=== PATIENT | female | born 1980 | race African-American/Black ===

== ENCOUNTER 2016-06-07 14:11 | Emergency (ER) | payer OTHER ==
[2016-06-07] MEDS ORDERED: RX INFO: IV CONTRAST WAS GIVEN 1 EACH MISC MISCELLANE PRN (14:35)
[2016-06-07] MEDS ORDERED: IOHEXOL 350 MG/ML 25 ML BOTTLE (ORAL USE) PO PRN (14:35)
[2016-06-07] MEDS ORDERED: SODIUM CHLORIDE 0.9% 1,000 ML IV ONE (14:35)
[2016-06-07] MEDS ORDERED: ONDANSETRON 4 MG/2 ML VIAL IVP STA (14:35)
[2016-06-07] MEDS ORDERED: MORPHINE SULFATE 4 MG/ML SYRINGE IVP STA (14:35)
[2016-06-07 15:32] LABS: Anisocytosis Slight; Basophils % (A) 1 %; CH 25.3; CHCM 31.3; Eosinophils # (A) 0.2 k/uL (0-0.7); Eosinophils % (A) 5 %; HCT 37.1 % (34.0-46.0); HDW 2.58; HGB 11.4 gm/dL (11.4-16.0); Hypochromasia Slight; Luc # (Auto) 0.13; Luc % (Auto) 3; Lymphocytes # (A) 1.3 k/uL (1.0-4.8); Lymphocytes % (A) 29 %; MCHC 30.8 g/dL (31.0-37.0); MCV 81.3 fL (80.0-100.0); Mean Platelet Volume 7.3; Monocytes # (A) 0.4 k/uL (0-1.0); Monocytes % (A) 8 %; Neutrophils # (A) 2.5 k/uL (1.3-7.7); Neutrophils % (A) 54 %; RBC 4.56 m/uL (3.80-5.40); RDW 16.1 % (11.5-15.5); WBC 4.6 k/uL (3.8-10.6); WBC (Perox) 4.88
[2016-06-07 15:36] LABS: Appearance,Urine Cloudy (Clear); Bilirubin,Urine Negative (Negative); Glucose,Urine (UA) Negative (Negative); Ketones,Urine Negative (Negative); Leukocyte Esterase,Urine Negative (Negative); Mucus,Urine Rare /hpf; Nitrite,Urine Negative (Negative); Particle Count 4585; Protein,Urine Trace (Negative); RBC,Urine <1 /hpf (0-5); Specific Gravity,Urine 1.018 (1.001-1.035); Squamous Epithelial Cell,Urine 7 /hpf (0-4); UA Billing (MACRO vs. MICRO) MICRO; WBC,Urine 4 /hpf (0-5)
[2016-06-07 15:42] LABS: ALT 28 U/L (9-52); AST 24 U/L (14-36); Alkaline Phosphatase 52 U/L (38-126); Anion Gap 12 mmol/L; Blood Urea Nitrogen 14 mg/dL (7-17); Calcium 9.5 mg/dL (8.4-10.2); Carbon Dioxide 25 mmol/L (22-30); Chloride 108 mmol/L (98-107); Glucose 96 mg/dL (74-99); Non-African American GFR(MDRD) >60 (>60 ml/min/1.73 sqM); Potassium 4.4 mmol/L (3.5-5.1); Sodium 145 mmol/L (137-145); Total Bilirubin 0.3 mg/dL (0.2-1.3); Total Protein 7.6 g/dL (6.3-8.2)
--- NOTE | 2016-06-07 17:19 | CT ---
EXAMINATION TYPE: CT abdomen pelvis w con DATE OF EXAM: 06/07/2016 5:10 PM COMPARISON: 02/22/2013 HISTORY: Pt states of periumbilical pain and hernia. CT DLP: 1775 mGycm Automated exposure control for dose reduction was used. TECHNIQUE: Helical acquisition of images was performed from the lung bases through the pelvis. CONTRAST: Performed with Oral Contrast and with IV Contrast, patient injected with 100 mL of Omnipaque 300. FINDINGS: The lung bases are clear of consolidation. There is mild subsegmental atelectasis in the left lower l obe. There is no pleural effusion. There is a small hiatal hernia. There is no pericardial effusion. The liver spleen pancreas appear normal. Bile ducts are not dilated. There are clips from cholecystec renetta. There is no adrenal mass. Kidneys show satisfactory contrast opacification. There is no hydrone phrosis. There is no retroperitoneal adenopathy. I see no intestinal wall thickening. There are no di lated loops. Uterus is tilted to the right side. Bladder distends smoothly. There is no sign of a pel shira mass. Appendix appears normal. There are surgical clips around the stomach. There are tiny bilate ral renal cortical cysts that measure up to 1 cm. The heart is probably enlarged. IMPRESSION: THERE IS PROBABLY CARDIOMEGALY. NO SIGN OF ACUTE ABDOMEN AND PELVIS. NO ADVERSE CHANGE COMPARED TO OL D EXAM.
--- NOTE | 2016-06-07 17:39 | ED ---
General Adult HPI - General Chief complaint: Abdominal Pain Stated complaint: Dr Givens/Erickson Pain Time Seen by Provider: 06/07/16 14:25 Source: patient, RN notes reviewed, old records reviewed Mode of arrival: ambulatory Limitations: no limitations - History of Present Illness Initial comments: 35 year old female with history gastric bypass presenting for abdominal pain. Patient states she has 2 ventral hernias which have been bothering her in the past few days. She states she has had worsening abdominal pain over the past 3 days. States nausea associated but no vomiting. She denies any diarrhea or constipation. She denies any blood in her stool. She denies any fevers or chills. She states she has follow-up on the first with Dr. Enriquez for further evaluation of her hernias. - Related Data Home Medications Medication Instructions Recorded Confirmed amLODIPine [Norvasc] 10 mg PO DAILY 03/26/14 06/07/16 ALPRAZolam [Xanax] 0.5 mg PO BID PRN 06/10/14 06/07/16 Loratadine [Claritin] 10 mg PO DAILY PRN 06/10/14 06/07/16 Fluticasone Propionate [Flonase 2 spray EA NOSTRIL DAILY PRN 08/23/14 06/07/16 Allergy Relief] Lisinopril [Prinivil] 20 mg PO DAILY 08/23/14 06/07/16 Butalbit/Acetamin/Caff/Codeine 1 - 2 cap PO Q4HR PRN 03/14/15 06/07/16 [Fioricet-Cod 79-921-81-30 Cap] HYDROcodone/APAP 7.5-325MG [[place] 1 tab PO Q4H PRN 12/29/15 06/07/16 7.5-325] Omeprazole [PriLOSEC] 40 mg PO AC-BRKFST 06/07/16 06/07/16 Propranolol HCl [Propranolol HCl 120 mg PO DAILY 06/07/16 06/07/16 ER] Previous Rx's Medication Instructions Recorded Ferrous Sulfate [Feosol] 325 mg PO TID #90 tab 05/13/15 Folic Acid 1 mg PO DAILY #30 tablet 05/13/15 HYDROcodone/APAP 7.5-325MG [[place] 1 tab PO Q6HR PRN #12 tab 06/07/16 7.5-325] Ondansetron Odt [Zofran Odt] 4 mg PO Q8HR PRN #12 tab 06/07/16 Allergies Allergy/AdvReac Type Severity Reaction Status Date / Time sulfamethoxazole Allergy Rash/Hives Verified 06/07/16 14:44 [From Bactrim] trimethoprim [From Bactrim] Allergy Rash/Hives Verified 06/07/16 14:44 Review of Systems ROS Statement: Those systems with pertinent positive or pertinent negative responses have been documented in the HPI. Constitutional: No fevers. No chills. No change in appetite. No unexpected weight loss. Eyes: No visual changes. No eye pain. No sensitivity to light. HENT: No sinus pressure. No ear pain. No hearing changes. No epistaxis. No sore throat. Respiratory: No cough. No SOB. No wheezing. Cardiovascular: No chest pain. No palpitations. No lower extremity edema. Abdomen: Positive abdominal pain. Positive nausea. No vomiting. No diarrhea. Positive ventral hernias. Genitourinary: No dysuria. No hematuria. No difficulty urinating. No flank pain. Musculoskeletal: No injury. No back pain. No myalgias. Skin: No rash. No lesions. No lacerations. Neuro: No gross strength deficits. No LOC. No seizures. No headache. Psych: No confusion. No memory changes. No anxiety/depression. ROS Other: All systems not noted in ROS Statement are negative. Past Medical History Past Medical History: Hypertension, Pneumonia Additional Past Medical History / Comment(s): ULCER LONG AGO. MIGRAINES, ABDOMINAL PAIN. hernia History of Any Multi-Drug Resistant Organisms: None Reported Past Surgical History: Bariatric Surgery, Breast Surgery, Section, Cholecystectomy, Hernia Repair, Tonsillectomy Additional Past Surgical History / Comment(s): CONCEPCIÓN-N-Y 2007. BREAST REDUCTION. TUMMY RADHA. INC[employer] Hernia repair 08/22/14 Past Anesthesia/Blood Transfusion Reactions: No Reported Reaction, Family History of Problems w/ Anesthesia Additional Past Anesthesia/Blood Transfusion Reaction / Comment(s): MOTHER AWAKENS DURING SURGERY. Past Psychological History: Anxiety, Panic Disorder Smoking Status: Current every day smoker Past Alcohol Use History: Occasional Past Drug Use History: Marijuana Additional Drug Use History / Comment(s): RARE USE OF MARIJUANA - Past Family History Father Family Medical History: Hypertension Brother(s) Family Medical History: No Reported History General Exam - General Exam Comments Initial Comments: General: Awake and Alert. No acute distress. Does not appear acutely ill. Obese. Eyes: ANITA, EOM intact. No nystagmus. No scleral icterus. HENT: Atraumatic, normocephalic. Mucous membranes moist. Trachea midline. Neck: The neck is supple, there is no tenderness or JVD. Cardiovascular: Regular rate and rhythm. No murmur, rub, or gallop is appreciated. Distal pulses intact. Respiratory: Lungs are clear to auscultation bilaterally. No wheezes, rales, rhonchi. No respiratory distress. Gastrointestinal: Soft, mild tenderness over her umbilical hernia, which is reducible. There is another ventral hernia in the middle right abdomen which is also reducible. No rebound or guarding. Non-distended. No masses or organomegaly noted. No CVA tenderness. Musculoskeletal: No tenderness. Normal ROM. No gross deformity. No strength deficits. Neurological: A&Ox3. CN II-XII grossly intact, There are no obvious motor or sensory deficits. Coordination appears grossly intact. Speech is normal. Skin: Skin is warm and dry and no rashes or lesions are noted. Psychiatric: Cooperative, appropriate mood & affect, normal judgment. Limitations: no limitations Course Vital Signs 06/07/16 06/07/16 14:19 18:28 Temperature 98.1 F 97.9 F Pulse Rate 72 78 Respiratory 18 16 Rate Blood Pressure 143/65 146/87 O2 Sat by Pulse 99 Oximetry Medical Decision Making - Medical Decision Making 35-year-old female with history of gastric bypass presenting for abdominal pain. Patient does have 2 ventral hernias which are reducible on exam. She has tenderness over these areas of hernia but no evidence of acute peritonitis at this time. Given her history of gastric bypass there are concerns for obstruction, CT imaging was ordered. Lab workup was performed which is grossly unremarkable. Patient was given pain and nausea medications and IV fluids during course in ED. Upon reevaluation patient was updated on results and imaging. CT imaging with no acute process. She is feeling improved after medications. Discussed reassuring findings at this time. Recommend close follow-up with her PCP and her surgeon Dr. Enriquez, she states she has an appointment next week. Discussed concerning signs and symptoms for immediate return to the ED. Patient is agreeable with plan and discharge. - Lab Data Result diagrams: 06/07/16 15:10 06/07/16 15:10 Lab Results 06/07/16 06/07/16 06/07/16 Range/Units 15:10 15:10 15:10 WBC 4.6 (3.8-10.6) k/uL RBC 4.56 (3.80-5.40) m/uL Hgb 11.4 (11.4-16.0) gm/dL Hct 37.1 (34.0-46.0) % MCV 81.3 (80.0-100.0) fL MCH 25.0 (25.0-35.0) pg MCHC 30.8 L (31.0-37.0) g/dL RDW 16.1 H (11.5-15.5) % Plt Count 338 (150-450) k/uL Neutrophils % 54 % Lymphocytes % 29 % Monocytes % 8 % Eosinophils % 5 % Basophils % 1 % Neutrophils # 2.5 (1.3-7.7) k/uL Lymphocytes # 1.3 (1.0-4.8) k/uL Monocytes # 0.4 (0-1.0) k/uL Eosinophils # 0.2 (0-0.7) k/uL Basophils # 0.0 (0-0.2) k/uL Hypochromasia Slight Anisocytosis Slight Sodium 145 (137-145) mmol/L Potassium 4.4 (3.5-5.1) mmol/L Chloride 108 H (98-107) mmol/L Carbon Dioxide 25 (22-30) mmol/L Anion Gap 12 mmol/L BUN 14 (7-17) mg/dL Creatinine 0.70 (0.52-1.04) mg/dL Est GFR (MDRD) Af Amer >60 (>60 ml/min/1.73 sqM) Est GFR (MDRD) Non-Af >60 (>60 ml/min/1.73 sqM) Glucose 96 (74-99) mg/dL Plasma Lactic Acid Gene (0.7-2.0) mmol/L Calcium 9.5 (8.4-10.2) mg/dL Total Bilirubin 0.3 (0.2-1.3) mg/dL AST 24 (14-36) U/L ALT 28 (9-52) U/L Alkaline Phosphatase 52 (38-126) U/L Total Protein 7.6 (6.3-8.2) g/dL Albumin 4.4 (3.5-5.0) g/dL Lipase 120 (23-300) U/L Urine Color Urine Appearance (Clear) Urine pH (5.0-8.0) Ur Specific [place] (1.001-1.035) Urine Protein (Negative) Urine Glucose (UA) (Negative) Urine Ketones (Negative) Urine Blood (Negative) Urine Nitrate (Negative) Urine Bilirubin (Negative) Urine Urobilinogen (<2.0) mg/dL Ur Leukocyte Esterase (Negative) Urine RBC (0-5) /hpf Urine WBC (0-5) /hpf Ur Squamous Epith Cells (0-4) /hpf Hyaline Casts (0-2) /lpf Urine Mucus (None) /hpf Urine HCG, Qual Not Detected (Not Detectd) 06/07/16 06/07/16 Range/Units 15:10 15:10 WBC (3.8-10.6) k/uL RBC (3.80-5.40) m/uL Hgb (11.4-16.0) gm/dL Hct (34.0-46.0) % MCV (80.0-100.0) fL MCH (25.0-35.0) pg MCHC (31.0-37.0) g/dL RDW (11.5-15.5) % Plt Count (150-450) k/uL Neutrophils % % Lymphocytes % % Monocytes % % Eosinophils % % Basophils % % Neutrophils # (1.3-7.7) k/uL Lymphocytes # (1.0-4.8) k/uL Monocytes # (0-1.0) k/uL Eosinophils # (0-0.7) k/uL Basophils # (0-0.2) k/uL Hypochromasia Anisocytosis Sodium (137-145) mmol/L Potassium (3.5-5.1) mmol/L Chloride (98-107) mmol/L Carbon Dioxide (22-30) mmol/L Anion Gap mmol/L BUN (7-17) mg/dL Creatinine (0.52-1.04) mg/dL Est GFR (MDRD) Af Amer (>60 ml/min/1.73 sqM) Est GFR (MDRD) Non-Af (>60 ml/min/1.73 sqM) Glucose (74-99) mg/dL Plasma Lactic Acid Gene 1.1 (0.7-2.0) mmol/L Calcium (8.4-10.2) mg/dL Total Bilirubin (0.2-1.3) mg/dL AST (14-36) U/L ALT (9-52) U/L Alkaline Phosphatase (38-126) U/L Total Protein (6.3-8.2) g/dL Albumin (3.5-5.0) g/dL Lipase (23-300) U/L Urine Color Yellow Urine Appearance Cloudy H (Clear) Urine pH 6.0 (5.0-8.0) Ur Specific [place] 1.018 (1.001-1.035) Urine Protein Trace H (Negative) Urine Glucose (UA) Negative (Negative) Urine Ketones Negative (Negative) Urine Blood Negative (Negative) Urine Nitrate Negative (Negative) Urine Bilirubin Negative (Negative) Urine Urobilinogen 4.0 (<2.0) mg/dL Ur Leukocyte Esterase Negative (Negative) Urine RBC <1 (0-5) /hpf Urine WBC 4 (0-5) /hpf Ur Squamous Epith Cells 7 H (0-4) /hpf Hyaline Casts 1 (0-2) /lpf Urine Mucus Rare H (None) /hpf Urine HCG, Qual (Not Detectd) - Radiology Data Radiology results: report reviewed, image reviewed Disposition Clinical Impression: Nonspecific abdominal pain, Ventral hernia Disposition: HOME SELF-CARE Condition: Stable Instructions: Abdominal Pain (ED), Ventral Hernia (ED) Prescriptions: HYDROcodone/APAP 7.5-325MG [[place] 7.5-325] 1 tab PO Q6HR PRN #12 tab PRN Reason: Pain Ondansetron Odt [Zofran Odt] 4 mg PO Q8HR PRN #12 tab PRN Reason: Nausea Referrals: Pdero Luis Mandel MD [Primary Care Provider] - 1-2 days Time of Disposition: 18:02
[2016-06-07] MEDS ORDERED: HYDROcodone/APAP 5-325MG 1 EACH TAB PO STA (18:11)
[2016-06-07 18:29] VITALS: BP 146/87; PULSE 78; RESP 16; TEMP 97.9
== END 2016-06-07 18:42 | disposition home or self-care (01) ==
LOC: EC 14:11
DX: K43.9 Ventral hernia without obstruction or gangrene (principal); R10.9 Unspecified abdominal pain; I10 Essential (primary) hypertension; F41.9 Anxiety disorder, unspecified; E11.9 Type 2 diabetes mellitus without complications; F41.0 Panic disorder [episodic paroxysmal anxiety]; E66.9 Obesity, unspecified; F17.200 Nicotine dependence, unspecified, uncomplicated; Z87.01 Personal history of pneumonia (recurrent); Z79.899 Other long term (current) drug therapy; Z88.2 Allergy status to sulfonamides; Z98.84 Bariatric surgery status; Z98.890 Other specified postprocedural states
CPT/HCPCS: 99285 ×2; 96374 ×2; 96375 ×2; 96361 ×4; 36415; 80053; 83605; 83690; 85025; 81001; 81025; 74177; J2270; J2405; Q9967

== ENCOUNTER → 2016-06-19 | Outpatient (CLI) | payer OTHER ==
[2016-06-19 16:27] VITALS: BP 145/84; PULSE 50; TEMP 98.2; BMI 45.6
--- NOTE | 2016-06-23 17:57 | P.PN ---
Progress Note - Text DATE OF SERVICE: 06/19/2016 CHIEF COMPLAINT: History of gastric bypass. HISTORY OF PRESENT ILLNESS: Raiza Rodríguez is a 35-year-old female with history of Tricia-en-Y gastric bypass performed almost 6 going on 7 years ago. She reports having problems with chronic pain. She takes Fioricet for headaches. Separately, she has a pertinent history of massive weight loss and had a panniculectomy. Since then, she has had multiple abdominal wall hernias particularly of the umbilicus with chronic pain. As of recent she was seen in the emergency room for similar complaints. Her highest weight for her 5 feet 1 inch frame was 417 pounds. Today she comes in weighing 241 pounds. Her ideal body weight is 131 pounds. She is still 110 pounds overweight time. She has actually been able to maintain her weight loss of 1 pound in the past year. Percent excess weight loss is still 62%. Body mass index is reduced from 79 down to 45.6. Now she presents for further evaluation and management especially for treatment of her abdominal wall hernia. PAST MEDICAL HISTORY: 1. Super super morbid obesity. Prior body mass index of 79. 2. Active tobacco abuse. 3. Anxiety. 4. Hypertension. 5. Seasonal allergies. 6. Abdominal wall hernia. PAST SURGICAL HISTORY: 1. Status post Tricia-en-Y gastric bypass. 2. Panniculectomy. 3. . 4. Cholecystectomy. 5. Bilateral breast reduction. 6. Diagnostic laparoscopy with laparoscopic lysis of adhesions. 7. Laparoscopic ventral incisional hernia repair. MEDICATIONS: 1. Norvasc. 2. Propranolol. 3. Zofran. 4. Prilosec. 5. Claritin. 6. Prinivil. 7. [place]. 8. Folic acid. 9. Flonase. 10. Iron sulfate. 11. Fioricet. 12. Xanax. ALLERGIES: 1. BACTRIM. 2. HYDROMORPHONE. 3. TRIMETHOPRIM. SOCIAL HISTORY: Active tobacco use with alcohol use. Also has occasional marijuana use. FAMILY HISTORY: Pertinent for morbid obesity. Also has diabetes in her family. REVIEW OF SYSTEMS: CONSTITUTIONAL: [place] body weight 131 pounds. Highest weight of 417 pounds. Present weight 241 pounds. Total lifetime weight loss of 176 pounds. Percent excess weight loss is 62%. She has lost 1 more pound since her last visit a year ago. Body mass index reduced from 79 down to 45.6. Total BMI point reduction of 33.4. GASTROINTESTINAL: No reports of dumping syndrome or gastroesophageal reflux disease. Her dietary intake is minimal where she barely eats one meal a day. NEURO: History of chronic pain syndrome. CARDIOVASCULAR: Hypertension. MUSCULOSKELETAL: Reports lower back pain including bilateral hip pain. HEENT: No troubles with vision or hearing. ENDOCRINE: No reports of diabetes or thyroid disorder. RESPIRATORY: Denies any dyspnea on exertion. GENITOURINARY: Denies any blood in urine. PSYCH: Denies any suicidal ideation or depression. PHYSICAL EXAM: VITAL SIGNS: 98.2, 50, 145/84; 5 feet 1 inch, 241 pounds. Body mass index 45.6. ABDOMEN: Palpable 2 cm defect along the umbilicus. Well healed panniculectomy incisions along the midline including of the lower pelvis. Tenderness noted along the right upper abdomen. HEENT: No scleral icterus. Extraocular movements grossly intact. Moist buccal mucosa. NECK: Supple without lymphadenopathy. CHEST: Unlabored respirations with equal bilateral excursions. CARDIOVASCULAR: Regular rate and rhythm. MUSCULOSKELETAL: No clubbing, cyanosis, or edema. NEURO: No focal or lateralizing signs. PSYCH: Appropriate affect. Alert and oriented to person, place, and time. LABS: Recent labs in the ER were reviewed hemoglobin low at 11.4. MCH was low at 30.8. RDW was elevated at 16.1. Slight hypochromasia identified. Chloride was elevated at 108. Lipase was within normal limits. Urine was positive for trace protein. STUDIES: Recent CT of the abdomen and pelvis obtained 06/07/2016 was also reviewed with findings demonstrating no evidence of small bowel obstruction. Cardiomegaly is identified. Hiatal hernia is identified. Atelectasis also identified. ASSESSMENT: 1. History of epigastric and periumbilical pain. 2. Incisional umbilical hernia. 3. History of Tricia-en-Y gastric bypass. 4. Status post massive weight loss of 176 pounds. 5. Active tobacco use. 6. Medical noncompliance of dietary guidelines of bariatric procedure. 7. History of chronic pain. 8. Hypertensive heart disease with cardiomegaly. PLAN: 1. I reviewed with her that surgical intervention with a laparoscopic ventral hernia repair will need approximately 4 weeks of recovery. 2. Deep venous thrombosis prophylaxis. 3. Antibiotic prophylaxis. 4. Will need an abdominal binder postop. 5. She does report pain also on the right upper quadrant which may be secondary to intestinal or intra-abdominal adhesions, which will be addressed at the time of her procedure. 6. She also has known history of right inguinal hernia from previous operations; however, she is asymptomatic at this time. 7. Would recommend additional adjuncts for her pain control. 8. As she is on chronic pain meds, would also recommend referral to a pain specialist for management.
== END | disposition home or self-care (01) ==
LOC: BARWHC3 14:15
PROVIDERS: ATTEND Surgery Plastic and Reconstructive Surgery
DX: Z48.815 Encounter for surgical aftercare following surgery on the digestive system (principal); Z98.84 Bariatric surgery status; Z68.42 Body mass index [BMI] 45.0-49.9, adult; R51 Headache; R10.13 Epigastric pain; R10.10 Upper abdominal pain, unspecified; K42.9 Umbilical hernia without obstruction or gangrene; Z91.11 Patient's noncompliance with dietary regimen; F17.200 Nicotine dependence, unspecified, uncomplicated; G89.29 Other chronic pain; I11.9 Hypertensive heart disease without heart failure; I51.7 Cardiomegaly; Z88.1 Allergy status to other antibiotic agents; Z88.8 Allergy status to other drugs, medicaments and biological substances; F12.90 Cannabis use, unspecified, uncomplicated; Z79.899 Other long term (current) drug therapy; F41.9 Anxiety disorder, unspecified
CPT/HCPCS: 99211

== ENCOUNTER 2016-06-27 11:18 | Emergency (ER) | payer OTHER ==
--- NOTE | 2016-06-27 12:08 | ED ---
General Adult HPI - General Chief complaint: Abdominal Pain Stated complaint: vomiting Time Seen by Provider: 06/27/16 11:53 Source: patient, RN notes reviewed Mode of arrival: ambulatory Limitations: no limitations - History of Present Illness Initial comments: Patient 35-year-old female who presents emergency room today with multiple complaints. She does admit to cough congestion with some sinus pressure. She also admits to lower abdominal pain with hernias. States she is 3 hernias that are scheduled to be repaired. She states she's had some symptoms of nausea vomiting started 2 days ago. She states that since nausea and vomiting the pain in the abdomen has increased over these hernias. She states she feels that it is consistent with pain that she's had in the past. She also admits that she is out of pain medication of [place] that she's taken for this pain. Patient does admit to increased sinus pressure congestion and tenderness over the sinuses. Admits to a mild cough. Currently denies any other complaints or symptoms. Patient denies any recent shortness of breath, chest pain, back pain , numbness or tingling, dysuria or hematuria, constipation or diarrhea, headaches or visual changes, or any other complaints. - Related Data Home Medications Medication Instructions Recorded Confirmed amLODIPine [Norvasc] 10 mg PO DAILY 03/26/14 06/20/16 ALPRAZolam [Xanax] 0.5 mg PO BID PRN 06/10/14 06/20/16 Loratadine [Claritin] 10 mg PO DAILY PRN 06/10/14 06/20/16 Fluticasone Propionate [Flonase 2 spray EA NOSTRIL DAILY PRN 08/23/14 06/20/16 Allergy Relief] Lisinopril [Prinivil] 20 mg PO DAILY 08/23/14 06/20/16 Butalbit/Acetamin/Caff/Codeine 1 - 2 cap PO Q4HR PRN 03/14/15 06/20/16 [Fioricet-Cod 78-500-22-30 Cap] HYDROcodone/APAP 7.5-325MG [[place] 1 tab PO Q4H PRN 12/29/15 06/20/16 7.5-325] Omeprazole [PriLOSEC] 40 mg PO AC-BRKFST 06/07/16 06/20/16 Propranolol HCl [Propranolol HCl 120 mg PO DAILY 06/07/16 06/20/16 ER] Previous Rx's Medication Instructions Recorded Ferrous Sulfate [Feosol] 325 mg PO TID #90 tab 05/13/15 Folic Acid 1 mg PO DAILY #30 tablet 05/13/15 HYDROcodone/APAP 7.5-325MG [[place] 1 tab PO Q6HR PRN #12 tab 06/07/16 7.5-325] Ondansetron Odt [Zofran Odt] 4 mg PO Q8HR PRN #12 tab 06/07/16 Amoxicillin/Potassium Clav 1 each PO Q12HR #20 tab 06/27/16 [Augmentin 875-125 Tablet] Fluticasone Propionate [Flonase 1 - 2 spray EA NOSTRIL DAILY 5 Days 06/27/16 Allergy Relief] Hydrocodone/Acetaminophen [[place] 1 each PO Q6HR PRN #20 tab 06/27/16 5-325] Ondansetron Odt [Zofran ODT] 4 mg PO Q8HR PRN #15 tab 06/27/16 Allergies Allergy/AdvReac Type Severity Reaction Status Date / Time sulfamethoxazole Allergy Rash/Hives Verified 06/27/16 11:40 [From Bactrim] trimethoprim [From Bactrim] Allergy Rash/Hives Verified 06/27/16 11:40 Review of Systems ROS Statement: Those systems with pertinent positive or pertinent negative responses have been documented in the HPI. ROS Other: All systems not noted in ROS Statement are negative. Past Medical History Past Medical History: Hypertension, Pneumonia Additional Past Medical History / Comment(s): ULCER LONG AGO. MIGRAINES, ABDOMINAL PAIN. hernia History of Any Multi-Drug Resistant Organisms: None Reported Past Surgical History: Bariatric Surgery, Breast Surgery, Section, Cholecystectomy, Hernia Repair, Tonsillectomy Additional Past Surgical History / Comment(s): CONCEPCIÓN-N-Y 2008. BREAST REDUCTION. TUMRAYRAY GARCIA. [employer] Hernia repair 08/22/14 Past Anesthesia/Blood Transfusion Reactions: No Reported Reaction, Family History of Problems w/ Anesthesia Additional Past Anesthesia/Blood Transfusion Reaction / Comment(s): MOTHER AWAKENS DURING SURGERY. Past Psychological History: Anxiety, Panic Disorder Smoking Status: Current every day smoker Past Alcohol Use History: Occasional Past Drug Use History: Marijuana Additional Drug Use History / Comment(s): RARE USE OF MARIJUANA - Past Family History Father Family Medical History: Hypertension Brother(s) Family Medical History: No Reported History General Exam - General Exam Comments Initial Comments: General: The patient is awake and alert, in no distress, and does not appear acutely ill. Eye: Pupils are equal, round and reactive to light, extra-ocular movements are intact. No nystagmus. There is normal conjunctiva bilaterally. No signs of icterus. Ears, nose, mouth and throat: There are moist mucous membranes and no oral lesions. Tender over the maxillary sinuses. Neck: The neck is supple, there is no tenderness or JVD. Cardiovascular: There is a regular rate and rhythm. No murmur, rub or gallop is appreciated. Respiratory: Lungs are clear to auscultation, respirations are non-labored, breath sounds are equal. No wheezes, stridor, rales, or rhonchi. Gastrointestinal: Soft, non-distended, non-tender abdomen without masses or organomegaly noted. There is no rebound or guarding present. No CVA tenderness. Bowel sounds are unremarkable. Musculoskeletal: Normal ROM, no tenderness. Strength 5/5. Sensation intact. Pulses equal bilaterally 2+. Neurological: A&O x 3. CN II-XII intact, There are no obvious motor or sensory deficits. Coordination appears grossly intact. Speech is normal. Skin: Skin is warm and dry and no rashes or lesions are noted. Psychiatric: Cooperative, appropriate mood & affect, normal judgment. Limitations: no limitations Course Vital Signs 06/27/16 11:36 Temperature 99.3 F Pulse Rate 50 L Respiratory 16 Rate Blood Pressure 160/84 O2 Sat by Pulse 100 Oximetry Medical Decision Making - Medical Decision Making Patient examined here in the emergency room. Shows no signs of distress. She states she feels comfortable. She states she is on pain medication as had some symptoms of nausea along with nasal congestion. Options were discussed with patient about IV lab work along with IV hydration fluids and pain medication. Patient states she feels comfortable going home with oral medications. Will be given a short prescription for [place] that she's been on in the past for her abdominal pain with these hernias. States his pain is same as she's felt in the past. Does not feel that it is anything different. Patient given nausea location. Also treated for sinus infection and she is tender over the sinuses. Patient advised to follow-up family doctor/surgeon and also return here to the emergency room if any symptoms increase or worsen. Patient states understanding and is in agreement. Disposition Clinical Impression: Acute sinusitis, Medication refill, Nausea & vomiting, Chronic abdominal pain Disposition: HOME SELF-CARE Condition: Good Instructions: Sinusitis (ED) Additional Instructions: Please use [id number] Claritin/Sudafed as discussed. Please use medications as prescribed. Please follow-up the surgeon/family doctor over the next 2 days. Please return here the emergency room if any symptoms increase or worsen or for any other concerns. Prescriptions: Amoxicillin/Potassium Clav [Augmentin 875-125 Tablet] 1 each PO Q12HR #20 tab Fluticasone Propionate [Flonase Allergy Relief] 1 - 2 spray EA NOSTRIL DAILY 5 Days Hydrocodone/Acetaminophen [[place] 5-325] 1 each PO Q6HR PRN #20 tab PRN Reason: Pain Ondansetron Odt [Zofran ODT] 4 mg PO Q8HR PRN #15 tab PRN Reason: Nausea Time of Disposition: 12:07
[2016-06-27 12:33] VITALS: BP 150/70; PULSE 86; RESP 18; TEMP 98
== END 2016-06-27 12:33 | disposition home or self-care (01) ==
LOC: EC 11:18
DX: Z76.0 Encounter for issue of repeat prescription (principal); R10.30 Lower abdominal pain, unspecified; J01.90 Acute sinusitis, unspecified; G89.29 Other chronic pain; I10 Essential (primary) hypertension; R11.2 Nausea with vomiting, unspecified; F41.9 Anxiety disorder, unspecified; F41.0 Panic disorder [episodic paroxysmal anxiety]; F17.200 Nicotine dependence, unspecified, uncomplicated; F12.90 Cannabis use, unspecified, uncomplicated; Z88.2 Allergy status to sulfonamides; Z79.899 Other long term (current) drug therapy; Z79.51 Long term (current) use of inhaled steroids
CPT/HCPCS: 99283

== ENCOUNTER → 2016-07-12 | Outpatient (CLI) | payer OTHER ==
[2016-07-12 15:21] LABS: EKG EKG PERFORMED
[2016-07-12 15:53] LABS: Basophils # (A) 0.1 k/uL (0-0.2); Basophils % (A) 1 %; CHCM 30.4; Eosinophils # (A) 0.3 k/uL (0-0.7); Eosinophils % (A) 5 %; HCT 38.8 % (34.0-46.0); HDW 2.61; HGB 11.7 gm/dL (11.4-16.0); Hypochromasia Marked; Luc # (Auto) 0.14; Luc % (Auto) 2; Lymphocytes # (A) 1.4 k/uL (1.0-4.8); Lymphocytes % (A) 22 %; MCH 24.9 pg (25.0-35.0); MCHC 30.1 g/dL (31.0-37.0); MCV 82.6 fL (80.0-100.0); Monocytes # (A) 0.2 k/uL (0-1.0); Monocytes % (A) 4 %; Neutrophils # (A) 4.1 k/uL (1.3-7.7); Neutrophils % (A) 66 %; RBC 4.69 m/uL (3.80-5.40); RDW 15.9 % (11.5-15.5); WBC 6.2 k/uL (3.8-10.6); WBC (Perox) 6.55
[2016-07-12 16:17] LABS: ALT 25 U/L (9-52); AST 20 U/L (14-36); Alkaline Phosphatase 47 U/L (38-126); Anion Gap 10 mmol/L; Blood Urea Nitrogen 12 mg/dL (7-17); Calcium 9.6 mg/dL (8.4-10.2); Carbon Dioxide 27 mmol/L (22-30); Chloride 105 mmol/L (98-107); Glucose 93 mg/dL (74-99); Non-African American GFR(MDRD) >60 (>60 ml/min/1.73 sqM); Potassium 4.6 mmol/L (3.5-5.1); Sodium 142 mmol/L (137-145); Total Bilirubin 0.5 mg/dL (0.2-1.3); Total Protein 7.7 g/dL (6.3-8.2)
== END ==
LOC: LABPAT 15:11
PROVIDERS: ATTEND Surgery Plastic and Reconstructive Surgery
DX: Z01.810 Encounter for preprocedural cardiovascular examination (principal); Z01.812 Encounter for preprocedural laboratory examination
CPT/HCPCS: 80053; 85025; 86850; 86900; 86901; 93005

== ENCOUNTER 2016-07-15 09:30 | Day surgery (SDC) | payer OTHER ==
[2016-07-11 14:35] VITALS: BMI 43.8
--- NOTE | 2016-07-15 07:46 | P.GSHP ---
History of Present Illness H&P Date: 07/15/16 DATE OF SERVICE: 07/15/2016 CHIEF COMPLAINT: Incisional hernia HISTORY OF PRESENT ILLNESS: Raiza Rodríguez is a 35-year-old female with history of Tricia-en-Y gastric bypass performed almost 6 going on 7 years ago. She reports having problems with chronic pain. She takes Fioricet for headaches. Separately, she has a pertinent history of massive weight loss and had a panniculectomy. Since then, she has had multiple abdominal wall hernias particularly of the umbilicus with chronic pain. As of recent she was seen in the emergency room for similar complaints. Her highest weight for her 5 feet 1 inch frame was 417 pounds. Today she comes in weighing 231 pounds. Her ideal body weight is 131 pounds. She is still 100 pounds overweight time. Body mass index is reduced from 79 down to 43.8. Now she presents for further evaluation and management especially for treatment of her abdominal wall hernia. PAST MEDICAL HISTORY: 1. Super super morbid obesity. Prior body mass index of 79. 2. Active tobacco abuse. 3. Anxiety. 4. Hypertension. 5. Seasonal allergies. 6. Abdominal wall hernia. PAST SURGICAL HISTORY: 1. Status post Tricia-en-Y gastric bypass. 2. Panniculectomy. 3. . 4. Cholecystectomy. 5. Bilateral breast reduction. 6. Diagnostic laparoscopy with laparoscopic lysis of adhesions. 7. Laparoscopic ventral incisional hernia repair. MEDICATIONS: 1. Norvasc. 2. Propranolol. 3. Zofran. 4. Prilosec. 5. Claritin. 6. Prinivil. 7. [place]. 8. Folic acid. 9. Flonase. 10. Iron sulfate. 11. Fioricet. 12. Xanax. ALLERGIES: 1. BACTRIM. 2. HYDROMORPHONE. 3. TRIMETHOPRIM. SOCIAL HISTORY: Active tobacco use with alcohol use. Also has occasional marijuana use. FAMILY HISTORY: Pertinent for morbid obesity. Also has diabetes in her family. REVIEW OF SYSTEMS: CONSTITUTIONAL: [place] body weight 131 pounds. Highest weight of 417 pounds. Present weight 231 pounds. Total lifetime weight loss of 186 pounds.Body mass index reduced from 79 down to 43.8. GASTROINTESTINAL: No reports of dumping syndrome or gastroesophageal reflux disease. Her dietary intake is minimal where she barely eats one meal a day. NEURO: History of chronic pain syndrome. CARDIOVASCULAR: Hypertension. MUSCULOSKELETAL: Reports lower back pain including bilateral hip pain. HEENT: No troubles with vision or hearing. ENDOCRINE: No reports of diabetes or thyroid disorder. RESPIRATORY: Denies any dyspnea on exertion. GENITOURINARY: Denies any blood in urine. PSYCH: Denies any suicidal ideation or depression. PHYSICAL EXAM: VITAL SIGNS: 98.2, 50, 145/84; 5 feet 1 inch, 231 pounds. Body mass index 43.8 ABDOMEN: Palpable 2 cm defect along the umbilicus. Well healed panniculectomy incisions along the midline including of the lower pelvis. Tenderness noted along the right upper abdomen. HEENT: No scleral icterus. Extraocular movements grossly intact. Moist buccal mucosa. NECK: Supple without lymphadenopathy. CHEST: Unlabored respirations with equal bilateral excursions. CARDIOVASCULAR: Regular rate and rhythm. MUSCULOSKELETAL: No clubbing, cyanosis, or edema. NEURO: No focal or lateralizing signs. PSYCH: Appropriate affect. Alert and oriented to person, place, and time. STUDIES: Recent CT of the abdomen and pelvis obtained 06/07/2016 was also reviewed with findings demonstrating no evidence of small bowel obstruction. Cardiomegaly is identified. Hiatal hernia is identified. Atelectasis also identified. ASSESSMENT: 1. History of epigastric and periumbilical pain. 2. Incisional umbilical hernia. 3. History of Tricia-en-Y gastric bypass. 4. Status post massive weight loss of 176 pounds. 5. Active tobacco use. 6. Medical noncompliance of dietary guidelines of bariatric procedure. 7. History of chronic pain. 8. Hypertensive heart disease with cardiomegaly. PLAN: 1. I reviewed with her that surgical intervention with a laparoscopic ventral hernia repair will need approximately 4 weeks of recovery. 2. Deep venous thrombosis prophylaxis. 3. Antibiotic prophylaxis. 4. Will need an abdominal binder postop. 5. She does report pain also on the right upper quadrant which may be secondary to intestinal or intra-abdominal adhesions, which will be addressed at the time of her procedure. 6. She also has known history of right inguinal hernia from previous operations; however, she is asymptomatic at this time. 7. Would recommend additional adjuncts for her pain control. 8. As she is on chronic pain meds, would also recommend referral to a pain specialist for management. Past Medical History Past Medical History: Hypertension, Pneumonia Additional Past Medical History / Comment(s): ULCER LONG AGO. MIGRAINES, ABDOMINAL PAIN. hernia History of Any Multi-Drug Resistant Organisms: None Reported Past Surgical History: Bariatric Surgery, Breast Surgery, Section, Cholecystectomy, Hernia Repair, Tonsillectomy Additional Past Surgical History / Comment(s): TRICIA-N-Y 2008. BREAST REDUCTION. TUMMY TUCK. INCARCERATED INC Hernia repair 08/22/14 Past Anesthesia/Blood Transfusion Reactions: No Reported Reaction, Family History of Problems w/ Anesthesia Additional Past Anesthesia/Blood Transfusion Reaction / Comment(s): MOTHER AWAKENS DURING SURGERY. Past Psychological History: Anxiety, Panic Disorder Smoking Status: Current every day smoker Past Alcohol Use History: Occasional Additional Past Alcohol Use History / Comment(s): smokes 1/2ppd,started smoking age 19 approx Past Drug Use History: Marijuana Additional Drug Use History / Comment(s): monthly USE OF MARIJUANA - Past Family History Mother Family Medical History: Hypertension Father Family Medical History: Hypertension Brother(s) Family Medical History: No Reported History Medications and Allergies Home Medications Medication Instructions Recorded Confirmed Type amLODIPine [Norvasc] 10 mg PO QAM 03/26/14 07/11/16 History ALPRAZolam [Xanax] 0.5 mg PO BID PRN 06/10/14 07/11/16 History Loratadine [Claritin] 10 mg PO DAILY PRN 06/10/14 07/11/16 History Lisinopril [Prinivil] 20 mg PO QAM 08/23/14 07/11/16 History Butalbit/Acetamin/Caff/Codeine 1 - 2 cap PO Q4HR PRN 03/14/15 07/11/16 History [Fioricet-Cod 76-886-22-30 Cap] Omeprazole [PriLOSEC] 40 mg PO AC-BRKFST 06/07/16 07/11/16 History Propranolol HCl [Propranolol HCl 120 mg PO QAM 06/07/16 07/11/16 History ER] Ferrous Sulfate [Feosol] 325 mg PO DAILY 07/11/16 07/11/16 History Allergies Allergy/AdvReac Type Severity Reaction Status Date / Time sulfamethoxazole Allergy Unknown Verified 07/11/16 14:24 [From Bactrim] Childhood trimethoprim [From Bactrim] Allergy Unknown Verified 07/11/16 14:24 Childhood
--- NOTE | 2016-07-15 07:55 | P.HPADDEND ---
H&P Addendum H&P Addendum Date: 07/15/16 We'll proceed with robotic-assisted laparoscopic incisional ventral hernia repair.
[2016-07-15] MEDS: LIDOCAINE 1% 20 ML VIAL (10MG/ML) FOR IV START INTRADERMA PRN ×2 (08:55→09:00)
[~2016-07-15 09:30] MED LIST: ACETAMINOPHEN IV (For NPO) 1,000 MG in EMPTY BAG 1 BAG IVPB ONE; DEXAMETHASONE SOD PHOSPHATE 10 MG/ML 1 ML VIAL IV ONE; HYDROmorphone 1 MG/ML 1 ML SYRINGE IVP PRN; LACTATED RINGERS 1,000 ML IV ONE; MIDAZOLAM 2 MG/2 ML VIAL IV PRN; ONDANSETRON 4 MG/2 ML VIAL IVP ONE; SCOPOLAMINE 1.5MG/72HR PATCH TRANSDERM ONE; ceFAZolin 2 GM in SODIUM CHLORIDE 0.9% 100 ML IVPB ONE
[2016-07-15] MEDS ORDERED: HEPARIN SODIUM,PORCINE 5,000 UNIT/ML 1 ML VIAL SQ STA (09:58)
[2016-07-15] MEDS ORDERED: NEOSTIGMINE 1 MG/ML 10 ML VIAL ONE (10:11)
[2016-07-15] MEDS ORDERED: HYDROmorphone (PF) 1 MG/ML ONE (10:11)
[2016-07-15] MEDS ORDERED: GLYCOPYRROLATE 0.2 MG/ML 2 ML VIAL ONE (10:11)
[2016-07-15] MEDS ORDERED: MIDAZOLAM 2 MG/2 ML VIAL ONE (10:11)
[2016-07-15] MEDS ORDERED: PROPOFOL 10 MG/ML 20 ML VIAL IV ONE (10:11)
[2016-07-15] MEDS ORDERED: ROCURONIUM BROMIDE 10 MG/ML 10 ML VIAL IV ONE (10:11)
[2016-07-15] MEDS ORDERED: fentaNYL (PF) 50 MCG/ML 2 ML AMP ONE (10:11)
[2016-07-15] MEDS ORDERED: SUCCINYLCHOLINE CHLORIDE 100 MG/5 ML SYR IV ONE (10:11)
[2016-07-15] MEDS ORDERED: LIDOCAINE 1% INJ 10MG/ML (20 ML MDV) ONE (10:11)
--- NOTE | 2016-07-15 10:33 | P.HPADDEND ---
H&P Addendum H&P Addendum Date: 07/15/16 Upon further discussion, the patient also elected to undergo a right inguinal hernia repair. We'll perform robotic-assisted umbilical hernia repair with right inguinal hernia repair possible open. Benefits and risks were described including cosmetic deformity, recurrence, need for further surgery, delayed recovery, increased pain.
[2016-07-15] MEDS: BUPIVACAINE LIPOSOME/PF 1.3% 20 ML, BUPIVACAIN-EPI 0.5%-1:200,000 25 ML, SODIUM CHLORID... MISCELLANE ONE ×6 (10:45→10:49)
[2016-07-15] MEDS ORDERED: LACTATED RINGERS 1,000 ML IV ONE (11:50)
--- NOTE | 2016-07-15 13:19 | P.PCN ---
Date of Procedure: 07/15/16 Preoperative Diagnosis: Recurrent incarcerated ventral hernia, right inguinal hernia, right upper quadrant abdominal pain Postoperative Diagnosis: Incarcerated recurrent ventral hernia, 3 cm, lower midline; initial right indirect inguinal hernia, peritoneal adhesions right upper quadrant Procedure(s) Performed: Laparoscopic lysis of adhesions over 30 minutes, robotic-assisted laparoscopic repair of recurrent incisional hernia 3 cm with 11.4 cm Bard echo mesh, laparoscopic right inguinal hernia repair Anesthesia: GETA, local (Exparel) Surgeon: Kaitlin Enriquez Estimated Blood Loss (ml): 5 Pathology: other (Incarcerated incisional hernia, right indirect inguinal hernia ) Condition: stable Disposition: same day Operative Findings: 1.5 cm initial indirect right inguinal hernia without incarceration, recurrent incarcerated incisional hernia 3 cm resected, moderate right upper quadrant adhesions addressed using LigaSure over 30 minutes
[2016-07-15] MEDS ORDERED: NALOXONE 0.4 MG/ML 1 ML VIAL IV PRN (13:21)
[2016-07-15] MEDS ORDERED: HYDROcodone/APAP 5-325MG 1 EACH TAB PO PRN (13:21)
[2016-07-15] MEDS ORDERED: ONDANSETRON 4 MG/2 ML VIAL IVP PRN (13:21)
[2016-07-15 13:30] VITALS: TEMP 98.4
[2016-07-15] MEDS ORDERED: KETOROLAC 30 MG/ML 1 ML VIAL IVP ONE (13:41)
[2016-07-15 14:27] VITALS: RESP 18
[2016-07-15 14:42] VITALS: BP 128/75; PULSE 77
[2016-07-15] MEDS ORDERED: KETOROLAC 30 MG/ML 1 ML VIAL IVP SCH (18:00)
--- NOTE | 2016-08-05 11:44 | P.OP ---
Date of Procedure: 07/15/16 Description of Procedure: SURGEON: MARY ZULETA MD FUNCTIONAL TESTER: 1. Emily Hawley. 2. Sofía Gillis PREOPERATIVE DIAGNOSES: 1. Recurrent incarcerated ventral hernia 2. Initial right inguinal hernia 3. Right upper quadrant abdominal pain 4. Morbid obesity due to excess calories. 5. Body mass index 43.8. 6. History of gastric bypass. 7. History of intra-abdominal adhesions. 8. Essential hypertension. 9. Chronic migraines. 10. Chronic pain syndrome. POSTOPERATIVE DIAGNOSES: 1. Recurrent incarcerated ventral hernia 2. Initial right inguinal hernia 3. Right upper quadrant abdominal pain 4. Morbid obesity due to excess calories. 5. Body mass index 43.8. 6. History of gastric bypass. 7. History of intra-abdominal adhesions. 8. Essential hypertension. 9. Incarcerated recurrent ventral hernia, 3 cm, lower midline 10. Initial right indirect inguinal hernia 11. Peritoneal adhesions right upper quadrant 12. Chronic migraines. 13. Chronic pain syndrome. OPERATION: 1. Laparoscopic lysis of adhesions over 30 minutes 2. Robotic-assisted laparoscopic repair of recurrent incisional hernia 3 cm with 11.4 cm Bard echo mesh umbilicus. 3. Robotic-assisted laparoscopic right inguinal hernia repair. ANESTHESIA: General with 85 mL Exparel with Sensorcaine epinephrine and normal saline mixture. ESTIMATED BLOOD LOSS: 5 mL. SPECIMENS REMOVED: 1. Incarcerated incisional hernia sac 2. right indirect inguinal hernia sac COMPLICATIONS: None. OPERATIVE FINDINGS: 1. Severe intra-abdominal adhesions greater omentum to the anterior abdominal wall. 2. 1.5 cm initial indirect right inguinal hernia without incarceration 3. Recurrent incarcerated incisional hernia 3 cm resected 4. Moderate right upper quadrant adhesions addressed using LigaSure over 30 minutes INDICATIONS: The patient is a 36-year-old female with history of previous incisional hernia repair including panniculectomy following gastric bypass. Robotic assisted laparoscopic approach was selected with her history of chronic pain syndrome and to reduce her risk for postoperative pain. Benefits and risks of the procedure including bleeding, infection, recurrence, injury to small bowel including placement of mesh repair was described. Informed consent was obtained. DESCRIPTION OF PROCEDURE: Patient was brought to the operating room, placed in supine position. After general induction, the abdomen had been prepped and draped in standard sterile fashion. The patient is then repositioned in modified lithotomy whereby the robotic da Linnea SI system was primed. After a timeout protocol was performed, the patient had been prepped and draped in standard sterile fashion and placement with [place] dressing with anticipation of mesh placement. The robot was docked between the legs of the patient and she was placed in steep Trendelenburg position. Please note prior to docking of the robot; however, a 5 mm 0 degrees laparoscopic trocar entry was performed along the left upper quadrant. Diagnostic laparoscopy confirmed severe intra-abdominal adhesions of the epigastrium and lower abdomen. Next, 8 mm robotic port was placed along the left upper abdomen. A separate 8 mm port was placed along the left lower lateral abdomen. The camera port was maintained along the left upper quadrant. Please note that the ports were placed at least 10 to 15 cm away from the target anatomy of the lower pelvis. Using a scissor for arm 2 including a grasper for arm 1, the robotic system was docked and primed as described. I then sat at the robot Hemar[employer] SI console where working arms of the robot including Bovie cautery and graspers were placed by the human resources office assistant. Initial attention was brought to the anterior abdominal wall. Using digital palpation by the human resources office assistant over the umbilical ventral defect, the peritoneum was scored. Then with downward manual pressure over the abdominal wall provided by the human resources office assistant, an incarcerated lipoma was delivered from the umbilical ventral hernia. The size of the defect was 3 cm upon measurement. The fascia was cleaned of peritoneal fat to allow for 3 to 5 cm margin. Next to address closure of the fascia, a running suture of 0 V-Loc suture 9 inch was placed to reapproximate the fascial defect edges. The fascial edges were ran at least twice to perform a fascial imbrication. Please note also that insufflation was taken down from 15 down to 10 mmHg to allow for complete closure. An Echo Ventralight ST 11 cm, circular mesh was entered into the abdominal cavity by the human resources office assistant. The rough side of the mesh was placed toward the anterior abdominal wall. The smooth side was placed towards the bowel. A grasping suture along the epicenter was brought through the skin by the human resources office assistant using a Terrance Basia. Starting from 10 o'clock position to the 6 o'clock position, 2-0 V-Loc suture was ran in a peritoneum to fascia to the mesh approach. Similarly another V-Loc stitch was run from 6 o'clock to 10 o'clock completely adhering the mesh to the anterior abdominal wall. A final endoscopic imaging was obtained. Diagnostic laparoscopy demonstrated unremarkable left groin; however, along the right groin a Nyhus type II indirect inguinal hernia of approximately 1.5 cm defect was encountered. The hernia sac of the right groin was evaginated whereby the peritoneum was scored using cautery. Using continuous retraction as well as external pressure along the right groin, the right inguinal hernia was completely reduced into the abdominal cavity. Please note the hernia was identified lateral to the epigastric vessels hence indirect. Once completely reduced into the abdominal cavity, the peritoneal sac of the hernia was stripped. The sac was resected and then passed off for further pathological analysis. The size of the hernia defect was 1.5 cm with intraoperative films obtained. Using 2-0 Surgidac, the peritoneal defect of the right inguinal hernia site was closed in a pursestring fashion. The defect was found to be completely closed after removal of the external pressure along the right groin. Complete reduction of the right inguinal hernia was confirmed. The da Linnea was undocked from the patient. I then scrubbed into the case. Attention was brought to the right upper quadrant whereby moderate oderate adhesions were identified along the right upper abdomen. The adhesions were dissected free using a combination of blunt dissection including sharp dissection with the Sonicision over 30 minutes. Using a 10 mm Endo Catch bag via the 12 mm port, the specimens were removed from the abdominal cavity. The 12 mm port site was oversewn using 0 Vicryl including a Trerance Crews as well. All pneumoperitoneum instruments were evacuated from the abdominal cavity. Attention was also made to remove any residual foreign body from the abdomen from her previous mesh repair. The incisions were reapproximated using 4-0 Monocryl in an interrupted subcuticular fashion. Please note along the proposed mesh site including along the trocar sites, Exparel was placed as a field block prior to insertion of all instruments. At the end of the procedure needle, sponge, and instrument count had been verified correct by the surgical appliance fitter. The patient's Goldberg catheter was removed with clear urine. Abdominal binder was placed. The patient was transferred to postanesthesia care unit in stable condition. Plan - Discharge Summary Discharge Medication List amLODIPine [Norvasc] 10 mg PO QAM 03/26/14 [History] ALPRAZolam [Xanax] 0.5 mg PO BID PRN 06/10/14 [History] Loratadine [Claritin] 10 mg PO DAILY PRN 06/10/14 [History] Lisinopril [Prinivil] 20 mg PO QAM 08/23/14 [History] Butalbit/Acetamin/Caff/Codeine [Fioricet-Cod 66-116-38-30 Cap] 1 - 2 cap PO Q4HR PRN 03/14/15 [History] Folic Acid 1 mg PO DAILY #30 tablet 05/13/15 [Rx] HYDROcodone/APAP 7.5-325MG [[place] 7.5-325] 1 tab PO Q6HR PRN #12 tab 06/07/16 [ Rx] Omeprazole [PriLOSEC] 40 mg PO AC-BRKFST 06/07/16 [History] Propranolol HCl [Propranolol HCl ER] 120 mg PO QAM 06/07/16 [History] Fluticasone Propionate [Flonase Allergy Relief] 1 - 2 spray EA NOSTRIL DAILY 5 Days 06/27/16 [Rx] Ondansetron Odt [Zofran ODT] 4 mg PO Q8HR PRN #15 tab 06/27/16 [Rx] Ferrous Sulfate [Feosol] 325 mg PO DAILY 07/11/16 [History] HYDROcodone/APAP 7.5-325MG [[place] 7.5-325] 1 each PO Q4H PRN #60 tab 07/24/16 [ Rx] Follow up Appointment(s)/Referral(s): Mary Zuleta MD [STAFF PHYSICIAN] - 07/17/16 2:20 pm ([facility]) Patient Instructions/Handouts: *Surgery [facility] - (Anesthesia) Discharge Instructions Outpatient Surgery, Laparoscopic Herniorrhaphy (DC), Abdominal Binder (DC) Activity/Diet/Wound Care/Special Instructions: Abdominal binder at all times except for showering. Do not remove dressing. May shower. No bath tub soaks. No lifting over 4 pounds in 4 weeks. Discharge Disposition: HOME SELF-CARE
== END 2016-07-15 15:07 | disposition home or self-care (01) ==
LOC: OR 09:30
PROVIDERS: ATTEND Surgery Plastic and Reconstructive Surgery
DX: K43.0 Incisional hernia with obstruction, without gangrene (principal); K40.90 Unilateral inguinal hernia, without obstruction or gangrene, not specified as recurrent; K66.0 Peritoneal adhesions (postprocedural) (postinfection); Z98.84 Bariatric surgery status; G89.4 Chronic pain syndrome; G43.909 Migraine, unspecified, not intractable, without status migrainosus; E66.01 Morbid (severe) obesity due to excess calories; Z68.41 Body mass index [BMI] 40.0-44.9, adult; F41.9 Anxiety disorder, unspecified; I11.9 Hypertensive heart disease without heart failure; I51.7 Cardiomegaly; F17.200 Nicotine dependence, unspecified, uncomplicated; Z79.891 Long term (current) use of opiate analgesic; Z79.899 Other long term (current) drug therapy; Z88.1 Allergy status to other antibiotic agents; Z88.5 Allergy status to narcotic agent; Z88.2 Allergy status to sulfonamides
CPT/HCPCS: 81025; 86900; 86901; 86850; 88302; 49657; 49650; 49329; C1781; J2250; J1644; J1100; J2710; J0690; J2405; J2001; J3010; J1885; J1170; J0131; J0330; C9290; J2704

== ENCOUNTER → 2016-07-17 | Outpatient (CLI) | payer OTHER ==
[2016-07-17 16:10] VITALS: BP 148/83; PULSE 48; TEMP 98; BMI 47.0
--- NOTE | 2016-08-20 23:39 | P.PN ---
Progress Note - Text DATE OF SERVICE: 07/17/2016 CHIEF COMPLAINT: History of gastric bypass. HISTORY OF PRESENT ILLNESS: Raiza Rodríguez is a 36-year-old female who is now status post robotic -assisted ventral hernia repair including extensive lysis of adhesions. She reports moderate pain, however, this is far improved from her previous hernia surgery. She reports some pain with her abdominal binder. No reports of fevers or chills. No reports of drainage from her wounds. For her 5 feet 1 inch, her ideal body weight is 131 pounds. Her highest weight was 417 pounds. Today she comes in weighing 249 pounds. She has maintained 160 pounds weight loss lifetime. Percent excess weight loss of 59%. She has gained approximately 8 pounds since her last visit a month ago. Body mass index is reduced from 79 down to 47.1. Total BMI point reduction is 31.9. PHYSICAL EXAM: VITAL SIGNS: 98.0, 48, 148/83; 5 feet 1 inch, 249 pounds. Body mass is 47.1. ABDOMEN: All incisions clean, dry, and intact with Dermabond. No signs of cellulitis or infection. Dressing along the umbilicus discontinued. HEENT: No scleral icterus. Extraocular movements grossly intact. Moist buccal mucosa. NECK: Supple without lymphadenopathy. CHEST: Unlabored respirations with equal bilateral excursions. CARDIOVASCULAR: Regular rate and rhythm. MUSCULOSKELETAL: No clubbing, cyanosis, or edema. NEURO: No focal or lateralizing signs. PSYCH: Appropriate affect. Alert and oriented to person, place, and time. ASSESSMENT: 1. Morbid obesity due to excess calories. 2. Body mass index reduced from 79 down to 47.1. 3. Status post incisional hernia repair. 4. Status post massive weight loss 168 pounds. PLAN: 1. She has request for additional pain medications, which is written on her behalf. 2. She will wear abdominal binder at all times. 3. Will need at minimum 4 weeks of complete recovery including no lifting over 4 pounds for 4 weeks. 4. Follow-up in one week.
== END | disposition home or self-care (01) ==
LOC: BARWHC3 13:57
PROVIDERS: ATTEND Surgery Plastic and Reconstructive Surgery
DX: Z01.818 Encounter for other preprocedural examination (principal)
CPT/HCPCS: 99211

== ENCOUNTER → 2016-07-24 | Outpatient (CLI) | payer OTHER ==
[2016-07-24 15:49] VITALS: BP 171/97; PULSE 66; TEMP 98.2; BMI 45.5
--- NOTE | 2016-08-29 03:03 | P.PN ---
Progress Note - Text DATE OF SERVICE: 07/24/2016 CHIEF COMPLAINT: Status post ventral hernia repair. HISTORY OF PRESENT ILLNESS: Raiza Rodríguez is a 36-year-old female status post robotic assisted ventral hernia repair on 07/15/2016. She is now 9 days postop. Her pain has improved. Incidentally, she is doing extremely well, already having weight loss of at least 8 pounds in one week. Her initial body mass index was 79 as she had weighed as much as 417 pounds for a 5-foot, 1-inch frame. Her ideal body weight is 131 pounds. Today she comes in weighing 240 pounds. She has lost a lifetime of 177 pounds. Percent excess weight loss is 52%. Body mass index reduced to 45.5. Total BMI point reduction is a 33.5. She is still 109 pounds overweight. PHYSICAL EXAM: VITAL SIGNS: 98.2, 56, 171/97, 12, 5 feet 1 inch, 240 pounds. Body mass index of 45.5. ABDOMEN: Soft, nontender, nondistended. No palpable or recurrent incisional hernia. No signs of infection or cellulitis. HEENT: No scleral icterus. Extraocular movements grossly intact. Moist buccal mucosa. NECK: Supple without lymphadenopathy. CHEST: Unlabored respirations with equal bilateral excursions. CARDIOVASCULAR: Regular rate and rhythm. MUSCULOSKELETAL: No clubbing, cyanosis, or edema. NEURO: No focal or lateralizing signs. PSYCH: Appropriate affect. Alert and oriented to person, place, and time. ASSESSMENT: 1. History of morbid obesity due to excess calories. 2. Body mass index reduced from 79 down to 45.5. 3. Status post massive weight loss of 177 pounds. 4. Status post repair of ventral incisional hernia. PLAN: 1. She will continue to wear abdominal binder. 2. At minimum recovery of 4 weeks is advised. 3. I have asked her to followup sooner should she have any further problems. 4. Additional pain medications is dispensed.
== END | disposition home or self-care (01) ==
LOC: BARWHC3 14:41
PROVIDERS: ATTEND Surgery Plastic and Reconstructive Surgery
DX: Z48.815 Encounter for surgical aftercare following surgery on the digestive system (principal); E66.01 Morbid (severe) obesity due to excess calories; Z68.42 Body mass index [BMI] 45.0-49.9, adult
CPT/HCPCS: 99211

== ENCOUNTER → 2016-09-11 | Outpatient (CLI) | payer OTHER ==
[2016-09-11 16:11] VITALS: BP 176/93; PULSE 82; RESP 16; TEMP 98.3; BMI 44.9
--- NOTE | 2016-11-06 04:07 | P.PN ---
Progress Note - Text DATE OF SERVICE: 09/11/2016. CHIEF COMPLAINT: Previous history of ventral hernia. HISTORY OF PRESENT ILLNESS: Raiza Rodríguez is a 36-year-old female who is status post repair of a ventral hernia on 07/15/2016. She is now 2 months out. She presents actually now with chronic pain. She is also seeking additional pain medication. In fact, since her last evaluation she was doing fairly well and now she reports her pain as recurred. At her height of 5 feet 1 inches, her ideal body weight is 131 pounds. Her highest weight was 417 pounds. Now she comes in weighing 238 pounds. She has maintained a 179 pounds weight loss. She has actually lost another 3 pounds in the last several months. Percent excess weight loss 68%. Body mass index reduced from 79 down to 45. Total BMI point reduction is 34.7. She is still 107 pounds overweight. PHYSICAL EXAM: VITAL SIGNS: 98.3, 82, 16, 176/93; 5 feet, 1 inch, 238 pounds. Body mass index of 45. ABDOMEN: Soft, minimal tenderness on the right upper quadrant. No peritonitis. HEENT: No scleral icterus. Extraocular movements grossly intact. Moist buccal mucosa. NECK: Supple without lymphadenopathy. CHEST: Unlabored respirations with equal bilateral excursions. CARDIOVASCULAR: Regular rate and rhythm. MUSCULOSKELETAL: No clubbing, cyanosis, or edema. NEURO: No focal or lateralizing signs. PSYCH: Appropriate affect. Alert and oriented to person, place, and time. ASSESSMENT: 1. History of chronic pain. 2. Morbid obesity due to excess calories. 3. Body mass index is reduced from 79 to 45. 4. Status post massive weight loss of 179 pounds. 5. Status post repair of ventral incisional hernia. PLAN: 1. Additional pain medications are written her behalf. 2. Recommend CT of the abdomen and pelvis without contrast for any recurrent hernia. 3. As she now presents with chronic pain, may also benefit from referral to pain management.
== END | disposition home or self-care (01) ==
LOC: BARWHC3 15:25
PROVIDERS: ATTEND Surgery Plastic and Reconstructive Surgery
DX: G89.29 Other chronic pain (principal); E66.01 Morbid (severe) obesity due to excess calories; Z68.42 Body mass index [BMI] 45.0-49.9, adult; Z98.890 Other specified postprocedural states
CPT/HCPCS: 99211

== ENCOUNTER → 2016-09-19 | Outpatient (CLI) | payer OTHER ==
--- NOTE | 2016-09-19 18:05 | CT ---
EXAMINATION TYPE: CT abdomen pelvis wo con DATE OF EXAM: 09/19/2016 5:31 PM COMPARISON: 06/07/2016 HISTORY: Right sided pain. Post OP hernia repair CT DLP: 1563.9 mGycm Automated exposure control for dose reduction was used. TECHNIQUE: Helical acquisition of images was performed from the lung bases through the pelvis. FINDINGS: Lung bases are clear. There is no pleural effusion. Liver spleen pancreas appear normal. There are clips from cholecystectomy. There is surgery at the [facility]. There is no adrenal mass. Kidneys have normal size and contour. There is no hydronephrosis. There is no sign of a renal calculus. There is no retroperitoneal adenopathy. There is no ascites. I see no in testinal wall thickening. There is suggestion of one or 2 small bowel loops in the left mid abdomen t hat are slightly dilated up to 3.5 cm. This is associated with some surgical clips. There is umbilica l hernia that contains fat. I see no pathologic fluid collection. I see no bony destructive process. Bladder distends smoothly. There is no sign of a pelvic mass. IMPRESSION: THERE IS SLIGHT DISTENTION OF SMALL BOWEL IN THE LEFT MID ABDOMEN OF UNCERTAIN SIGNIFICANCE. THIS COU LD RELATE TO BYPASS SURGERY. I DO NOT SEE EVIDENCE FOR MECHANICAL TYPE BOWEL OBSTRUCTION. NO SIGN OF ACUTE ABDOMEN AND PELVIS. THE DISTENDED SMALL BOWEL IS NEW COMPARED TO LAST EXAM.
== END | disposition home or self-care (01) ==
LOC: RADCTMAIN 17:16
PROVIDERS: ATTEND Surgery Plastic and Reconstructive Surgery
DX: K63.89 Other specified diseases of intestine (principal); R10.11 Right upper quadrant pain; R10.31 Right lower quadrant pain
CPT/HCPCS: 74176

== ENCOUNTER → 2016-10-30 | Outpatient (CLI) | payer OTHER ==
[2016-10-30 15:41] VITALS: BP 144/86; PULSE 97; RESP 16; TEMP 97.7; BMI 45.0
--- NOTE | 2016-11-13 15:23 | P.PN ---
Progress Note - Text DATE OF SERVICE: 10/30/2016 CHIEF COMPLAINT: History of gastric bypass. HISTORY OF PRESENT ILLNESS: Raiza Rodríguez is a 35-year-old female with history of Tricia-en-Y gastric bypass performed 7 years ago, 2009 at an outside institution. She then had a panniculectomy with resultant umbilical hernia. She is status post umbilical hernia repair on 07/15/2016. She has intermittent chronic abdominal pain. She had a CT of the abdomen and pelvis demonstrating no recurrence. She had been doing fairly well over the last 1-2 months. Now she comes in with recurrent complaints of abdominal pain. Her highest weight for her 5 feet 1 inch frame was 417 pounds. Today she comes in weighing 238 pounds. Her ideal body weight is 131 pounds. She is 107 pounds overweight. She has lost another 3 pounds in 4 months. Percent excess weight loss is still 63%. Body mass index is reduced from 79 down to 45.1. She presents for history of chronic abdominal pain. Separately, she reports chronic headaches. PAST MEDICAL HISTORY: 1. Super super morbid obesity. Prior body mass index of 79. 2. Active tobacco abuse. 3. Anxiety. 4. Hypertension. 5. Seasonal allergies. 6. Abdominal wall hernia. 7. Migraines. PAST SURGICAL HISTORY: 1. Status post Tricia-en-Y gastric bypass. 2. Panniculectomy. 3. . 4. Cholecystectomy. 5. Bilateral breast reduction. 6. Diagnostic laparoscopy with laparoscopic lysis of adhesions. 7. Laparoscopic ventral incisional hernia repair. 8. Laparoscopic umbilical hernia repair. MEDICATIONS: 1. Norvasc. 2. Propranolol. 3. Zofran. 4. Prilosec. 5. Claritin. 6. Prinivil. 7. [place]. 8. Folic acid. 9. Flonase. 10. Iron sulfate. 11. Fioricet. 12. Xanax. ALLERGIES: 1. BACTRIM. 2. HYDROMORPHONE. 3. TRIMETHOPRIM. SOCIAL HISTORY: Active tobacco use with alcohol use. Also has occasional marijuana use. FAMILY HISTORY: Pertinent for morbid obesity. Also has diabetes in her family. REVIEW OF SYSTEMS: CONSTITUTIONAL: Her highest weight for her 5 feet 1 inch frame was 417 pounds. Today she comes in weighing 238 pounds. Her ideal body weight is 131 pounds. She is 107 pounds overweight. She has lost another 3 pounds in 4 months. Percent excess weight loss is still 63%. Body mass index is reduced from 79 down to 45.1. GASTROINTESTINAL: No reports of dumping syndrome or gastroesophageal reflux disease. NEURO: History of chronic pain syndrome. His current migraines. CARDIOVASCULAR: Hypertension. No chest pain or palpitations. MUSCULOSKELETAL: Reports lower back pain including bilateral hip pain. HEENT: No troubles with vision or hearing. ENDOCRINE: No reports of diabetes or thyroid disorder. RESPIRATORY: Denies any dyspnea on exertion. GENITOURINARY: Denies any blood in urine. PSYCH: Denies any suicidal ideation or depression. PHYSICAL EXAM: VITAL SIGNS: 5 feet 1 inch, 238 pounds. Body mass index 45.1. Vital Signs Temp 97.7 F 10/30/16 15:38 Pulse 97 10/30/16 15:38 Resp 16 10/30/16 15:38 BP 144/86 10/30/16 15:38 Pulse Ox ABDOMEN: Soft. No palpable incisional hernias along the right upper quadrant epigastrium and umbilicus. Hypersensitive along the umbilicus. HEENT: No scleral icterus. Extraocular movements grossly intact. Moist buccal mucosa. NECK: Supple without lymphadenopathy. CHEST: Unlabored respirations with equal bilateral excursions. CARDIOVASCULAR: Regular rate and rhythm. MUSCULOSKELETAL: No clubbing, cyanosis, or edema. NEURO: No focal or lateralizing signs. PSYCH: Appropriate affect. Alert and oriented to person, place, and time. STUDIES: Recent CT of the abdomen and pelvis obtained 09/2016 was personally reviewed demonstrating mesh intact. No signs of obstruction or free air. ASSESSMENT: 1. History of chronic abdominal pain. 2. Incisional umbilical hernia, repaired. 3. History of Tricia-en-Y gastric bypass. 4. Status post massive weight loss of 179 pounds. 5. Chronic migraines. 6. Hypertensive heart disease with cardiomegaly. 7. History of chronic pain. PLAN: 1. Recommend referral to pain clinic as she has multiple chronic pain symptoms from her migraines and her abdomen. 2. At this time, may wear abdominal binder for comfort. 3. No additional surgical intervention advised. 4. Follow-up with the bariatric center at least yearly for history of gastric bypass.
== END ==
LOC: BARWHC3 15:30
PROVIDERS: ATTEND Surgery Plastic and Reconstructive Surgery
DX: Z09 Encounter for follow-up examination after completed treatment for conditions other than malignant neoplasm (principal); I11.9 Hypertensive heart disease without heart failure; G43.709 Chronic migraine without aura, not intractable, without status migrainosus; K43.2 Incisional hernia without obstruction or gangrene; I10 Essential (primary) hypertension; Z72.0 Tobacco use; F41.9 Anxiety disorder, unspecified; J30.2 Other seasonal allergic rhinitis; Z79.899 Other long term (current) drug therapy; Z88.2 Allergy status to sulfonamides; Z88.8 Allergy status to other drugs, medicaments and biological substances; Z98.84 Bariatric surgery status
CPT/HCPCS: 99211

== ENCOUNTER 2017-06-16 17:04 | Emergency (ER) | payer OTHER ==
[2017-06-16 18:47] VITALS: RESP 20; TEMP 98.1
[2017-06-16] MEDS ORDERED: SODIUM CHLORIDE 0.9% 500 ML IV STA (19:34)
[2017-06-16] MEDS ORDERED: KETOROLAC 30 MG/ML 1 ML VIAL IVP STA (19:37)
[2017-06-16 20:12] LABS: Anisocytosis Slight; Basophils % (A) 0 %; Eosinophils # (A) 0.2 k/uL (0-0.7); Eosinophils % (A) 2 %; HGB 13.1 gm/dL (11.4-16.0); Hypochromasia Moderate; Lymphocytes # (A) 2.2 k/uL (1.0-4.8); Lymphocytes % (A) 21 %; MCHC 30.5 g/dL (31.0-37.0); MCV 78.6 fL (80.0-100.0); Mean Platelet Volume 6.8; Microcytosis Slight; Monocytes # (A) 0.4 k/uL (0-1.0); Monocytes % (A) 4 %; Neutrophils # (A) 7.5 k/uL (1.3-7.7); Neutrophils % (A) 71 %; Platelet Count 363 k/uL (150-450); RBC 5.47 m/uL (3.80-5.40); WBC 10.5 k/uL (3.8-10.6)
--- NOTE | 2017-06-16 20:14 | ED ---
Skin/Abscess/FB HPI - General Chief complaint: Skin/Abscess/Foreign Body Stated complaint: Abcess in breast Time Seen by Provider: 06/16/17 19:19 Source: patient Mode of arrival: ambulatory Limitations: no limitations - History of Present Illness Initial comments: 36-year-old female patient presents to the emergency department today for complaints of left breast pain and tenderness. Patient states that for the last month she has been fighting an infection to the breast. She states 30 days ago she started to have some drainage from the left nipple, she states after that she started becoming very tender to the area. She states that she was evaluated by her primary care physician and given antibiotics. She states that she has completed 2 courses of antibiotics and the pain seems to be worsening. She states that she cannot even have clothing touching the breast without significant pain. She states it feels hot to touch as well. She is scheduled to have an ultrasound and mammogram however states that she could not wait due to the pain being so severe. She denies any fever or chills. She denies any nausea or vomiting. Denies any swelling in the axillary region. She has no history of breast issues and is not breast-feeding. Patient denies any recent rash, shortness breath, chest pain, abdominal pain, nausea, vomiting , diarrhea, constipation, back pain, numbness, tingling, dizziness, weakness, hematuria, dysuria, urinary urgency, urinary frequency, headache, visual changes , or any other complaints. - Related Data Home Medications Medication Instructions Recorded Confirmed amLODIPine [Norvasc] 10 mg PO QAM 03/26/14 06/16/17 ALPRAZolam [Xanax] 0.5 mg PO BID PRN 06/10/14 06/16/17 Loratadine [Claritin] 10 mg PO DAILY PRN 06/10/14 06/16/17 Lisinopril [Prinivil] 20 mg PO QAM 08/23/14 06/16/17 Butalbit/Acetamin/Caff/Codeine 1 - 2 cap PO Q4HR PRN 03/14/15 06/16/17 [Fioricet-Cod 43-429-04-30 Cap] Omeprazole [PriLOSEC] 40 mg PO AC-BRKFST 06/07/16 06/16/17 Propranolol HCl [Propranolol HCl 120 mg PO QAM 06/07/16 06/16/17 ER] HYDROcodone/APAP 7.5-325MG [[place] 1 tab PO Q4H PRN 06/16/17 06/16/17 7.5-325] Vortioxetine Hydrobromide 10 mg PO HS 06/16/17 06/16/17 [Trintellix] Previous Rx's Medication Instructions Recorded Fluticasone Propionate [Flonase 1 - 2 spray EA NOSTRIL DAILY 5 06/27/16 Allergy Relief] Days ml Ondansetron Odt [Zofran ODT] 4 mg PO Q8HR PRN #15 tab 06/27/16 Hydrocodone/Acetaminophen [[place] 1 tab PO Q6HR PRN #15 tab 06/16/17 5-325] Ibuprofen [Motrin] 600 mg PO Q8HR PRN #30 tab 06/16/17 Allergies Allergy/AdvReac Type Severity Reaction Status Date / Time sulfamethoxazole Allergy Unknown Verified 06/16/17 19:48 [From Bactrim] Childhood trimethoprim [From Bactrim] Allergy Unknown Verified 06/16/17 19:48 Childhood Review of Systems ROS Statement: Those systems with pertinent positive or pertinent negative responses have been documented in the HPI. ROS Other: All systems not noted in ROS Statement are negative. Past Medical History Past Medical History: Hypertension, Pneumonia Additional Past Medical History / Comment(s): ULCER LONG AGO. MIGRAINES, ABDOMINAL PAIN. hernia History of Any Multi-Drug Resistant Organisms: None Reported Past Surgical History: Bariatric Surgery, Breast Surgery, Section, Cholecystectomy, Hernia Repair, Tonsillectomy Additional Past Surgical History / Comment(s): [facility] 2008. BREAST REDUCTION. TUMMY TUCK. [employer] Hernia repair 08/22/14 Past Anesthesia/Blood Transfusion Reactions: No Reported Reaction, Family History of Problems w/ Anesthesia Additional Past Anesthesia/Blood Transfusion Reaction / Comment(s): MOTHER AWAKENS DURING SURGERY. Past Psychological History: Anxiety, Panic Disorder Smoking Status: Current every day smoker Past Alcohol Use History: Occasional Past Drug Use History: Marijuana - Past Family History Mother Family Medical History: Hypertension Father Family Medical History: Hypertension Brother(s) Family Medical History: No Reported History General Exam Limitations: no limitations General appearance: alert, in no apparent distress, other Eye exam: Present: normal appearance (Physical well-developed, well-nourished adult female patient in no acute distress. Vital signs upon presentation are temperature 98.1F, pulse 83, respirations 20, blood pressure 157/101, pulse ox 99% on room air.), PERRL, EOMI. Absent: scleral icterus, conjunctival injection , periorbital swelling ENT exam: Present: normal exam, normal oropharynx, mucous membranes moist Respiratory exam: Present: normal lung sounds bilaterally. Absent: respiratory distress, wheezes, rales, rhonchi, stridor Cardiovascular Exam: Present: regular rate, normal rhythm, normal heart sounds. Absent: systolic murmur, diastolic murmur, rubs, gallop, clicks GI/Abdominal exam: Present: soft, normal bowel sounds. Absent: distended, tenderness, guarding, rebound, rigid Neurological exam: Present: alert, oriented X3, CN II-XII intact Psychiatric exam: Present: normal affect, normal mood Skin exam: Present: warm, dry, intact, normal color. Absent: rash Expanded 1 - Left breast erythema, induration, tenderness including and surrounding the left nipple. No evidence of nipple drainage at this time. Course Vital Signs 06/16/17 06/16/17 18:44 21:18 Temperature 98.1 F 98.1 F Pulse Rate 83 78 Respiratory 20 20 Rate Blood Pressure 157/101 151/88 O2 Sat by Pulse 99 100 Oximetry Medical Decision Making - Medical Decision Making 36-year-old female patient presented to the emergency department today for complaints of left breast pain. Physical examination did reveal erythema, and tenderness to the left nipple and surrounding areas. No fluctuant areas are identified. Labs are obtained, white blood cell count was within normal limits. Patient is afebrile with stable vital signs. Ultrasound showed no suspicious areas of abscess. Follow-up mammography is recommended. Patient does have an appointment for a mammogram on 06/23/2017. She'll be discharged home with pain management and instructed to keep this mammography appointment. She is instructed to return here immediately for any other new, worsening, or concerning symptoms per to verbalizes understanding and agrees with this plan. - Lab Data Result diagrams: 06/16/17 19:54 06/16/17 19:54 Lab Results 06/16/17 06/16/17 Range/Units 19:54 19:54 WBC 10.5 (3.8-10.6) k/uL RBC 5.47 H (3.80-5.40) m/uL Hgb 13.1 (11.4-16.0) gm/dL Hct 43.0 (34.0-46.0) % MCV 78.6 L (80.0-100.0) fL MCH 24.0 L (25.0-35.0) pg MCHC 30.5 L (31.0-37.0) g/dL RDW 18.0 H (11.5-15.5) % Plt Count 363 (150-450) k/uL Neutrophils % 71 % Lymphocytes % 21 % Monocytes % 4 % Eosinophils % 2 % Basophils % 0 % Neutrophils # 7.5 (1.3-7.7) k/uL Lymphocytes # 2.2 (1.0-4.8) k/uL Monocytes # 0.4 (0-1.0) k/uL Eosinophils # 0.2 (0-0.7) k/uL Basophils # 0.0 (0-0.2) k/uL Hypochromasia Moderate Anisocytosis Slight Microcytosis Slight Sodium 144 (137-145) mmol/L Potassium 4.0 (3.5-5.1) mmol/L Chloride 104 (98-107) mmol/L Carbon Dioxide 26 (22-30) mmol/L Anion Gap 14 mmol/L BUN 12 (7-17) mg/dL Creatinine 0.70 (0.52-1.04) mg/dL Est GFR (MDRD) Af Amer >60 (>60 ml/min/1.73 sqM) Est GFR (MDRD) Non-Af >60 (>60 ml/min/1.73 sqM) Glucose 98 (74-99) mg/dL Calcium 9.8 (8.4-10.2) mg/dL Total Bilirubin 0.6 (0.2-1.3) mg/dL AST 19 (14-36) U/L ALT 19 (9-52) U/L Alkaline Phosphatase 82 (38-126) U/L Total Protein 8.2 (6.3-8.2) g/dL Albumin 4.6 (3.5-5.0) g/dL - Radiology Data Radiology results: report reviewed, image reviewed Ultrasound of the left breast was obtained, the left breast was scanned at the 6 :00, 9:00, and 12:00 positions in the patient's area of the left breast pain as well as within the retroareolar region. Heterogenous breast tissue is visualized. Recommendation is for left mammography. There is no focal abscess or suspicious sonographic finding within the area of pain. Disposition Clinical Impression: Breast pain, left Disposition: HOME SELF-CARE Condition: Good Instructions: Mastitis (ED) Additional Instructions: Follow-up with her primary care physician for recheck in 1-2 days. Take pain medications as directed. Keep your appointment for your mammogram on the . Return here immediately for any new, worsening, or concerning symptoms. Prescriptions: Hydrocodone/Acetaminophen [[place] 5-325] 1 tab PO Q6HR PRN #15 tab PRN Reason: Pain Ibuprofen [Motrin] 600 mg PO Q8HR PRN #30 tab PRN Reason: Pain Referrals: Pedro Luis Mandel MD [Primary Care Provider] - 1-2 days Time of Disposition: 22:06
[2017-06-16 20:21] LABS: ALT 19 U/L (9-52); AST 19 U/L (14-36); Albumin 4.6 g/dL (3.5-5.0); Alkaline Phosphatase 82 U/L (38-126); Anion Gap 14 mmol/L; Blood Urea Nitrogen 12 mg/dL (7-17); Calcium 9.8 mg/dL (8.4-10.2); Carbon Dioxide 26 mmol/L (22-30); Chloride 104 mmol/L (98-107); Glucose 98 mg/dL (74-99); Sodium 144 mmol/L (137-145); Total Bilirubin 0.6 mg/dL (0.2-1.3); Total Protein 8.2 g/dL (6.3-8.2)
[2017-06-16 21:19] VITALS: BP 151/88; PULSE 78
--- NOTE | 2017-06-16 21:25 | USB ---
EXAMINATION TYPE: US breast limited LT DATE OF EXAM: 06/16/2017 COMPARISON: NONE CLINICAL HISTORY: Pain. Left breast pain. The left breast was scanned at the 6:00, 9:00, and 12:00 positions in the patient's area left breast pain as well as within the retroareolar region. Heterogenous breast tissue visualized. Recommend to be seen for full breast work up. Patient states s he has appointment on 06/23/2017 at [facility] for mammogram and ultrasound. IMPRESSION: BI-RADS 0-incomplete exam. Diagnostic left mammography is recommended for further workup in a patient with left breast pain. However, no focal abscess or suspicious sonographic finding is s een within the area of pain scanned within the left breast.
== END 2017-06-16 22:29 | disposition home or self-care (01) ==
LOC: EC 17:04
DX: N64.4 Mastodynia (principal); I10 Essential (primary) hypertension; F41.0 Panic disorder [episodic paroxysmal anxiety]; F17.200 Nicotine dependence, unspecified, uncomplicated; Z79.899 Other long term (current) drug therapy; Z88.2 Allergy status to sulfonamides
CPT/HCPCS: 36415; 80053; 85025; 87040; 76642; 99283; 96374; J1885

== ENCOUNTER → 2017-06-23 | Outpatient (CLI) | payer OTHER ==
--- NOTE | 2017-06-23 09:40 | MM ---
Reason for exam: clinical finding. History: Patient history of other cancer. Family history of breast cancer in maternal grandmother at age 40. Took hormonal contraceptives for 11 years beginning at age 21. Physical Findings: Nurse Summary: nodule in the left breast at the nipple (nurse jennifer). MG 3D Diag Mammo W/Cad FELISA Bilateral CC, MLO, and XCCL view(s) were taken. There are scattered fibroglandular densities. Large round 6cm left subareolar mass. Trabecular and skin thickening. These results were verbally communicated with the patient and result sheet given to the patient on 06/23/17. ASSESSMENT: Incomplete: need additional imaging evaluation, BI-RAD 0 RECOMMENDATION: Ultrasound of the left breast.
--- NOTE | 2017-06-23 09:43 | USB ---
Reason for exam: additional evaluation requested from abnormal screening. History: Patient history of other cancer. Family history of breast cancer in maternal grandmother at age 40. Took hormonal contraceptives for 11 years beginning at age 21. US Breast LT Left breast ultrasound includes all four quadrants, the retroareolar region and axilla. Finding demonstrates a 5.6 x 2.5 x 5.5cm lesion at the nipple, heterogeneous, hypoechoic collection with prominent peripheral vascularity. Associated skin thickening. Difficult to assess the presence of an underlying mass but findings are compatible with breast infection and abscess. These results were verbally communicated with the patient and result sheet given to the patient on 06/23/17. ASSESSMENT: Suspicious, BI-RAD 4 RECOMMENDATION: 1. Surgical consultation of the left breast for management of infection and abscess. 2. Followup ultrasound left breast in [address] Mandel with mammographic findings and has scheduled an appointment for the patient for 06/23/17 at 10:[address] Moreno. PRELIMINARY REPORT CALLED AND FAXED TO DR. MORENO ON 06/23/17. KASSI
== END | disposition home or self-care (01) ==
LOC: RADMAMWWP 08:05
PROVIDERS: ATTEND Internal Medicine
DX: R92.8 Other abnormal and inconclusive findings on diagnostic imaging of breast (principal); N63.20 Unspecified lump in the left breast, unspecified quadrant
CPT/HCPCS: 77066; 76641; G0279

== ENCOUNTER → 2017-11-13 | Outpatient (CLI) | payer OTHER ==
--- NOTE | 2017-11-13 12:57 | US ---
EXAMINATION TYPE: US pelvic complete DATE OF EXAM: 11/13/2017 COMPARISON: Correlation CT 09/19/2016 and ultrasound 03/11/2016 CLINICAL HISTORY: 37-year-old female N94.6 Dysmenorrhea. Heavy painful irregular cycles for a couple years, patient on depo shot, patient unsure of last regular cycle, 2, para 1, miscarriage 1, history of TECHNIQUE: Transabdominal sonographic images of the pelvis were acquired. Transvaginal sonographic images were medically necessary to better assess the following anatomy: endometrium and ovaries Date of LMP: Patient unsure FINDINGS: EXAM MEASUREMENTS: Uterus: 7.2 x 2.7 x 3.1 cm Endometrial Stripe: Visualized with difficulty. A small portion along the lower uterine segment is se en and estimated at 4 mm. 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 1. Uterus: heterogeneous, limited by overlying bowel gas 2. Endometrium: visualized portions appear wnl, limited by overlying bowel gas 3. Right Ovary: not seen due to overlying bowel gas 4. Left Ovary: not seen due to overlying bowel gas 5. Bilateral Adnexa: wnl 6. Posterior cul-de-sac: wnl IMPRESSION: 1. Technically difficult and suboptimal study. 2. Only a small portion of the endometrial stripe along the lower uterine segment is seen and is morgan mated at 4 mm. The remainder the endometrium is not assessed. 3. Neither ovary could be visualized.
== END | disposition home or self-care (01) ==
LOC: RADUSWWP 12:01
PROVIDERS: ATTEND Internal Medicine
DX: N94.6 Dysmenorrhea, unspecified (principal); Z88.1 Allergy status to other antibiotic agents; Z88.2 Allergy status to sulfonamides; Z88.8 Allergy status to other drugs, medicaments and biological substances
CPT/HCPCS: 76830; 76856

== ENCOUNTER → 2018-08-12 | Outpatient (CLI) | payer OTHER ==
--- NOTE | 2018-08-12 15:44 | US ---
EXAMINATION TYPE: US pelvis complete transvag DATE OF EXAM: 08/12/2018 COMPARISON: US 11/13/2017 CLINICAL HISTORY: N92.1 Excessive And Frequent Menstruation. States her cycles last 4-6 weeks. Diffic ult and limited exam due to patient body habitus TECHNIQUE: . Transabdominal sonographic images of the pelvis were acquired. Transvaginal sonographi c images were medically necessary to better assess the following anatomy: Uterus Date of LMP: 07/10/2018 EXAM MEASUREMENTS: Uterus: 7.2 x 3.3 x 2.4 cm Endometrial Stripe: 0.4 cm Right Ovary: Not visualized Left Ovary: 3.2 x 1.9 x 2.6 cm 1. Uterus: Anteverted wnl 2. Endometrium: wnl 3. Right Ovary: Obscured by overlying bowel gas 4. Left Ovary: wnl 5. Bilateral Adnexa: wnl 6. Posterior cul-de-sac: wnl IMPRESSION: No abnormality as visualized. Note is made the right ovary was obscured by bowel gas.
== END ==
LOC: RADUSWWP 14:34
PROVIDERS: ATTEND Internal Medicine
DX: N92.1 Excessive and frequent menstruation with irregular cycle (principal); Z88.2 Allergy status to sulfonamides; Z88.1 Allergy status to other antibiotic agents; Z88.8 Allergy status to other drugs, medicaments and biological substances
CPT/HCPCS: 76830; 76856

== ENCOUNTER → 2018-09-23 | Outpatient (CLI) | payer OTHER ==
[2018-09-24 02:09] LABS: Hepatitis A Antibody IgM Non-Reactive (Non-Reactive); Hepatitis B Core IgM Non-Reactive (Non-Reactive)
[2018-09-24 09:02] LABS: HIV 1 AB Non-Reactive (Non-Reactive); HIV AB P24 Non-Reactive (Non-Reactive); HIV P24 AG Non-Reactive (Non-Reactive)
[2018-09-24 14:30] LABS: C. trachomatis,PCR Negative (Neg,Equiv); Chlamydia trachomatis Source Urine; N. gonorrhoeae,PCR Negative (Neg,Equiv); Neisseria Source Urine
== END | disposition home or self-care (01) ==
LOC: LABWHC1 14:56
PROVIDERS: ATTEND Nurse Practitioner Adult Health
DX: Z11.3 Encounter for screening for infections with a predominantly sexual mode of transmission (principal)
CPT/HCPCS: 36415; 80074; 86780; 87390; 87491; 87591; 87661

== ENCOUNTER 2018-09-25 08:33 | Observation (INO) | payer OTHER ==
[2018-09-25] MEDS ORDERED: MORPHINE SULFATE 4 MG/ML SYRINGE IVP STA (09:03)
[2018-09-25] MEDS ORDERED: SODIUM CHLORIDE 0.9% 1,000 ML IV STA (09:03)
[2018-09-25] MEDS ORDERED: ONDANSETRON 4 MG/2 ML VIAL IVP STA (09:03)
--- NOTE | 2018-09-25 09:03 | ED ---
General Adult HPI - General Chief complaint: Abdominal Pain Stated complaint: Abd pain, vomiting Time Seen by Provider: 09/25/18 08:45 Source: patient, RN notes reviewed Limitations: no limitations - History of Present Illness Initial comments: 38-year-old female with a past medical history hypertension, pneumonia, migraines, abdominal pain, hernia presents to the emergency department for a chief complaint of abdominal pain x 2 days. Patient states that about 4 days ago she began experiencing vomiting and diarrhea. States that the diarrhea only lasted for one day but that the vomiting has persisted. States that yesterday she developed a sharp pain to the right of her umbilicus. Denies any alleviating or aggravating factors. States that this area feels "harris" than normal. Patient does admit to having a hernia repair previously by Dr Yeh without any complications. Patient has no other complaints at this time including shortness of breath, chest pain, headache, or visual changes. - Related Data Home Medications Medication Instructions Recorded Confirmed amLODIPine [Norvasc] 10 mg PO QAM 03/26/14 09/25/18 ALPRAZolam [Xanax] 0.5 mg PO BID PRN 06/10/14 09/25/18 Butalbit/Acetamin/Caff/Codeine 1 - 2 cap PO Q4HR PRN 03/14/15 09/25/18 [Fioricet-Cod 75-250-13-30 Cap] Propranolol HCl [Propranolol HCl 120 mg PO QAM 06/07/16 09/25/18 ER] HYDROcodone/APAP 7.5-325MG [[place] 1 tab PO Q4H PRN 06/16/17 09/25/18 7.5-325] Vortioxetine Hydrobromide 10 mg PO HS 06/16/17 09/25/18 [Trintellix] Cetirizine HCl [Zyrtec] 10 mg PO DAILY 09/25/18 09/25/18 Fluticasone Propionate [Flonase 1 - 2 spray EA NOSTRIL DAILY PRN 09/25/18 09/25/18 Allergy Relief] Lisinopril 40 mg PO DAILY 09/25/18 09/25/18 Pantoprazole [Protonix] 40 mg PO DAILY 09/25/18 09/25/18 busPIRone HCl [Buspar] 5 mg PO BID 09/25/18 09/25/18 Previous Rx's Medication Instructions Recorded Ondansetron Odt [Zofran ODT] 4 mg PO Q8HR PRN #15 tab 06/27/16 Allergies Allergy/AdvReac Type Severity Reaction Status Date / Time sulfamethoxazole Allergy Unknown Verified 09/25/18 09:11 [From Bactrim] Childhood trimethoprim [From Bactrim] Allergy Unknown Verified 09/25/18 09:11 Childhood sumatriptan [From Imitrex] AdvReac Rapid Verified 09/25/18 09:11 Heart Rate Review of Systems ROS Statement: Those systems with pertinent positive or pertinent negative responses have been documented in the HPI. ROS Other: All systems not noted in ROS Statement are negative. Past Medical History Past Medical History: Hypertension, Pneumonia Additional Past Medical History / Comment(s): ULCER LONG AGO. MIGRAINES, AB DOMINAL PAIN. hernia History of Any Multi-Drug Resistant Organisms: None Reported Past Surgical History: Bariatric Surgery, Breast Surgery, Section, Cholecystectomy, Hernia Repair, Tonsillectomy Additional Past Surgical History / Comment(s): CONCEPCI[place]N-N-Y 2008. BREAST REDUCTION. TUMMY TUCK. INC[employer] Hernia repair 08/22/14 Past Anesthesia/Blood Transfusion Reactions: No Reported Reaction, Family History of Problems w/ Anesthesia Additional Past Anesthesia/Blood Transfusion Reaction / Comment(s): MOTHER AWAKENS DURING SURGERY. Past Psychological History: Anxiety, Panic Disorder Smoking Status: Current every day smoker Past Alcohol Use History: Occasional Past Drug Use History: Marijuana - Past Family History Mother Family Medical History: Hypertension Father Family Medical History: Hypertension Brother(s) Family Medical History: No Reported History General Exam Limitations: no limitations General appearance: alert, in no apparent distress Head exam: Present: atraumatic, normocephalic, normal inspection Eye exam: Present: normal appearance, PERRL, EOMI. Absent: scleral icterus, conjunctival injection, periorbital swelling ENT exam: Present: normal exam, mucous membranes moist Neck exam: Present: normal inspection. Absent: tenderness, meningismus, lymphadenopathy Respiratory exam: Present: normal lung sounds bilaterally. Absent: respiratory distress, wheezes, rales, rhonchi, stridor Cardiovascular Exam: Present: regular rate, normal rhythm, normal heart sounds. Absent: systolic murmur, diastolic murmur, rubs, gallop, clicks GI/Abdominal exam: Present: soft, tenderness (Tenderness noted to the right lower quadrant as well as umbilical area), normal bowel sounds, hernia (Possible hernia palpated to the right of the umbilicus). Absent: distended, guarding, rebound, rigid Neurological exam: Present: alert, oriented X3, CN II-XII intact Psychiatric exam: Present: normal affect, normal mood Course Vital Signs 09/25/18 09/25/18 09/25/18 08:34 10:27 11:30 Temperature 98.2 F Pulse Rate 92 78 74 Respiratory 18 19 18 Rate Blood Pressure 120/83 135/88 115/69 O2 Sat by Pulse 97 100 99 Oximetry Medical Decision Making - Medical Decision Making 38 year old female with a past medical history of abdominal pain and hernia repair presents to the emergency department for a chief complaint of abdominal pain in the right lower quadrant and umbilical area. States that this started with vomiting 4 days ago and diarrhea. Diarrhea stopped after one day but vomiting persisted. Abdominal pain then started 2 days ago. States the area to the right side of the umbilicus feels full. On exam patient does have possible hernia noted to the right side of the umbilicus which is tender to palpation without erythema. There is also some right lower quadrant tenderness. CBC is unremarkable, white count is 8. CMP unremarkable. Lactic acid 1.6. Urine negative. There are multiple findings noted on CT abdomen and pelvis with IV contrast. There are a few air-fluid levels suggested of ileus. There is a poss ible punctate appendicolith versus inspissated succus within the distal appendix but no sign of acute appendicitis. There is also a left hepatic lobe lesion that appears new as well as a right renal cysts and other renal lesions too small to characterize. Mediastinal lymph nodes noted as well as submucosal fat deposition which could be secondary to chronic colitis although patient does not states she has a history of this. Patient reexamined, still having significant tenderness noted near the umbilicus. Dr. Oropeza also visualized patient. At this time with patient's history of hernia repair as well as tenderness over the site she will be admitted for further management and surgical consultation. - Lab Data Result diagrams: 09/25/18 08:58 09/25/18 08:58 Lab Results 09/25/18 09/25/18 09/25/18 Range/Units 08:58 08:58 08:58 WBC 8.6 (3.8-10.6) k/uL RBC 5.04 (3.80-5.40) m/uL Hgb 13.5 (11.4-16.0) gm/dL Hct 43.2 (34.0-46.0) % MCV 85.6 (80.0-100.0) fL MCH 26.8 (25.0-35.0) pg MCHC 31.3 (31.0-37.0) g/dL RDW 15.5 (11.5-15.5) % Plt Count 391 (150-450) k/uL Neutrophils % 63 % Lymphocytes % 25 % Monocytes % 6 % Eosinophils % 3 % Basophils % 1 % Neutrophils # 5.5 (1.3-7.7) k/uL Lymphocytes # 2.2 (1.0-4.8) k/uL Monocytes # 0.5 (0-1.0) k/uL Eosinophils # 0.3 (0-0.7) k/uL Basophils # 0.1 (0-0.2) k/uL Sodium 141 (137-145) mmol/L Potassium 4.7 (3.5-5.1) mmol/L Chloride 105 (98-107) mmol/L Carbon Dioxide 25 (22-30) mmol/L Anion Gap 11 mmol/L BUN 27 H (7-17) mg/dL Creatinine 0.95 (0.52-1.04) mg/dL Est GFR (CKD-EPI)AfAm 88 (>60 ml/min/1.73 sqM) Est GFR (CKD-EPI)NonAf 76 (>60 ml/min/1.73 sqM) Glucose 104 H (74-99) mg/dL Plasma Lactic Acid Gene (0.7-2.0) mmol/L Calcium 9.9 (8.4-10.2) mg/dL Total Bilirubin 0.4 (0.2-1.3) mg/dL AST 33 (14-36) U/L ALT 31 (9-52) U/L Alkaline Phosphatase 53 (38-126) U/L Total Protein 8.4 H (6.3-8.2) g/dL Albumin 5.0 (3.5-5.0) g/dL Amylase 112 H (30-110) U/L Lipase 203 (23-300) U/L Urine Color Urine Appearance (Clear) Urine pH (5.0-8.0) Ur Specific [place] (1.001-1.035) Urine Protein (Negative) Urine Glucose (UA) (Negative) Urine Ketones (Negative) Urine Blood (Negative) Urine Nitrite (Negative) Urine Bilirubin (Negative) Urine Urobilinogen (<2.0) mg/dL Ur Leukocyte Esterase (Negative) Urine RBC (0-5) /hpf Urine WBC (0-5) /hpf Ur Squamous Epith Cells (0-4) /hpf Urine Bacteria (None) /hpf Hyaline Casts (0-2) /lpf Urine Mucus (None) /hpf Urine HCG, Qual Not Detected (Not Detectd) 09/25/18 09/25/18 Range/Units 08:58 08:58 WBC (3.8-10.6) k/uL RBC (3.80-5.40) m/uL Hgb (11.4-16.0) gm/dL Hct (34.0-46.0) % MCV (80.0-100.0) fL MCH (25.0-35.0) pg MCHC (31.0-37.0) g/dL RDW (11.5-15.5) % Plt Count (150-450) k/uL Neutrophils % % Lymphocytes % % Monocytes % % Eosinophils % % Basophils % % Neutrophils # (1.3-7.7) k/uL Lymphocytes # (1.0-4.8) k/uL Monocytes # (0-1.0) k/uL Eosinophils # (0-0.7) k/uL Basophils # (0-0.2) k/uL Sodium (137-145) mmol/L Potassium (3.5-5.1) mmol/L Chloride (98-107) mmol/L Carbon Dioxide (22-30) mmol/L Anion Gap mmol/L BUN (7-17) mg/dL Creatinine (0.52-1.04) mg/dL Est GFR (CKD-EPI)AfAm (>60 ml/min/1.73 sqM) Est GFR (CKD-EPI)NonAf (>60 ml/min/1.73 sqM) Glucose (74-99) mg/dL Plasma Lactic Acid Gene 1.6 (0.7-2.0) mmol/L Calcium (8.4-10.2) mg/dL Total Bilirubin (0.2-1.3) mg/dL AST (14-36) U/L ALT (9-52) U/L Alkaline Phosphatase (38-126) U/L Total Protein (6.3-8.2) g/dL Albumin (3.5-5.0) g/dL Amylase (30-110) U/L Lipase (23-300) U/L Urine Color Yellow Urine Appearance Cloudy H (Clear) Urine pH 6.0 (5.0-8.0) Ur Specific [place] 1.023 (1.001-1.035) Urine Protein 1+ H (Negative) Urine Glucose (UA) Negative (Negative) Urine Ketones Negative (Negative) Urine Blood Negative (Negative) Urine Nitrite Negative (Negative) Urine Bilirubin Negative (Negative) Urine Urobilinogen <2.0 (<2.0) mg/dL Ur Leukocyte Esterase Negative (Negative) Urine RBC <1 (0-5) /hpf Urine WBC 2 (0-5) /hpf Ur Squamous Epith Cells 8 H (0-4) /hpf Urine Bacteria Rare H (None) /hpf Hyaline Casts 12 H (0-2) /lpf Urine Mucus Few H (None) /hpf Urine HCG, Qual (Not Detectd) Disposition Clinical Impression: Abdominal pain, Liver lesion, Renal cyst, History of hernia repair Disposition: ADMITTED IP TO THIS HOSP Condition: Fair Is patient prescribed a controlled substance at d/c from ED?: No Time of Disposition: 12:37
[2018-09-25 09:28] LABS: Basophils # (A) 0.1 k/uL (0-0.2); Basophils % (A) 1 %; Eosinophils # (A) 0.3 k/uL (0-0.7); Eosinophils % (A) 3 %; HCT 43.2 % (34.0-46.0); HGB 13.5 gm/dL (11.4-16.0); Lymphocytes # (A) 2.2 k/uL (1.0-4.8); Lymphocytes % (A) 25 %; MCH 26.8 pg (25.0-35.0); MCHC 31.3 g/dL (31.0-37.0); MCV 85.6 fL (80.0-100.0); Monocytes # (A) 0.5 k/uL (0-1.0); Monocytes % (A) 6 %; Neutrophils # (A) 5.5 k/uL (1.3-7.7); Neutrophils % (A) 63 %; Platelet Count 391 k/uL (150-450); RBC 5.04 m/uL (3.80-5.40); RDW 15.5 % (11.5-15.5); WBC 8.6 k/uL (3.8-10.6)
[2018-09-25 09:45] LABS: Appearance,Urine Cloudy (Clear); Bacteria,Urine Rare /hpf; Bilirubin,Urine Negative (Negative); Blood,Urine Negative (Negative); Color,Urine Yellow; Glucose,Urine (UA) Negative (Negative); Hyaline Casts,Urine 12 /lpf (0-2); Ketones,Urine Negative (Negative); Leukocyte Esterase,Urine Negative (Negative); Mucus,Urine Few /hpf; Nitrite,Urine Negative (Negative); Protein,Urine 1+ (Negative); RBC,Urine <1 /hpf (0-5); Specific Gravity,Urine 1.023 (1.001-1.035); Squamous Epithelial Cell,Urine 8 /hpf (0-4); Urobilinogen,Urine <2.0 mg/dL (<2.0); WBC,Urine 2 /hpf (0-5)
[2018-09-25 09:48] LABS: Calcium 9.9 mg/dL (8.4-10.2); Potassium 4.7 mmol/L (3.5-5.1); Total Bilirubin 0.4 mg/dL (0.2-1.3); Total Protein 8.4 g/dL (6.3-8.2)
--- NOTE | 2018-09-25 10:35 | CT ---
EXAMINATION TYPE: CT abdomen pelvis w con DATE OF EXAM: 09/25/2018 HISTORY: vomiting and umbilical pain CT DLP: 1369.4mGycm Automated Exposure Control for Dose Reduction was Utilized. CONTRAST: CT scan of the abdomen and pelvis is performed with IV Contrast, patient injected with 100 mL of Isov ue 300. COMPARISON: 09/19/2016 FINDINGS: LUNG BASES: Minimal bilateral basilar atelectasis. LIVER/GB: There is left hepatic lobe lesion measuring 1.6 x 1.0 cm marked on image 19 that does not m easure Hounsfield units of simple fluid. This appears new although contrast was not utilized on the e xam of 2016. There is overall a slightly coarsened hepatic attenuation without additional focal appre ciable lesion or intrahepatic biliary ductal dilatation. Very questionable punctate lesion is also se en of the right hepatic lobe posteriorly along the hemidiaphragm on image 15 in segment 7. Gallbladde r is surgically absent. PANCREAS: No significant abnormality is seen. No ductal dilatation. SPLEEN: No significant abnormality is seen. No splenic enlargement. ADRENALS: No significant abnormality is seen. No nodularity. KIDNEYS: Cortical scar or right resection is seen of the left lower pole of the kidney laterally. Pro bable 1.3 cm right midpole renal cyst is seen with Hounsfield unit nearing criteria for a benign simp le cyst. Other scattered bilateral subcentimeter too small to accurately characterize lesions are see n. No hydronephrosis. No calculi within the urinary bladder. BOWEL: Prior gastric bypass postsurgical change. Few fluid-filled loops of nondilated small bowel con taining air-fluid levels. Very few scattered colonic diverticula are seen without pericolonic fat str anding. The appendix is nondilated, partially air-filled, and the gated with a punctate focus of high density distally that appears to represent inspissated secretions/sulcus rather than a small appendi colith. This does not measure Hounsfield units of calcification. Postoperative changes are seen of th e ventral abdominal wall and soft tissues. Submucosal deposition of fat is seen within the right bahman colon and hepatic flexure. Terminal ileum is nondistended. LYMPH NODES: There are multiple similar-appearing prominent central mesenteric lymph nodes that are s imilar to the prior of 2017 and coronal image 45 and 40. OSSEOUS STRUCTURES: Mild multilevel degenerative changes of the spine. IMPRESSION: 1. Few air-fluid levels within nondilated small bowel suggests mild ileus. No CT evidence of acute ap pendicitis. Possible punctate appendicolith versus inspissated succus within the distal appendix. 2. Left hepatic lobe lesion appears new from the prior although the prior exam did not utilize intrav enous contrast. Nonemergent full characterization with three-phase enhanced CT is recommended. 3. Probable right renal cyst and other renal lesions that are too small to accurately characterize. 4. Multiple upper limits of normal mediastinal lymph nodes are stable from the prior and may be react nelda. 5. Submucosal fat deposition within the ascending and hepatic flexure can be seen as sequela of chron ic colitis.
[2018-09-25] MEDS ORDERED: ONDANSETRON 4 MG/2 ML VIAL IVP PRN (12:37)
[2018-09-25] MEDS ORDERED: NALOXONE 0.4 MG/ML 1 ML VIAL IV PRN (12:37)
[2018-09-25] MEDS: SODIUM CHLORIDE 0.9% 1,000 ML IV SCH ×2 (14:25→20:21)
[2018-09-25 15:28] VITALS: BMI 40.7
[2018-09-25] MEDS: MORPHINE SULFATE 4 MG/ML SYRINGE IV PRN ×2 (15:35→19:59)
[2018-09-25] MEDS ORDERED: ALPRAZolam 1 MG TAB PO PRN (16:25)
--- NOTE | 2018-09-25 20:13 | P.GSCN ---
History of Present Illness Consult date: 09/25/18 Reason for Consult: Abdominal pain History of present illness: Patient comes to the hospital with complaints of mid abdominal pain that began 2 -3 days ago. This initially was associated with vomiting and diarrhea. Diarrhea has resolved. Still feels nauseated. Some dry heaves. Patient is a history of previous incisional hernia repairs. Also has a history of previous abdominoplasty. Describes a bulge in the right paramedian location. CAT scan reviewed and shows no evidence of fascial defect. No evidence of bowel obstruction. Labs noted. Afebrile. Review of Systems The patient denies any acute changes in vision or hearing, no dysphagia or odynophagia, no chest pain or shortness of breath, no dysuria or hematuria, no headache, no runny nose, no rectal bleeding or melena, no unexplained weight loss Past Medical History Past Medical History: Hypertension, Pneumonia Additional Past Medical History / Comment(s): ULCER LONG AGO. MIGRAINES, ABDOMINAL PAIN. hernia History of Any Multi-Drug Resistant Organisms: None Reported Past Surgical History: Bariatric Surgery, Breast Surgery, Section, Cholecystectomy, Hernia Repair, Tonsillectomy Additional Past Surgical History / Comment(s): CONCEPCI[place]N-N-Y 2007. BREAST REDUCTION. TUMMY TUCK. [employer] Hernia repair 08/22/14 Past Anesthesia/Blood Transfusion Reactions: No Reported Reaction, Family History of Problems w/ Anesthesia Additional Past Anesthesia/Blood Transfusion Reaction / Comm: MOTHER AWAKENS DURING SURGERY. Past Psychological History: Anxiety, Panic Disorder Smoking Status: Current every day smoker Past Alcohol Use History: Occasional Past Drug Use History: Marijuana - Past Family History Mother Family Medical History: Hypertension Father Family Medical History: Hypertension Brother(s) Family Medical History: No Reported History Medications and Allergies Home Medications Medication Instructions Recorded Confirmed Type amLODIPine [Norvasc] 10 mg PO QAM 03/26/14 09/25/18 History ALPRAZolam [Xanax] 1 mg PO BID PRN 06/10/14 09/25/18 History Butalbit/Acetamin/Caff/Codeine 1 - 2 cap PO Q4HR PRN 03/14/15 09/25/18 History [Fioricet-Cod 75-061-15-30 Cap] Propranolol HCl [Propranolol HCl 120 mg PO QAM 06/07/16 09/25/18 History ER] Ondansetron Odt [Zofran ODT] 4 mg PO Q8HR PRN #15 tab 06/27/16 09/25/18 Rx HYDROcodone/APAP 7.5-325MG [[place] 1 tab PO Q4H PRN 06/16/17 09/25/18 History 7.5-325] Vortioxetine Hydrobromide 10 mg PO HS 06/16/17 09/25/18 History [Trintellix] Cetirizine HCl [Zyrtec] 10 mg PO DAILY 09/25/18 09/25/18 History Fluticasone Propionate [Flonase 1 - 2 spray EA NOSTRIL DAILY PRN 09/25/18 09/25/18 History Allergy Relief] Lisinopril 40 mg PO DAILY 09/25/18 09/25/18 History Pantoprazole [Protonix] 40 mg PO DAILY 09/25/18 09/25/18 History busPIRone HCl [Buspar] 5 mg PO BID 09/25/18 09/25/18 History Allergies Allergy/AdvReac Type Severity Reaction Status Date / Time sulfamethoxazole Allergy Unknown Verified 09/25/18 16:16 [From Bactrim] Childhood trimethoprim [From Bactrim] Allergy Unknown Verified 09/25/18 16:16 Childhood sumatriptan [From Imitrex] AdvReac Severe Rapid Verified 09/25/18 16:16 Heart Rate Surgical - Exam Vital Signs Temp Pulse Resp BP Pulse Ox 98.2 F 92 18 120/83 97 09/25/18 08:34 09/25/18 08:34 09/25/18 08:34 09/25/18 08:34 09/25/18 08:34 Physical exam: General: Well-developed, well-nourished HEENT: Normocephalic, sclerae nonicteric Abdomen: Tenderness right paramedian, subtle fullness but no palpable fascial defect or obvious hernia, nondistended Extremities: No edema Neuro: Alert and oriented Results - Labs 09/25/18 08:58 09/25/18 08:58 Abnormal Lab Results - Last 24 Hours (Table) 09/25/18 09/25/18 Range/Units 08:58 08:58 BUN 27 H (7-17) mg/dL Glucose 104 H (74-99) mg/dL Total Protein 8.4 H (6.3-8.2) g/dL Amylase 112 H (30-110) U/L Urine Appearance Cloudy H (Clear) Urine Protein 1+ H (Negative) Ur Squamous Epith Cells 8 H (0-4) /hpf Urine Bacteria Rare H (None) /hpf Hyaline Casts 12 H (0-2) /lpf Urine Mucus Few H (None) /hpf Diabetes panel 09/25/18 Range/Units 08:58 Sodium 141 (137-145) mmol/L Potassium 4.7 (3.5-5.1) mmol/L Chloride 105 (98-107) mmol/L Carbon Dioxide 25 (22-30) mmol/L BUN 27 H (7-17) mg/dL Creatinine 0.95 (0.52-1.04) mg/dL Glucose 104 H (74-99) mg/dL Calcium 9.9 (8.4-10.2) mg/dL AST 33 (14-36) U/L ALT 31 (9-52) U/L Alkaline Phosphatase 53 (38-126) U/L Total Protein 8.4 H (6.3-8.2) g/dL Albumin 5.0 (3.5-5.0) g/dL Calcium panel 09/25/18 Range/Units 08:58 Calcium 9.9 (8.4-10.2) mg/dL Albumin 5.0 (3.5-5.0) g/dL Pituitary panel 09/25/18 Range/Units 08:58 Sodium 141 (137-145) mmol/L Potassium 4.7 (3.5-5.1) mmol/L Chloride 105 (98-107) mmol/L Carbon Dioxide 25 (22-30) mmol/L BUN 27 H (7-17) mg/dL Creatinine 0.95 (0.52-1.04) mg/dL Glucose 104 H (74-99) mg/dL Calcium 9.9 (8.4-10.2) mg/dL Adrenal panel 09/25/18 Range/Units 08:58 Sodium 141 (137-145) mmol/L Potassium 4.7 (3.5-5.1) mmol/L Chloride 105 (98-107) mmol/L Carbon Dioxide 25 (22-30) mmol/L BUN 27 H (7-17) mg/dL Creatinine 0.95 (0.52-1.04) mg/dL Glucose 104 H (74-99) mg/dL Calcium 9.9 (8.4-10.2) mg/dL Total Bilirubin 0.4 (0.2-1.3) mg/dL AST 33 (14-36) U/L ALT 31 (9-52) U/L Alkaline Phosphatase 53 (38-126) U/L Total Protein 8.4 H (6.3-8.2) g/dL Albumin 5.0 (3.5-5.0) g/dL Assessment and Plan (1) Abdominal pain Narrative/Plan: Patient with abdominal pain. She says she has had pain like this previously. Possibly on the basis of gastroenteritis. Possibly on the basis of muscular skeletal strain. Continue nothing by mouth except for ice chips. We will reevaluate tomorrow. Current Visit: Yes Status: Acute Code(s): R10.9 - UNSPECIFIED ABDOMINAL PAIN OMED Code(s): 00852401
[2018-09-25] MEDS: busPIRone HCl 5 MG TAB PO SCH (20:21)
[2018-09-26] MEDS: MORPHINE SULFATE 4 MG/ML SYRINGE IV PRN ×3 (00:02→09:41)
[2018-09-26] MEDS: SODIUM CHLORIDE 0.9% 1,000 ML IV SCH (05:16)
[2018-09-26] MEDS ORDERED: PANTOPRAZOLE 40 MG TABLET PO SCH (07:30)
[2018-09-26] MEDS ORDERED: PROPRANOLOL LA 60 MG CAP.SA.24H PO SCH (09:00)
[2018-09-26] MEDS ORDERED: amLODIPine 10 MG TAB PO SCH (09:00)
[2018-09-26] MEDS ORDERED: LISINOPRIL 20 MG TAB PO SCH (09:00)
[2018-09-26 09:10] VITALS: RESP 18
[2018-09-26] MEDS: busPIRone HCl 5 MG TAB PO SCH (09:41)
[2018-09-26 09:48] LABS: Basophils % (A) 1 %; Eosinophils # (A) 0.2 k/uL (0-0.7); Eosinophils % (A) 4 %; HCT 39.2 % (34.0-46.0); Lymphocytes # (A) 1.5 k/uL (1.0-4.8); Lymphocytes % (A) 25 %; MCH 26.9 pg (25.0-35.0); MCHC 30.6 g/dL (31.0-37.0); MCV 87.9 fL (80.0-100.0); Mean Platelet Volume 6.8; Monocytes # (A) 0.3 k/uL (0-1.0); Monocytes % (A) 5 %; Neutrophils # (A) 3.6 k/uL (1.3-7.7); Neutrophils % (A) 63 %; Platelet Count 334 k/uL (150-450); RBC 4.46 m/uL (3.80-5.40); RDW 15.1 % (11.5-15.5); WBC 5.7 k/uL (3.8-10.6)
[2018-09-26 09:54] LABS: Anion Gap 6 mmol/L; Blood Urea Nitrogen 15 mg/dL (7-17); Calcium 8.8 mg/dL (8.4-10.2); Carbon Dioxide 27 mmol/L (22-30); Chloride 108 mmol/L (98-107); Glucose 85 mg/dL (74-99); Potassium 4.2 mmol/L (3.5-5.1); Sodium 141 mmol/L (137-145)
[2018-09-26] MEDS ORDERED: HYDROcodone/APAP 7.5-325MG 1 EACH TAB PO PRN ×2 (13:34→13:46)
--- NOTE | 2018-09-26 13:46 | P.PN ---
Subjective Progress Note Date: 09/26/18 Principal diagnosis: Abdominal pain Applications pain is improved today. It feels better when she applies pressure to that area. She says it reminds of her her hernia pain in the past. She is afebrile. White blood cell count normal at 5.7. She is hungry. No vomiting or nausea today. She is asking to possibly go home later today. Objective - Vital Signs Vital signs: Vital Signs Temp 98.8 F 09/26/18 09:09 Pulse 59 L 09/26/18 09:09 Resp 18 09/26/18 09:09 BP 128/66 09/26/18 09:09 Pulse Ox 95 09/26/18 00:06 Intake & Output 09/25/18 09/26/18 09/26/18 18:59 06:59 18:59 Intake Total 0 2100 Output Total 225 550 300 Balance -225 1550 -300 Weight 101.1 kg Intake: Intake, IV Titration 2000 Amount Sodium Chloride 0.9% 1, 2000 000 ml @ 120 mls/hr IV . Q8H20M [facility] Rx#:[id number] Oral 0 100 Output: Urine 225 550 300 Other: Voiding Method Toilet # Voids 1 - Exam Abdomen: Soft, nondistended, mild tenderness right periumbilical, no hernia palpable - Labs CBC & Chem 7: 09/26/18 09:20 09/26/18 09:20 Labs: Abnormal Lab Results - Last 24 Hours (Table) 09/26/18 09/26/18 Range/Units 09:20 09:20 MCHC 30.6 L (31.0-37.0) g/dL Chloride 108 H (98-107) mmol/L Assessment and Plan (1) Abdominal pain Narrative/Plan: Etiology of the pain unclear but may be on the basis of musculoskeletal strain from recent vomiting. Will resume liquid diet. May advance slowly as tolerated. Will add abdominal binder. [place] for pain. Possible discharge later today if doing well. Current Visit: Yes Status: Acute Code(s): R10.9 - UNSPECIFIED ABDOMINAL PAIN SNOMED Code(s): 19071710
--- NOTE | 2018-09-26 14:59 | P.DS ---
Providers Date of admission: 09/25/18 13:47 Expected date of discharge: 09/26/18 Attending physician: Tabby Smith MD Consults: 09/25/18 15:24 Consult Physician Routine Consulting Provider: Kaitlin Enriquez Consult Reason/Comments: umbilical/ RLQ abdominal pain, h/o hernia repair, appendicolith, ileus, Do you want consulting provider notified?: Yes Primary care physician: Tequila Nielsen [facility] Course: Patient comes to the hospital with complaints of mid abdominal pain that began 2-3 days ago. This initially was associated with vomiting and diarrhea. Diarrhea has resolved. Still feels nauseated. Some dry heaves. Patient is a history of previous incisional hernia repairs. Also has a history of previous abdominoplasty. Describes a bulge in the right paramedian location. CAT scan reviewed and shows no evidence of fascial defect. No evidence of bowel obstruction. Labs noted. Afebrile. Patient was seen by surgery and was recommended close monitoring for possible gastroenteritis and musculoskeletal strain; patient remained stable and her diet was advanced slowly without any complications; patient is cleared for discharge by surgery and follow-up with PCP as an outpatient Patient Condition at Discharge: Fair Plan - Discharge Summary Discharge Rx Participant: No New Discharge Prescriptions: Continue amLODIPine [Norvasc] 10 mg PO QAM ALPRAZolam [Xanax] 1 mg PO BID PRN PRN Reason: Anxiety Butalbit/Acetamin/Caff/Codeine [Fioricet-Cod 26-333-23-30 Cap] 1 - 2 cap PO Q4HR PRN PRN Reason: Migraine Headache Propranolol HCl [Propranolol HCl ER] 120 mg PO QAM Ondansetron Odt [Zofran ODT] 4 mg PO Q8HR PRN #15 tab PRN Reason: Nausea HYDROcodone/APAP 7.5-325MG [[place] 7.5-325] 1 tab PO Q4H PRN PRN Reason: Pain Vortioxetine Hydrobromide [Trintellix] 10 mg PO HS busPIRone HCl [Buspar] 5 mg PO BID Pantoprazole [Protonix] 40 mg PO DAILY Cetirizine HCl [Zyrtec] 10 mg PO DAILY Lisinopril 40 mg PO DAILY Fluticasone Propionate [Flonase Allergy Relief] 1 - 2 spray EA NOSTRIL DAILY PRN PRN Reason: Nasal Congestion Discharge Medication List amLODIPine [Norvasc] 10 mg PO QAM 03/26/14 [History] ALPRAZolam [Xanax] 1 mg PO BID PRN 06/10/14 [History] Butalbit/Acetamin/Caff/Codeine [Fioricet-Cod 14-784-01-30 Cap] 1 - 2 cap PO Q4HR PRN 03/14/15 [History] Propranolol HCl [Propranolol HCl ER] 120 mg PO QAM 06/07/16 [History] Ondansetron Odt [Zofran ODT] 4 mg PO Q8HR PRN #15 tab 06/27/16 [Rx] HYDROcodone/APAP 7.5-325MG [[place] 7.5-325] 1 tab PO Q4H PRN 06/16/17 [History] Vortioxetine Hydrobromide [Trintellix] 10 mg PO HS 06/16/17 [History] Cetirizine HCl [Zyrtec] 10 mg PO DAILY 09/25/18 [History] Fluticasone Propionate [Flonase Allergy Relief] 1 - 2 spray EA NOSTRIL DAILY PRN 09/25/18 [History] Lisinopril 40 mg PO DAILY 09/25/18 [History] Pantoprazole [Protonix] 40 mg PO DAILY 09/25/18 [History] busPIRone HCl [Buspar] 5 mg PO BID 09/25/18 [History] Follow up Appointment(s)/Referral(s): Pedro Luis Mandel MD [Primary Care Provider] - 1-2 days Discharge Disposition: HOME SELF-CARE
[2018-09-26 15:40] VITALS: BP 104/73; PULSE 58; TEMP 98.1
--- NOTE | 2018-10-09 02:25 | P.HPIM ---
History of Present Illness H&P Date: 09/25/18 Chief Complaint: Abd pain, vomiting 38-year-old female with a past medical history hypertension, pneumonia, migraines, abdominal pain, hernia presents to the emergency department for a chief complaint of abdominal pain x 2 days. Patient states that about 4 days ago she began experiencing vomiting and diarrhea. States that the diarrhea only lasted for one day but that the vomiting has persisted. States that yesterday she developed a sharp pain to the right of her umbilicus. Denies any alleviating or aggravating factors. States that this area feels "harris" than n ormal. Patient does admit to having a hernia repair previously by Dr Yeh without any complications. Patient has no other complaints at this time including shortness of breath, chest pain, headache, or visual changes. On exam patient does have possible hernia noted to the right side of the u mbilicus which is tender to palpation without erythema. There is also some right lower quadrant tenderness. CBC is unremarkable, white count is 8. CMP unremarkable. Lactic acid 1.6. Urine negative. There are multiple findings noted on CT abdomen and pelvis with IV contrast. There are a few air-fluid levels suggested of ileus. There is a possible punctate appendicolith versus inspissated succus within the distal appendix but no sign of acute appendicitis. There is also a left hepatic lobe lesion that appears new as well as a right renal cysts and other renal lesions too small to characterize. Mediastinal lymph nodes noted as well as submucosal fat deposition which could be secondary to chronic colitis although patient does not states she has a history of this. Patient reexamined, still having significant tenderness noted near the umbilicus Review of Systems Constitutional: Reports anorexia, Denies chills, Denies fever Eyes: denies blurred vision Cardiovascular: Denies chest pain, Denies shortness of breath Respiratory: Denies cough with sputum Gastrointestinal: Reports abdominal pain, Reports nausea, Reports vomiting Musculoskeletal: Denies frequent falls, Denies low back pain Integumentary: Denies color changes Neurological: Denies confusion, Denies double vision Psychiatric: Denies anxiety, Denies confusion Endocrine: Denies cold intolerance, Denies heat intolerance Hematologic/Lymphatic: Denies easy bruising, Denies lymphadenopathy Past Medical History Past Medical History: Hypertension, Pneumonia Additional Past Medical History / Comment(s): ULCER LONG AGO. MIGRAINES, ABDOMINAL PAIN. hernia History of Any Multi-Drug Resistant Organisms: None Reported Past Surgical History: Bariatric Surgery, Breast Surgery, Section, Cholecystectomy, Hernia Repair, Tonsillectomy Additional Past Surgical History / Comment(s): CONCEPCI[place]N-N-Y 2008. BREAST REDUCTION. TUMMY TUCK. [employer] Hernia repair 08/22/14 Past Anesthesia/Blood Transfusion Reactions: No Reported Reaction, Family History of Problems w/ Anesthesia Additional Past Anesthesia/Blood Transfusion Reaction / Comment(s): MOTHER AWAKENS DURING SURGERY. Past Psychological History: Anxiety, Panic Disorder Smoking Status: Current every day smoker Past Alcohol Use History: Occasional Past Drug Use History: Marijuana - Past Family History Mother Family Medical History: Hypertension Father Family Medical History: Hypertension Brother(s) Family Medical History: No Reported History Medications and Allergies Home Medications Medication Instructions Recorded Confirmed Type amLODIPine [Norvasc] 10 mg PO QAM 03/26/14 09/25/18 History ALPRAZolam [Xanax] 1 mg PO BID PRN 06/10/14 09/25/18 History Butalbit/Acetamin/Caff/Codeine 1 - 2 cap PO Q4HR PRN 03/14/15 09/25/18 History [Fioricet-Cod 39-657-68-30 Cap] Propranolol HCl [Propranolol HCl 120 mg PO QAM 06/07/16 09/25/18 History ER] Ondansetron Odt [Zofran ODT] 4 mg PO Q8HR PRN #15 tab 06/27/16 09/25/18 Rx HYDROcodone/APAP 7.5-325MG [[place] 1 tab PO Q4H PRN 06/16/17 09/25/18 History 7.5-325] Vortioxetine Hydrobromide 10 mg PO HS 06/16/17 09/25/18 History [Trintellix] Cetirizine HCl [Zyrtec] 10 mg PO DAILY 09/25/18 09/25/18 History Fluticasone Propionate [Flonase 1 - 2 spray EA NOSTRIL DAILY PRN 09/25/18 09/25/18 History Allergy Relief] Lisinopril 40 mg PO DAILY 09/25/18 09/25/18 History Pantoprazole [Protonix] 40 mg PO DAILY 05/17/19 05/17/19 History busPIRone HCl [Buspar] 5 mg PO BID 09/25/18 09/25/18 History Allergies Allergy/AdvReac Type Severity Reaction Status Date / Time sulfamethoxazole Allergy Unknown Verified 09/25/18 16:16 [From Bactrim] Childhood trimethoprim [From Bactrim] Allergy Unknown Verified 09/25/18 16:16 Childhood sumatriptan [From Imitrex] AdvReac Severe Rapid Verified 09/25/18 16:16 Heart Rate Physical Exam Vitals: Vital Signs Temp Pulse Pulse Resp BP BP Pulse Ox 09/25/18 15:00 97.7 F 64 16 119/77 96 09/25/18 14:19 98.0 F 74 18 110/66 100 09/25/18 11:30 74 18 115/69 99 09/25/18 10:27 78 19 135/88 100 09/25/18 08:34 98.2 F 92 18 120/83 97 Intake and Output 09/25/18 09/25/18 09/25/18 06:59 14:59 22:59 Other: Weight 100.244 kg Limitations: no limitations General appearance: alert, in no apparent distress Head exam: Present: atraumatic, normocephalic, normal inspection Eye exam: Present: normal appearance, PERRL, EOMI. Absent: scleral icterus, conjunctival injection, periorbital swelling ENT exam: Present: normal exam, mucous membranes moist Neck exam: Present: normal inspection. Absent: tenderness, meningismus, lymphadenopathy Respiratory exam: Present: normal lung sounds bilaterally. Absent: respiratory distress, wheezes, rales, rhonchi, stridor Cardiovascular Exam: Present: regular rate, normal rhythm, normal heart sounds. Absent: systolic murmur, diastolic murmur, rubs, gallop, clicks GI/Abdominal exam: Present: soft, tenderness (Tenderness noted to the right lo wer quadrant as well as umbilical area), normal bowel sounds, hernia (Possible hernia palpated to the right of the umbilicus). Absent: distended, guarding, rebound, rigid Neurological exam: Present: alert, oriented X3, CN II-XII intact Psychiatric exam: Present: normal affect, normal mood Results CBC & Chem 7: 09/26/18 09:20 09/26/18 09:20 Labs: Abnormal Lab Results - Last 24 Hours (Table) 09/25/18 09/25/18 Range/Units 08:58 08:58 BUN 27 H (7-17) mg/dL Glucose 104 H (74-99) mg/dL Total Protein 8.4 H (6.3-8.2) g/dL Amylase 112 H (30-110) U/L Urine Appearance Cloudy H (Clear) Urine Protein 1+ H (Negative) Ur Squamous Epith Cells 8 H (0-4) /hpf Urine Bacteria Rare H (None) /hpf Hyaline Casts 12 H (0-2) /lpf Urine Mucus Few H (None) /hpf Thrombosis Risk Factor Assmnt - Choose All That Apply Any of the Below Risk Factors Present?: Yes Each Factor Represents 1 point: Obesity (BMI >25) Other Risk Factors: No Other congenital or acquired thrombophilia - If yes, enter type in comment: No Thrombosis Risk Factor Assessment Total Risk Factor Score: 1 Thrombosis Risk Factor Assessment Level: Low Risk Assessment and Plan Plan: 1. Abdominal pain - Possible small bowel ileus - Possible appendicolith versus inspissated succus within distal appendix 2. Left hepatic lobe lesion 3. Right renal cyst 4. Mild renal injury/dehydration 5. DVT prophylaxis CODE STATUS; full code Time with Patient: Greater than 30
== END 2018-09-26 18:32 | disposition home or self-care (01) ==
LOC: EC 08:33 → INTOOBSV 13:47 → 6PED 13:47 → UNDODISIN 09-26 18:32
PROVIDERS: ADMIT Internal Medicine; ATTEND Internal Medicine
DX: R10.31 Right lower quadrant pain (principal); R10.33 Periumbilical pain; R19.7 Diarrhea, unspecified; R11.2 Nausea with vomiting, unspecified; E86.0 Dehydration; F41.0 Panic disorder [episodic paroxysmal anxiety]; I10 Essential (primary) hypertension; G43.909 Migraine, unspecified, not intractable, without status migrainosus; F17.200 Nicotine dependence, unspecified, uncomplicated; N28.1 Cyst of kidney, acquired; K76.9 Liver disease, unspecified; E66.9 Obesity, unspecified; Z68.41 Body mass index [BMI] 40.0-44.9, adult; Z79.899 Other long term (current) drug therapy; Z98.84 Bariatric surgery status; Z98.0 Intestinal bypass and anastomosis status; Z87.11 Personal history of peptic ulcer disease; Z87.01 Personal history of pneumonia (recurrent); Z88.2 Allergy status to sulfonamides; Z88.8 Allergy status to other drugs, medicaments and biological substances; Z90.49 Acquired absence of other specified parts of digestive tract; Z82.49 Family history of ischemic heart disease and other diseases of the circulatory system
CPT/HCPCS: 96361 ×2; 96376 ×2; 96374; 96375; 99285; 36415; 80053; 80048; 82150; 83605; 83690; 85025 ×2; 81001; 81025; 74177; G0378 ×2; J2270 ×2; J2405; Q9967

== ENCOUNTER 2018-12-16 21:51 | Emergency (ER) | payer OTHER ==
[2018-12-16 22:02] VITALS: RESP 18
--- NOTE | 2018-12-16 22:33 | ED ---
General Adult HPI - General Chief complaint: Skin/Abscess/Foreign Body Stated complaint: Cyst under Breast Time Seen by Provider: 12/16/18 21:53 Source: patient, EMS, RN notes reviewed Mode of arrival: EMS - History of Present Illness Initial comments: 38-year-old female with a past medical history of hypertension, migraines, abdominal pain presents to the emergency department for a chief complaint of abscess on left breast. This is been ongoing for 10 months. Patient states if 10 today. Denies any fevers or chills. Denies any redness of the left breast. States it is painful over the abscess site. States she usually follows up with Dr. Rosario for this but she may need antibiotics. States the area is already draining.Patient has no other complaints at this time including shortness of breath, chest pain, abdominal pain, nausea or vomiting, headache, or visual changes. - Related Data Home Medications Medication Instructions Recorded Confirmed amLODIPine [Norvasc] 10 mg PO QAM 03/26/14 09/25/18 ALPRAZolam [Xanax] 1 mg PO BID PRN 06/10/14 09/25/18 Butalbit/Acetamin/Caff/Codeine 1 - 2 cap PO Q4HR PRN 03/14/15 09/25/18 [Fioricet-Cod 97-833-48-30 Cap] Propranolol HCl [Propranolol HCl 120 mg PO QAM 06/07/16 09/25/18 ER] HYDROcodone/APAP 7.5-325MG [[place] 1 tab PO Q4H PRN 06/16/17 09/25/18 7.5-325] Vortioxetine Hydrobromide 10 mg PO HS 06/16/17 09/25/18 [Trintellix] Cetirizine HCl [Zyrtec] 10 mg PO DAILY 09/25/18 09/25/18 Fluticasone Propionate [Flonase 1 - 2 spray EA NOSTRIL DAILY PRN 09/25/18 09/25/18 Allergy Relief] Lisinopril 40 mg PO DAILY 09/25/18 09/25/18 Pantoprazole [Protonix] 40 mg PO DAILY 09/25/18 09/25/18 busPIRone HCl [Buspar] 5 mg PO BID 09/25/18 09/25/18 Previous Rx's Medication Instructions Recorded Ondansetron Odt [Zofran ODT] 4 mg PO Q8HR PRN #15 tab 06/27/16 Clindamycin [Cleocin] 450 mg PO Q8H 10 Days capsule 12/16/18 Allergies Allergy/AdvReac Type Severity Reaction Status Date / Time sulfamethoxazole Allergy Unknown Verified 09/25/18 16:16 [From Bactrim] Childhood trimethoprim [From Bactrim] Allergy Unknown Verified 09/25/18 16:16 Childhood sumatriptan [From Imitrex] AdvReac Severe Rapid Verified 09/25/18 16:16 Heart Rate Review of Systems ROS Statement: Those systems with pertinent positive or pertinent negative responses have been documented in the HPI. ROS Other: All systems not noted in ROS Statement are negative. Past Medical History Past Medical History: Hypertension, Pneumonia Additional Past Medical History / Comment(s): ULCER LONG AGO. MIGRAINES, ABDOMINAL PAIN. hernia History of Any Multi-Drug Resistant Organisms: None Reported Past Surgical History: Bariatric Surgery, Breast Surgery, Section, Cholecystectomy, Hernia Repair, Tonsillectomy Additional Past Surgical History / Comment(s): CONCEPCIÓN-N-Y 2008. BREAST REDUCTION. TUMMY TUCK. INC[employer] Hernia repair 08/22/14 Past Anesthesia/Blood Transfusion Reactions: No Reported Reaction, Family History of Problems w/ Anesthesia Additional Past Anesthesia/Blood Transfusion Reaction / Comment(s): MOTHER AWAKENS DURING SURGERY. Past Psychological History: Anxiety, Panic Disorder Smoking Status: Current every day smoker Past Alcohol Use History: Occasional Past Drug Use History: Marijuana - Past Family History Mother Family Medical History: Hypertension Father Family Medical History: Hypertension Brother(s) Family Medical History: No Reported History General Exam General appearance: alert, in no apparent distress Head exam: Present: atraumatic, normocephalic, normal inspection Eye exam: Present: normal appearance, PERRL, EOMI. Absent: scleral icterus, conjunctival injection, periorbital swelling ENT exam: Present: normal exam, mucous membranes moist Neck exam: Present: normal inspection, full ROM. Absent: tenderness, meningismus, lymphadenopathy Respiratory exam: Present: normal lung sounds bilaterally, other (Patient has a 3 cm x 3 cm abscess noted to the left areola which is already draining purulent material.). Absent: respiratory distress, wheezes, rales, rhonchi, stridor Cardiovascular Exam: Present: regular rate, normal rhythm. Absent: bradycardia, tachycardia, irregular rhythm GI/Abdominal exam: Present: soft, normal bowel sounds. Absent: distended, tenderness, guarding, rebound, rigid Neurological exam: Present: alert, oriented X3 Psychiatric exam: Present: normal affect, normal mood Course Vital Signs 12/16/18 21:55 Temperature 98.6 F Pulse Rate 97 Respiratory 18 Rate Blood Pressure 157/104 O2 Sat by Pulse 97 Oximetry Medical Decision Making - Medical Decision Making 38-year-old female presents to the emergency department for a chief complaint of breast abscess. This has been ongoing for 10 months and frequently drains. Patient states it again started draining today. States she usually gets a surgical debridement by Dr. Rosario outpatient but she may need antibiotics. Denies fevers or chills. Admits to pain over the abscess site but denies any s ignificant breast tenderness otherwise. Denies any erythema. On exam there is a 3 second liter by 3 cm abscess of the left areolar area draining copious purulent material. This was drained further. Patient will be put on clindamycin as she is ALLERGIC to sulfa. Discussed importance of following up with her surgeon. Discussed returning here if she starts to have any fevers, or worsening pain or any other concerning symptoms. Disposition Clinical Impression: Abscess of left breast Disposition: HOME SELF-CARE Condition: Good Instructions (If sedation given, give patient instructions): Abscess (ED) Additional Instructions: Please take antibiotics as directed. Apply warm compreses. Follow-up with your surgeon tomorrow. If you start to have worsening symptoms or fevers return to the emergency department. Prescriptions: Clindamycin [Cleocin] 450 mg PO Q8H 10 Days capsule Is patient prescribed a controlled substance at d/c from ED?: No Referrals: Pedro Luis Mandel MD [Primary Care Provider] - 1-2 days Nadine Rosario DO [Doctor of Osteopathic Medicine] - 1-2 days Time of Disposition: 22:28
[2018-12-16 22:46] VITALS: BP 125/91; PULSE 98; TEMP 98
== END 2018-12-16 22:49 | disposition home or self-care (01) ==
LOC: EC 21:51
DX: N61.1 Abscess of the breast and nipple (principal); I10 Essential (primary) hypertension; F41.0 Panic disorder [episodic paroxysmal anxiety]; F17.200 Nicotine dependence, unspecified, uncomplicated; Z79.899 Other long term (current) drug therapy; Z88.1 Allergy status to other antibiotic agents; Z88.2 Allergy status to sulfonamides; Z98.84 Bariatric surgery status
CPT/HCPCS: 99283

== ENCOUNTER → 2019-06-08 | Outpatient (CLI) | payer OTHER ==
--- NOTE | 2019-06-08 10:22 | US ---
EXAMINATION TYPE: US abdomen complete DATE OF EXAM: 06/08/2019 COMPARISON: CT dated 09/25/2018 CLINICAL HISTORY: R10.9 ABDOMINAL PAIN. Pt states lower right of midline ABD pain/ pt states multiple hernia repairs in that area, most recent surgery approx 2 yrs ago EXAM MEASUREMENTS: Liver Length: 13.5 cm CBD: 0.5 cm Spleen: 9.0 cm Right Kidney: 12.0 x 5.0 x 5.0 cm Left Kidney: 11.9 x 6.4 x 5.4 cm Pancreas: wnl, tail obscured by overlying bowel gas Liver: Hyperechoic lesion left anterior lobe= 1.3 x 1.2 x 1.3 cm . Overall the liver is heterogenous . Gallbladder: Surgically absent Evidence for sonographic Ly's sign: No CBD: wnl Spleen: wnl Right Kidney: Hyperechoic lesion lower pole= 0.9 x 0.7 x 0.8 cm. When retrospectively compared to co tai image 58 of the exam of 09/25/2018 this represents a fat-containing angiomyolipoma. Simple cyst of the midpole measures 1.5 x 1.0 x 1.2 cm Left Kidney: wnl Upper IVC: wnl Abd Aorta: wnl Lower ABD, right of midline where pt had previous hernia repair and in area of pain there appears t o be a hypoechoic collection= 5.1 x 1.7 x 4.4 cm/ No peristalsis on valsalva/ left side imaged for co mparison IMPRESSION: 1. At the location of prior hernia repair there is a complex fluid collection that is primarily avasc ular, likely postoperative seroma or organizing hematoma. This is not seen on the prior CT of 09/26/19 19. Correlate for interval injury. 2. Hyperechoic hepatic lesion is most commonly related to a hemangioma in a patient of this age group without risk factors for hepatocellular carcinoma. However this is not definitively characterized as hemangioma on the prior CT of 09/25/2018 and could be definitively characterized with enhanced MRI of the liver.
== END ==
LOC: RADUSWWP 08:15
PROVIDERS: ATTEND Family Medicine
DX: K76.9 Liver disease, unspecified (principal); R93.5 Abnormal findings on diagnostic imaging of other abdominal regions, including retroperitoneum
CPT/HCPCS: 76700

== ENCOUNTER → 2019-06-08 | Outpatient (CLI) | payer OTHER ==
--- NOTE | 2019-06-08 14:38 | CT ---
EXAMINATION TYPE: CT abdomen w con DATE OF EXAM: 06/08/2019 COMPARISON: 09/25/2018 HISTORY: RIGHT MIDDLE ABDOMINAL PAIN CT DLP: 1234.9 mGycm CONTRAST: CT scan of the abdomen and pelvis is performed with Oral Contrast and with IV Contrast, patient injec aron with 100 mL of Isovue 300. FINDINGS: LUNG BASES-: No visible nodule. No infiltrate. LIVER/GB: Cholecystectomy clips are in place. Stable hypoattenuating lesion within the lateral segm ent left hepatic lobe near its periphery measuring 9 mm versus 9 mm. No additional hepatic lesions ar e seen. Biliary tree is of normal caliber. PANCREAS: No inflammation. No distinct mass. SPLEEN: No splenic enlargement. No lesion seen. ADRENALS: No nodule. No thickening. KIDNEYS/BLADDER: No hydronephrosis. No nephrolithiasis. Simple cysts midpole right kidney measures 1.1 cm. No solid renal lesions are seen at this time. Urinary bladder grossly unremarkable. BOWEL: Normal appendix. Normal bowel caliber. No inflammation. LYMPH NODES: No greater than 1cm abdominal or pelvic lymph nodes are appreciated. AORTA: No significant abnormality. OSSEOUS STRUCTURES: No significant abnormality is seen. OTHER: No significant additional abnormality is seen. IMPRESSION: 1. Small nonspecific hepatic lesion is stable. This may reflect a small cyst. No additional lesions s een. 2. Simple right renal cyst redemonstrated. 3. No evidence for acute process within the abdomen.
== END | disposition home or self-care (01) ==
LOC: RADCTMAIN 13:20
PROVIDERS: ATTEND Nurse Practitioner Adult Health
DX: N28.1 Cyst of kidney, acquired (principal); K76.9 Liver disease, unspecified
CPT/HCPCS: 74160; Q9967

== ENCOUNTER → 2019-06-09 | Outpatient (CLI) | payer OTHER ==
[2019-06-09 15:25] VITALS: BP 163/99; PULSE 81; RESP 16; TEMP 98.6; BMI 38.5
--- NOTE | 2019-06-09 15:42 | P.HPBAR ---
Bariatric H&P - History & Physicial H&P Date: 06/09/19 History & Physicial: Visit/CC: ct scan results and ultrasound. Patient initial contact: Initial weight: 117.027 kg Initial weight in pounds: 258.00 Height: 5 ft 1 in Initial BMI: 48.7 Last weight: Current weight: 92.533 kg Current weight in pounds: 204.00 Current BMI: 38.5 [place] body weight (based on NIH guidelines): 47.627 kg Excess body weight loss: 35.2% The patient is a 38 year-old F who presents for Bariatric Assessment. She comes in with chronic abdominal pain. She is seeing Dr. Burger for pain. Her highest weight was 470+ pounds. She reports 40 pounds weight loss from 3 years. She has history of gastric bypass. STUDIES: CT reviewed independently with long appendix for right lower quadrant pain. PLAN: 1. Labs advised 2. Dx lap Past Medical History Past Medical History: Hypertension, Pneumonia Additional Past Medical History / Comment(s): CHRONIC ULCER'S X25 YEARS:(egd/COLONOSCOPY IN 2019 WAS FIRST EVER THAT WAS NEGATIVE FOR ULCER)LONG AGO . MIGRAINES, ABDOMINAL PAIN. hernia (UMBILICAL, RIGHT INGUINAL) History of Any Multi-Drug Resistant Organisms: None Reported Past Surgical History: Bariatric Surgery, Breast Surgery, Section, Cholecystectomy, Hernia Repair, Orthopedic Surgery, Tonsillectomy Additional Past Surgical History / Comment(s): CONCEPCIÓN-N-Y 2007 ([place] [facility]). BREAST REDUCTION. TUMMY TUCK. INCARCERATED INGUIANAL Hernia repair 08/22/14, "pins and plates in left ankle" Past Anesthesia/Blood Transfusion Reactions: No Reported Reaction, Family History of Problems w/ Anesthesia Additional Past Anesthesia/Blood Transfusion Reaction / Comm: MOTHER AWAKENS DURING SURGERY. Past Psychological History: Anxiety, Panic Disorder Additional Psychological History / Comment(s): Pt resides with a roomate and her 16 yr old son. She is independent. Smoking Status: Current every day smoker Past Alcohol Use History: Occasional Additional Past Alcohol Use History / Comment(s): smokes 1/2ppd,started smoking age 19 approx Past Drug Use History: Marijuana Additional Drug Use History / Comment(s): Infrequent use of marijuana - Past Family History Mother Family Medical History: Hypertension Father Family Medical History: Hypertension Brother(s) Family Medical History: No Reported History Surgical - Exam Vital Signs Temp Pulse Resp BP 98.6 F 81 16 163/99 06/09/19 15:22 06/09/19 15:22 06/09/19 15:22 06/09/19 15:22 Bariatric Checklist Checklist: Plan: Checklist: EGD: 1. Hiatal hernia: 2. H. Pylori: HgbA1c: Vitamin D: Smoking: Current every day smoker Primary care physician referral: dr munguia Psychiatry clearance: Cardiology clearance: Sleep study: Diet journal: VTE risk score: VTE risk level: Rehab needs at discharge:
[2019-06-09 17:17] LABS: HCT 42.4 % (34.0-46.0); HGB 12.9 gm/dL (11.4-16.0); MCH 26.6 pg (25.0-35.0); MCHC 30.3 g/dL (31.0-37.0); MCV 87.7 fL (80.0-100.0); Mean Platelet Volume 6.8; Platelet Count 349 k/uL (150-450); RBC 4.83 m/uL (3.80-5.40); RDW 13.9 % (11.5-15.5)
[2019-06-09 17:22] LABS: Partial Thromboplastin Time 22.6 sec (22.0-30.0); Prothrombin Time 10.2 sec (9.0-12.0)
[2019-06-10 00:59] LABS: % Iron Saturation 21.25 (12.00-45.00); Chol/HDL Ratio 1.83; LDL Cholesterol,Calculated 69.8 mg/dL (0.0-131.0); Magnesium 1.8 mg/dL (1.5-2.4); Phosphorus 4.3 mg/dL (2.4-5.1); VLDL Calculation 15.2 mg/dL (5.00-40.00)
[2019-06-10 01:00] LABS: African American GFR (CKD) 133.1 (60.0-200.0); Albumin 4.6 g/dL (3.80-4.90); Albumin/Globulin Ratio 2.19 (1.60-3.17); Anion Gap 9.4 mmol/L (4.00-12.00); Calcium 9.1 mg/dL (8.7-10.3); Carbon Dioxide 26.6 mmol/L (21.6-31.8); Ferritin 7.5 ng/mL (10.0-291.0); Folate, Serum 9.4 ng/mL; Globulin 2.1 g/dL (1.6-3.3); Non-African American GFR(CKD) 114.8 (60.0-200.0); Potassium 3.6 mmol/L (3.5-5.5); Total Bilirubin 0.5 mg/dL (0.3-1.2); Total Protein 6.7 g/dL (6.2-8.2)
[2019-06-10 01:23] LABS: Hemoglobin A1C 5.2 % (4.0-6.0)
[2019-06-10 14:03] LABS: Zinc, Serum 64 ug/dL (60-130)
[2019-06-11 07:09] LABS: Vitamin A 52 ug/dL (38-106)
== END | disposition home or self-care (01) ==
LOC: BARWHC3 14:33
PROVIDERS: ATTEND Surgery Plastic and Reconstructive Surgery
DX: Z48.815 Encounter for surgical aftercare following surgery on the digestive system (principal); R10.9 Unspecified abdominal pain; Z98.84 Bariatric surgery status; Z90.49 Acquired absence of other specified parts of digestive tract; F17.200 Nicotine dependence, unspecified, uncomplicated; E66.01 Morbid (severe) obesity due to excess calories; E21.1 Secondary hyperparathyroidism, not elsewhere classified; E89.1 Postprocedural hypoinsulinemia; D50.9 Iron deficiency anemia, unspecified; K90.9 Intestinal malabsorption, unspecified; E55.9 Vitamin D deficiency, unspecified; K76.9 Liver disease, unspecified; N19 Unspecified kidney failure; K50.90 Crohn's disease, unspecified, without complications; Z68.38 Body mass index [BMI] 38.0-38.9, adult
CPT/HCPCS: 84255; 84134; 84425; 80061; 80053; 82607; 82728; 82525; 82746; 83540; 83550; 83735; 84100; 84443; 84590; 84630; 85027; 85610; 85730; 82306; 83970; 83036; G0463; 99211

== ENCOUNTER 2019-06-21 11:19 | Day surgery (SDC) | payer OTHER ==
--- NOTE | 2019-06-21 07:55 | P.GSHP ---
History of Present Illness H&P Date: 06/21/19 CHIEF COMPLAINT: History of intra-abdominal adhesions HISTORY OF PRESENT ILLNESS: The patient is a 38-year-old female who presents with history of intra-abdominal adhesions from multiple prior surgeries including increasing abdominal pain. She now presents for diagnostic laparoscopy including lysis of adhesions. PAST MEDICAL HISTORY: Please see list. PAST SURGICAL HISTORY: Please see list. MEDICATIONS: Please see list. ALLERGIES: Please see list. SOCIAL HISTORY: No illicit drug use FAMILY HISTORY: No reports of Crohn disease or ulcerative colitis. REVIEW OF ORGAN SYSTEMS: CONSTITUTIONAL: No reports of fevers or chills. GI: Denies any blood in stools or constipation. PHYSICAL EXAM: VITAL SIGNS: Stable GENERAL: Well-developed pleasant and in no acute distress. HEENT: No scleral icterus. Extraocular movements grossly intact. Moist buccal mucosa. NECK: Supple without lymphadenopathy. CHEST: Unlabored respirations. Equal bilateral excursions. CARDIOVASCULAR: Regular rate and rhythm. Distal 2+ pulses. ABDOMEN: Soft, diffuse abdominal tenderness. No peritonitis. MUSCULOSKELETAL: No clubbing, cyanosis, or edema. STUDIES: CT of the abdomen independent review demonstrating long appendix. No bowel obstruction identified. ASSESSMENT: 1. Diffuse abdominal pain. 2. History of multiple abdominal surgeries. 3. Intra-abdominal adhesions. 4. Abnormal CT with long appendix possible chronic appendicitis PLAN: 1. Robotic lysis of adhesions were described in detail including risk of injury to the intestine, need for further surgery, and open technique. Possible appendectomy also reviewed 2. DVT prophylaxis. 3. Antibiotic prophylaxis. Past Medical History Past Medical History: Hypertension, Pneumonia Additional Past Medical History / Comment(s): CHRONIC ULCER'S X25 YEARS:(egd/COLONOSCOPY IN 2019 WAS FIRST EVER THAT WAS NEGATIVE FOR ULCER)LONG AGO . MIGRAINES, ABDOMINAL PAIN. hernia (UMBILICAL, RIGHT INGUINAL) History of Any Multi-Drug Resistant Organisms: None Reported Past Surgical History: Bariatric Surgery, Breast Surgery, Section, Cholecystectomy, Hernia Repair, Orthopedic Surgery, Tonsillectomy Additional Past Surgical History / Comment(s): CONCEPCIÓN-N-Y 2007 ([place] [facility]). BREAST REDUCTION. TUMMY TUCK. INCARCERATED INGUIANAL Hernia repair 08/22/14, "pins and plates in left ankle" Past Anesthesia/Blood Transfusion Reactions: No Reported Reaction, Family History of Problems w/ Anesthesia Additional Past Anesthesia/Blood Transfusion Reaction / Comment(s): MOTHER AWAKENS DURING SURGERY. Past Psychological History: Anxiety, Panic Disorder Additional Psychological History / Comment(s): Pt resides with a roomate and her 16 yr old son. She is independent. Smoking Status: Current every day smoker Past Alcohol Use History: Occasional Additional Past Alcohol Use History / Comment(s): smokes 1/2ppd,started smoking age 19 approx Past Drug Use History: Marijuana Additional Drug Use History / Comment(s): Infrequent use of marijuana - Past Family History Mother Family Medical History: Hypertension Father Family Medical History: Hypertension Brother(s) Family Medical History: No Reported History Medications and Allergies Home Medications Medication Instructions Recorded Confirmed Type amLODIPine [Norvasc] 10 mg PO QAM 03/26/14 06/09/19 History ALPRAZolam [Xanax] 1 mg PO BID PRN 06/10/14 06/09/19 History Butalbit/Acetamin/Caff/Codeine 1 - 2 cap PO Q4HR PRN 03/14/15 06/09/19 History [Fioricet-Cod 59-434-49-30 Cap] Ondansetron Odt [Zofran ODT] 4 mg PO Q8HR PRN #15 tab 06/27/16 06/09/19 Rx HYDROcodone/APAP 7.5-325MG [[place] 1 tab PO Q4H PRN 06/16/17 06/09/19 History 7.5-325] Vortioxetine Hydrobromide 10 mg PO HS 06/16/17 06/09/19 History [Trintellix] Cetirizine HCl [Zyrtec] 10 mg PO DAILY 09/25/18 06/09/19 History Fluticasone Propionate [Flonase 1 - 2 spray EA NOSTRIL DAILY PRN 09/25/18 06/09/19 History Allergy Relief] Lisinopril 40 mg PO DAILY 09/25/18 06/09/19 History busPIRone HCl [Buspar] 5 mg PO BID 09/25/18 06/09/19 History Hydrochlorothiazide [Hydrodiuril] 12.5 mg PO DIRECTED 06/09/19 06/09/19 History Allergies Allergy/AdvReac Type Severity Reaction Status Date / Time sulfamethoxazole Allergy Unknown Verified 06/09/19 15:33 [From Bactrim] Childhood trimethoprim [From Bactrim] Allergy Unknown Verified 06/09/19 15:33 Childhood sumatriptan [From Imitrex] AdvReac Severe Rapid Verified 06/09/19 15:33 Heart Rate
[~2019-06-21 11:19] MED LIST changes: -ACETAMINOPHEN IV (For NPO) 1,000 MG in EMPTY BAG 1 BAG IVPB ONE; +ACETAMINOPHEN TAB 500 MG TAB PO STA; -DEXAMETHASONE SOD PHOSPHATE 10 MG/ML 1 ML VIAL IV ONE; +GABAPENTIN 300 MG CAP PO STA; +HEPARIN SODIUM,PORCINE 5,000 UNIT/ML 1 ML VIAL SQ ONE; -HYDROmorphone 1 MG/ML 1 ML SYRINGE IVP PRN; -LACTATED RINGERS 1,000 ML IV ONE; -MIDAZOLAM 2 MG/2 ML VIAL IV PRN; -ONDANSETRON 4 MG/2 ML VIAL IVP ONE; +Pre Op ABX Message 1 EACH MISC MISCELLANE ONE; -SCOPOLAMINE 1.5MG/72HR PATCH TRANSDERM ONE; -ceFAZolin 2 GM in SODIUM CHLORIDE 0.9% 100 ML IVPB ONE
[2019-06-21] MEDS ORDERED: DEXAMETHASONE SOD PHOSPHATE 10 MG/ML 1 ML VIAL IV ONE (11:40)
[2019-06-21] MEDS ORDERED: LACTATED RINGERS 1,000 ML IV SCH (11:40)
[2019-06-21] MEDS ORDERED: MIDAZOLAM 2 MG/2 ML VIAL IV PRN (11:40)
[2019-06-21] MEDS ORDERED: SCOPOLAMINE 1.5MG/72HR PATCH TRANSDERM ONE (11:40)
[2019-06-21] MEDS ORDERED: ONDANSETRON 4 MG/2 ML VIAL IVP ONE (11:40)
[2019-06-21] MEDS ORDERED: LIDOCAINE 1% 20 ML VIAL (10MG/ML) FOR IV START INTRADERMA ONE (12:00)
[2019-06-21] MEDS ORDERED: fentaNYL (PF) 50 MCG/ML 2 ML AMP IV ONE (12:19)
[2019-06-21] MEDS ORDERED: LIDOCAINE 1%-EPI 1:100,000 20 ML VIAL SQ ONE (12:21)
--- NOTE | 2019-06-21 12:32 | P.ANPRN ---
Procedure Note - Anesthesia - Nerve Block Performed Bilateral Transversus Abdominis Single Time Out Performed: Yes Date of Procedure: 06/21/19 Procedure Start Time: 12: Procedure Stop Time: : Location of Patient: PreOp Indication: Acute Post-Operative Pain, Requested by Surgeon Sedation Type: Sedate with meaningful contact maintained Preparation: Sterile Prep Position: Supine Catheter: None Needle Types: Facet Needle Gauge: 20 Ultrasound used to visualize needle placement: Yes Ultrasound used to observe medication spread: Yes Injectate: 0.5% Ropivacaine (see comment for volume) (30 mls) Blood Aspirated: No Pain Paresthesia on Injection Noted: No Resistance on Injection: Normal Image Stored and Saved: Yes Events: Uneventful and Well Tolerated (4430)
[2019-06-21] MEDS ORDERED: ROCURONIUM BROMIDE 10 MG/ML 10 ML VIAL IV ONE (13:42)
[2019-06-21] MEDS ORDERED: GLYCOPYRROLATE 0.2 MG/ML 2 ML VIAL ONE (13:42)
[2019-06-21] MEDS ORDERED: fentaNYL (PF) 50 MCG/ML 2 ML AMP ONE (13:42)
[2019-06-21] MEDS ORDERED: ROPIVACAINE 5 MG/ML 30 ML VIAL ONE (13:42)
[2019-06-21] MEDS ORDERED: DEXAMETHASONE SOD PHOSPHATE 4 MG/ML 1 ML VIAL ONE (13:42)
[2019-06-21] MEDS ORDERED: MIDAZOLAM 2 MG/2 ML VIAL ONE (13:42)
[2019-06-21] MEDS ORDERED: KETAMINE 10 MG/ML 20 ML VIAL ONE (13:42)
[2019-06-21] MEDS ORDERED: PROPOFOL 10 MG/ML 20 ML VIAL IV ONE (13:42)
[2019-06-21] MEDS ORDERED: NEOSTIGMINE 1 MG/ML 10 ML VIAL ONE (13:42)
[2019-06-21] MEDS ORDERED: LIDOCAINE 1% INJ 10MG/ML (20 ML MDV) ONE (13:42)
[2019-06-21] MEDS ORDERED: LACTATED RINGERS 1,000 ML IV ONE (15:00)
[2019-06-21] MEDS: HYDROmorphone 0.5 MG/0.5 ML SYRINGE IVP PRN ×4 (15:36→16:00)
--- NOTE | 2019-06-21 15:37 | P.OP ---
Date of Procedure: 06/21/19 Description of Procedure: SURGEON: KAITLIN ENRIQUEZ MD PREOPERATIVE DIAGNOSES: 1. Right lower quadrant abdominal pain 2. History of multiple abdominal surgeries 3. History of gastric bypass 4. Morbid obesity versus calories, BMI 38.7 5. Hypertensive heart disease 6. Depressive disorder 7. Chronic pain syndrome 8. Migraine headaches POSTOPERATIVE DIAGNOSES: 1. Right lower quadrant abdominal pain 2. History of multiple abdominal surgeries 3. History of gastric bypass 4. Morbid obesity versus calories, BMI 38.7 5. Hypertensive heart disease 6. Depressive disorder 7. Chronic pain syndrome 8. Migraine headaches 9. Diffuse abdominal wall adhesions greater omentum to the abdominal wall 10. Chronic appendicitis OPERATION: 1. Robotic-assisted da Linnea Xi laparoscopic with extensive lysis of adhesions over 1 hr 2. Robotic-assisted da Linnea Xi laparoscopic appendectomy ESTIMATED BLOOD LOSS: 5 mL. SPECIMENS REMOVED: None. COMPLICATIONS: None. OPERATIVE FINDINGS: 1. No ventral hernias identified. 2. Adhesions along the epigastrium, right upper quarant 3. Interloop adhesions terminal ileum divided 4. 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 Right ovary and fallopian tube within normal limits 6. Anomaly of appendix including abnormal length in patient with right lower quadrant abdominal pain INDICATIONS: The patient is a 38-year-old female who presents with right lower quadrant abdominal pain. Surgical intervention with diagnostic laparoscopy, lysis of adhesions were described. Informed consent was obtained. Robotic assisted laparoscopic approach was described including appendectomy. Benefits and risks of the procedure including but not limited to bleeding, infection, injury to the small bowel was described. Informed consent was obtained. DESCRIPTION OF PROCEDURE: Pre-operatively, the abdomen was marked at location of pain consistent with right lower quadrant abdominal pain. Patient was brought to the operating room, placed in supine position. After general induction, the abdomen had been prepped and draped in standard sterile fashion. The robotic da Linnea XI system was primed. After a timeout protocol was performed, the patient had been prepped and draped in standard sterile fashion. The robot was docked along the left lateral abdomen. The patient was repositioned in with right side up. Please note prior to docking of the robot; however, a 5 mm 0 degrees laparoscopic trocar entry was performed along the left upper quadrant. The abdomen was insufflated to 15 mmHg pressure which she tolerated well. Diagnostic laparoscopy was performed. Dense peritoneal adhesions greater omentum to anterior abdominal wall was found along the midline including the epigastrium and right upper quadrant. Next, 8 mm robotic ports were placed along the left lateral abdominal wall. A 12 mm port was placed along the left lower quadrant. Please note that the ports were placed at least 10 to 15 cm away from the target anatomy. Instruments including graspers, scissors, stapled and vessel sealer were interchanged by the him assistant. I had sat at the console. Initial attention was brought to the greater omental adhesions to the abdominal wall which was divided using blunt dissection including vessel sealer for over one hour for extensive lysis of adhesions. No evidence of recurrent incisional or ventral hernias were identified. The small bowel from the grecia limb to distal ileum was inspected. The small bowel was investigated from the terminal ileum to the ligament of Treitz where the Love defect and jejunojejunostomy mesenteric defects were completely scarred. Dense interloop adhesions were found along the terminal ileum which were divided using scissors sharply. The rest of the small bowel was unremarkable. Attention was brought to the ovary on the right side including fallopian tube which were within normal limits. No cystic lesions were identified along the right ovary or fallopian tube. Separately, the appendix was also investigated which was extremely long and overlapping in the area of pain. A 45 mm blue load was used to divide the base of the appendix after mobilizing using a vessel sealer the meso-appendix. Hemostasis was excellent throughout the entire case. The small bowel was viable. The robot was undocked. All pneumoperitoneum instruments were evacuated from the abdominal cavity. The incisions were reapproximated using 4-0 Monocryl in an interrupted subcuticular fashion. Please note along the trocar sites, local anesthetic was placed as a field block prior to insertion of all instruments. Exofin was applied to the skin. At the end of the procedure needle, sponge, and instrument count had been verified correct by the surgical physician assistant. The patient was transferred to postanesthesia care unit in stable condition. Plan - Discharge Summary New Discharge Prescriptions: Continue amLODIPine [Norvasc] 10 mg PO QAM ALPRAZolam [Xanax] 1 mg PO BID PRN PRN Reason: Anxiety Butalbit/Acetamin/Caff/Codeine [Fioricet-Cod [id number] Cap] 1 - 2 cap PO Q4HR PRN PRN Reason: Migraine Headache Ondansetron Odt [Zofran ODT] 4 mg PO Q8HR PRN #15 tab PRN Reason: Nausea HYDROcodone/APAP 7.5-325MG [[place] 7.5-325] 1 tab PO Q4H PRN PRN Reason: Pain Vortioxetine Hydrobromide [Trintellix] 10 mg PO HS busPIRone HCl [Buspar] 7.5 mg PO BID Cetirizine HCl [Zyrtec] 10 mg PO DAILY Lisinopril 40 mg PO DAILY Fluticasone Propionate [Flonase Allergy Relief] 1 - 2 spray EA NOSTRIL DAILY PRN PRN Reason: Nasal Congestion Hydrochlorothiazide [Hydrodiuril] 12.5 mg PO DIRECTED Discharge Medication List amLODIPine [Norvasc] 10 mg PO QAM 03/26/14 [History] ALPRAZolam [Xanax] 1 mg PO BID PRN 06/10/14 [History] Butalbit/Acetamin/Caff/Codeine [Fioricet-Cod [id number] Cap] 1 - 2 cap PO Q4HR PRN 03/14/15 [History] Ondansetron Odt [Zofran ODT] 4 mg PO Q8HR PRN #15 tab 06/27/16 [Rx] HYDROcodone/APAP 7.5-325MG [[place] 7.5-325] 1 tab PO Q4H PRN 06/16/17 [History] Vortioxetine Hydrobromide [Trintellix] 10 mg PO HS 06/16/17 [History] Cetirizine HCl [Zyrtec] 10 mg PO DAILY 09/25/18 [History] Fluticasone Propionate [Flonase Allergy Relief] 1 - 2 spray EA NOSTRIL DAILY PRN 09/25/18 [History] Lisinopril 40 mg PO DAILY 09/25/18 [History] busPIRone HCl [Buspar] 7.5 mg PO BID 09/25/18 [History] Hydrochlorothiazide [Hydrodiuril] 12.5 mg PO DIRECTED 06/09/19 [History] Follow up Appointment(s)/Referral(s): Kaitlin Enriquez MD [STAFF PHYSICIAN] - 06/29/19 Patient Instructions/Handouts: Lysis of Abdominal Adhesions (DC) Activity/Diet/Wound Care/Special Instructions: No lifting over 10 pounds in 2 weeks until Jul 05. September shower. No bath tub soaks for two weeks until Jul 05 Diet as tolerated. No driving while on narcotics. Use Tylenol and ibuprofen or Aleve scheduled for the next 24-48 hours for best pain relief. Use ice along incisions for the today to prevent swelling. Discharge Disposition: HOME SELF-CARE
[2019-06-21 15:42] VITALS: TEMP 97.9
[2019-06-21 15:55] VITALS: RESP 16
[2019-06-21] MEDS ORDERED: IBUPROFEN 200 MG TAB PO ONE (16:28)
[2019-06-21 16:52] VITALS: BP 148/89; PULSE 65
== END 2019-06-21 17:10 | disposition home or self-care (01) ==
LOC: OR 11:19
PROVIDERS: ATTEND Surgery Plastic and Reconstructive Surgery
DX: K36 Other appendicitis (principal); K66.0 Peritoneal adhesions (postprocedural) (postinfection); Z98.84 Bariatric surgery status; E66.01 Morbid (severe) obesity due to excess calories; Z68.38 Body mass index [BMI] 38.0-38.9, adult; I11.9 Hypertensive heart disease without heart failure; F32.9 Major depressive disorder, single episode, unspecified; G89.4 Chronic pain syndrome; G43.909 Migraine, unspecified, not intractable, without status migrainosus
CPT/HCPCS: 64488; 44970; 49329; J2250; J1644; J1100 ×2; J2710; J0690; J2405; J2001; J3010; J2795; J2704; J1170; 88304

== ENCOUNTER 2019-06-26 08:35 | Inpatient (IN) | payer OTHER ==
[2019-06-26] MEDS ORDERED: HYDROmorphone 1 MG/ML 1 ML SYRINGE IVP STA (08:50)
[2019-06-26] MEDS ORDERED: ONDANSETRON 4 MG/2 ML VIAL IVP STA (08:50)
[2019-06-26] MEDS ORDERED: SODIUM CHLORIDE 0.9% 1,000 ML IV STA (08:50)
--- NOTE | 2019-06-26 08:53 | ED ---
Abdominal Pain HPI - General Chief Complaint: Abdominal Pain Stated Complaint: Abd Pain Time Seen by Provider: 06/26/19 08:41 Source: patient, RN notes reviewed Mode of arrival: wheelchair Limitations: no limitations - History of Present Illness Initial Comments: 38-year-old female presents emergency Department with chief complaint of severe abdominal pain. Patient states that she had surgery by Dr. Enriquez on Friday and which she had scar tissue/adhesions removed, appendectomy. Patient states that the pain worsened on Friday and has progressively worsened the point where she cannot tolerate the pain. She was discharged on Motrin. She states her abdomen is distended, and has noticed severe bruising throughout her abdomen. Patient states the pain is worse in the right lower quadrant. She states that she has not had a bowel movement states that she is passing gas. Patient denies any difficulty urinating and no dysuria. Patient reports fever 101 at home. She did contact her surgeon yesterday in which the office advised her to come emergency department. Patient denies any current chest pain or shortness breath. States pain is unbearable - Related Data Home Medications Medication Instructions Recorded Confirmed amLODIPine [Norvasc] 10 mg PO QAM 03/26/14 06/21/19 ALPRAZolam [Xanax] 1 mg PO BID PRN 06/10/14 06/21/19 Butalbit/Acetamin/Caff/Codeine 1 - 2 cap PO Q4HR PRN 03/14/15 06/21/19 [Fioricet-Cod [id number] Cap] HYDROcodone/APAP 7.5-325MG [[place] 1 tab PO Q4H PRN 06/16/17 06/21/19 7.5-325] Vortioxetine Hydrobromide 10 mg PO HS 06/16/17 06/21/19 [Trintellix] Cetirizine HCl [Zyrtec] 10 mg PO DAILY 09/25/18 06/21/19 Fluticasone Propionate [Flonase 1 - 2 spray EA NOSTRIL DAILY PRN 09/25/18 06/21/19 Allergy Relief] Lisinopril 40 mg PO DAILY 09/25/18 06/21/19 busPIRone HCl [Buspar] 7.5 mg PO BID 09/25/18 06/21/19 Hydrochlorothiazide [Hydrodiuril] 12.5 mg PO DIRECTED 06/09/19 06/21/19 Previous Rx's Medication Instructions Recorded Ondansetron Odt [Zofran ODT] 4 mg PO Q8HR PRN #15 tab 06/27/16 Ibuprofen [Motrin] 600 mg PO Q8HR PRN #30 tab 06/21/19 Omeprazole [PriLOSEC] 40 mg PO DAILY #14 cap 06/21/19 Allergies Allergy/AdvReac Type Severity Reaction Status Date / Time sulfamethoxazole Allergy Unknown Verified 06/26/19 08:40 [From Bactrim] Childhood trimethoprim [From Bactrim] Allergy Unknown Verified 06/26/19 08:40 Childhood sumatriptan [From Imitrex] AdvReac Severe Rapid Verified 06/26/19 08:40 Heart Rate Review of Systems ROS Statement: Those systems with pertinent positive or pertinent negative responses have been documented in the HPI. ROS Other: All systems not noted in ROS Statement are negative. Past Medical History Past Medical History: Hypertension, Pneumonia Additional Past Medical History / Comment(s): CHRONIC ULCER'S X25 YEARS:(egd/COLONOSCOPY IN 2019 WAS FIRST EVER THAT WAS NEGATIVE FOR ULCER)LONG AGO . MIGRAINES, ABDOMINAL PAIN. hernia (UMBILICAL, RIGHT INGUINAL) History of Any Multi-Drug Resistant Organisms: None Reported Past Surgical History: Bariatric Surgery, Breast Surgery, Section, Cholecystectomy, Hernia Repair, Orthopedic Surgery, Tonsillectomy Additional Past Surgical History / Comment(s): CONCE[facility]N-[facility] 2007 ([facility]). BREAST REDUCTION. TUMMY TUCK. INCARCERATED INGUIANAL Hernia repair 08/22/14, "pins and plates in left ankle" Past Anesthesia/Blood Transfusion Reactions: No Reported Reaction, Family History of Problems w/ Anesthesia Additional Past Anesthesia/Blood Transfusion Reaction / Comment(s): MOTHER AWAKENS DURING SURGERY. Past Psychological History: Anxiety, Panic Disorder Smoking Status: Current every day smoker Past Alcohol Use History: Occasional Past Drug Use History: Marijuana - Past Family History Mother Family Medical History: Hypertension Father Family Medical History: Hypertension Brother(s) Family Medical History: No Reported History General Exam Limitations: no limitations General appearance: alert, in no apparent distress Head exam: Present: atraumatic, normocephalic, normal inspection Neck exam: Present: normal inspection. Absent: tenderness, meningismus, l ymphadenopathy Respiratory exam: Present: normal lung sounds bilaterally. Absent: respiratory distress, wheezes, rales, rhonchi, stridor Cardiovascular Exam: Present: regular rate, normal rhythm, normal heart sounds. Absent: systolic murmur, diastolic murmur, rubs, gallop, clicks GI/Abdominal exam: Present: distended, tenderness, rigid, normal bowel sounds, other (Diffuse ecchymosis noted). Absent: soft, guarding, rebound Back exam: Absent: CVA tenderness (R), CVA tenderness (L) Neurological exam: Present: alert, oriented X3, CN II-XII intact Skin exam: Present: warm, dry, intact, normal color. Absent: rash Course Vital Signs 06/26/19 06/26/19 06/26/19 08:37 08:40 09:40 Temperature 98.5 F Pulse Rate 82 77 Respiratory 16 20 20 Rate Blood Pressure 141/96 139/81 O2 Sat by Pulse 99 100 Oximetry Medical Decision Making - Medical Decision Making 38-year-old female presented for living status postsurgery. Case discussed with Dr. Enriquez who will observe the patient for pain control, IV fluid hydration. CT shows extensive fluid collection though no definite abscess. Patient hemoglobin is stable, vitals otherwise stable. - Lab Data Result diagrams: 06/26/19 09:05 06/26/19 09:05 Lab Results 06/26/19 06/26/19 06/26/19 Range/Units 09:05 09:05 09:05 WBC 10.0 (3.8-10.6) k/uL RBC 4.29 (3.80-5.40) m/uL Hgb 11.8 (11.4-16.0) gm/dL Hct 37.1 (34.0-46.0) % MCV 86.5 (80.0-100.0) fL MCH 27.6 (25.0-35.0) pg MCHC 32.0 (31.0-37.0) g/dL RDW 14.4 (11.5-15.5) % Plt Count 416 (150-450) k/uL Neutrophils % 82 % Lymphocytes % 6 % Monocytes % 4 % Eosinophils % 4 % Basophils % 1 % Neutrophils # 8.2 H (1.3-7.7) k/uL Lymphocytes # 0.6 L (1.0-4.8) k/uL Monocytes # 0.4 (0-1.0) k/uL Eosinophils # 0.4 (0-0.7) k/uL Basophils # 0.1 (0-0.2) k/uL PT (9.0-12.0) sec INR (<1.2) APTT (22.0-30.0) sec Sodium 138 (137-145) mmol/L Potassium 3.4 L (3.5-5.1) mmol/L Chloride 104 (98-107) mmol/L Carbon Dioxide 25 (22-30) mmol/L Anion Gap 9 mmol/L BUN 9 (7-17) mg/dL Creatinine 0.63 (0.52-1.04) mg/dL Est GFR (CKD-EPI)AfAm >90 (>60 ml/min/1.73 sqM) Est GFR (CKD-EPI)NonAf >90 (>60 ml/min/1.73 sqM) Glucose 90 (74-99) mg/dL Plasma Lactic Acid Gene 1.5 (0.7-2.0) mmol/L Calcium 9.2 (8.4-10.2) mg/dL Total Bilirubin 1.1 (0.2-1.3) mg/dL AST 20 (14-36) U/L ALT 13 (4-34) U/L Alkaline Phosphatase 82 (38-126) U/L Total Protein 7.0 (6.3-8.2) g/dL Albumin 3.9 (3.5-5.0) g/dL Amylase 49 (30-110) U/L Lipase 63 (23-300) U/L Urine Color Urine Appearance (Clear) Urine pH (5.0-8.0) Ur Specific [place] (1.001-1.035) Urine Protein (Negative) Urine Glucose (UA) (Negative) Urine Ketones (Negative) Urine Blood (Negative) Urine Nitrite (Negative) Urine Bilirubin (Negative) Urine Urobilinogen (<2.0) mg/dL Ur Leukocyte Esterase (Negative) Urine RBC (0-5) /hpf Urine WBC (0-5) /hpf Ur Squamous Epith Cells (0-4) /hpf Urine Bacteria (None) /hpf Urine Mucus (None) /hpf 06/26/19 06/26/19 Range/Units 09:05 09:05 WBC (3.8-10.6) k/uL RBC (3.80-5.40) m/uL Hgb (11.4-16.0) gm/dL Hct (34.0-46.0) % MCV (80.0-100.0) fL MCH (25.0-35.0) pg MCHC (31.0-37.0) g/dL RDW (11.5-15.5) % Plt Count (150-450) k/uL Neutrophils % % Lymphocytes % % Monocytes % % Eosinophils % % Basophils % % Neutrophils # (1.3-7.7) k/uL Lymphocytes # (1.0-4.8) k/uL Monocytes # (0-1.0) k/uL Eosinophils # (0-0.7) k/uL Basophils # (0-0.2) k/uL PT 9.6 (9.0-12.0) sec INR 0.9 (<1.2) APTT 22.9 (22.0-30.0) sec Sodium (137-145) mmol/L Potassium (3.5-5.1) mmol/L Chloride (98-107) mmol/L Carbon Dioxide (22-30) mmol/L Anion Gap mmol/L BUN (7-17) mg/dL Creatinine (0.52-1.04) mg/dL Est GFR (CKD-EPI)AfAm (>60 ml/min/1.73 sqM) Est GFR (CKD-EPI)NonAf (>60 ml/min/1.73 sqM) Glucose (74-99) mg/dL Plasma Lactic Acid Gene (0.7-2.0) mmol/L Calcium (8.4-10.2) mg/dL Total Bilirubin (0.2-1.3) mg/dL AST (14-36) U/L ALT (4-34) U/L Alkaline Phosphatase (38-126) U/L Total Protein (6.3-8.2) g/dL Albumin (3.5-5.0) g/dL Amylase (30-110) U/L Lipase (23-300) U/L Urine Color Yellow Urine Appearance Cloudy H (Clear) Urine pH 6.0 (5.0-8.0) Ur Specific [place] 1.049 H (1.001-1.035) Urine Protein 1+ H (Negative) Urine Glucose (UA) Negative (Negative) Urine Ketones 2+ H (Negative) Urine Blood Negative (Negative) Urine Nitrite Negative (Negative) Urine Bilirubin 1+ H (Negative) Urine Urobilinogen 3.0 (<2.0) mg/dL Ur Leukocyte Esterase Negative (Negative) Urine RBC 2 (0-5) /hpf Urine WBC 6 H (0-5) /hpf Ur Squamous Epith Cells 60 H (0-4) /hpf Urine Bacteria Few H (None) /hpf Urine Mucus Moderate H (None) /hpf Disposition Clinical Impression: Abdominal pain, History of abdominal surgery, Dehydration Disposition: ADMITTED IP TO THIS HOSP Condition: Fair Referrals: Pedro Luis Mandel MD [Primary Care Provider] - 1-2 days
[2019-06-26 09:31] LABS: Basophils # (A) 0.1 k/uL (0-0.2); Basophils % (A) 1 %; Eosinophils # (A) 0.4 k/uL (0-0.7); Eosinophils % (A) 4 %; HCT 37.1 % (34.0-46.0); HGB 11.8 gm/dL (11.4-16.0); Lymphocytes # (A) 0.6 k/uL (1.0-4.8); Lymphocytes % (A) 6 %; MCH 27.6 pg (25.0-35.0); MCV 86.5 fL (80.0-100.0); Mean Platelet Volume 7.4; Monocytes # (A) 0.4 k/uL (0-1.0); Monocytes % (A) 4 %; Neutrophils # (A) 8.2 k/uL (1.3-7.7); Neutrophils % (A) 82 %; Platelet Count 416 k/uL (150-450); RBC 4.29 m/uL (3.80-5.40); RDW 14.4 % (11.5-15.5)
[2019-06-26 09:35] LABS: ALT 13 U/L (4-34); AST 20 U/L (14-36); African American GFR (CKD) >90 (>60 ml/min/1.73 sqM); Albumin 3.9 g/dL (3.5-5.0); Alkaline Phosphatase 82 U/L (38-126); Amylase 49 U/L (30-110); Anion Gap 9 mmol/L; Blood Urea Nitrogen 9 mg/dL (7-17); Calcium 9.2 mg/dL (8.4-10.2); Carbon Dioxide 25 mmol/L (22-30); Chloride 104 mmol/L (98-107); Glucose 90 mg/dL (74-99); INR 0.9 (<1.2); Non-African American GFR(CKD) >90 (>60 ml/min/1.73 sqM); Partial Thromboplastin Time 22.9 sec (22.0-30.0); Potassium 3.4 mmol/L (3.5-5.1); Prothrombin Time 9.6 sec (9.0-12.0); Sodium 138 mmol/L (137-145); Total Bilirubin 1.1 mg/dL (0.2-1.3)
[2019-06-26 10:05] LABS: Appearance,Urine Cloudy (Clear); Bacteria,Urine Few /hpf; Bilirubin,Urine 1+ (Negative); Blood,Urine Negative (Negative); Color,Urine Yellow; Glucose,Urine (UA) Negative (Negative); Ketones,Urine 2+ (Negative); Leukocyte Esterase,Urine Negative (Negative); Mucus,Urine Moderate /hpf; Nitrite,Urine Negative (Negative); Protein,Urine 1+ (Negative); RBC,Urine 2 /hpf (0-5); Squamous Epithelial Cell,Urine 60 /hpf (0-4); WBC,Urine 6 /hpf (0-5)
--- NOTE | 2019-06-26 10:40 | CT ---
EXAMINATION TYPE: CT abdomen pelvis w con DATE OF EXAM: 06/26/2019 REFERENCE: Previous study dated 06/08/2019. HISTORY: Status post surgery, abdominal pain HISTORY: severe abd pain, post op appendectomy and adhesion removal on 06-21-2019 CT DLP: 1055.4 mGy Automated exposure control for dose reduction was used. TECHNIQUE: Helical acquisition through the abdomen and pelvis was obtained following the oral ingesti on of without Oral Contrast and following intravenous administration of 100 mL of Isovue 300. The rogers a was reformatted in axial, coronal and sagittal projections. FINDINGS: There is atelectasis in the dependent portions of both lungs. There is no pleural or peric ardial fluid. The heart is mildly enlarged. Within the abdomen, there is been previous gastric surgery. The gallbladder is been removed. Liver and spleen are normal. Both adrenal glands are normal. There is scarring in the lower pole of the left kidney. This is stable. There is a 1.4 cm cyst in the right kidney. This is stable. There is a 5 mm low attenuating lesion in the mid polar region of the left kidney. This was present previously. There are areas within the left kidney that do not enhance as much of the remainder the kidney. This was also present previously and may relate to old reflux di sease. The pancreas is unremarkable. There is no significant retroperitoneal, iliac or inguinal adenopathy. The bladder is not distended. The uterus is unremarkable. The right fallopian tube and ovary appear prominent. There is follicular change in the left ovary. The colon is unremarkable. The appendix is not visualized. There appears to have been a distal small bowel resection. Small bowel caliber is within normal limit s. There is some free fluid within the right side of the abdomen and some interloop fluid. There is a ma rked inflammatory response in the anterior fat of the abdomen. No abscess is identified. No free air is seen. There is hypertrophic spondylosis in the lower dorsal spine. IMPRESSION: 1. EXTENSIVE POSTSURGICAL CHANGE. 2. STRANDING IN THE PERITONEAL FAT AND SOME FREE FLUID WELL INTERLOOP FLUID MAY BE POSTSURGICAL CHANGE. I DO NOT SEE A DEFINITE DRAINABLE ABSCESS. 3. SCARRING IN THE LEFT KIDNEY WITH SOME PATCHY AREAS OF DECREASED FUNCTION WITHIN THE LEFT KIDNEY, U NCHANGED FROM PREVIOUS.
[2019-06-26 10:41] LABS: Specific Gravity,Urine 1.049 (1.001-1.035)
[2019-06-26] MEDS ORDERED: SODIUM CHLORIDE 0.9% 1,000 ML IV ONE (10:43)
[2019-06-26] MEDS ORDERED: NALOXONE 0.4 MG/ML 1 ML VIAL IV PRN (10:50)
[2019-06-26] MEDS ORDERED: KETOROLAC 30 MG/ML 1 ML VIAL IVP PRN (10:50)
[2019-06-26] MEDS ORDERED: ONDANSETRON 4 MG/2 ML VIAL IVP PRN (10:50)
[2019-06-26] MEDS: HYDROcodone/APAP 7.5-325MG 1 EACH TAB PO PRN ×2 (12:36→18:39)
[2019-06-26] MEDS: SODIUM CHLORIDE 0.9% 1,000 ML IV SCH ×2 (13:22→21:33)
[2019-06-26] MEDS ORDERED: ALBUTEROL NEBULIZED 2.5 MG/3 ML INHALATION PRN (18:14)
[2019-06-26] MEDS ORDERED: BUTALB/APAP/CAFF 50-325-40MG TAB PO PRN (18:14)
--- NOTE | 2019-06-26 18:19 | P.GSHP ---
History of Present Illness H&P Date: 06/26/19 CHIEF COMPLAINT: Abdominal pain HISTORY OF PRESENT ILLNESS: The patient is a 38 year old female with multiple medical comorbidities including morbid obesity, hypertensive heart disease, chronic pain syndrome, gastroesophageal reflux disease, history of multiple abdominal surgeries who is status post appendectomy including lysis of adhesions 06/21/2019. She presents postop day 5. She has history of chronic abdominal pain. Additionally, she takes chronic pain meds which at the time of her ope ration she had not filled her prescription. The last 5 days she has been without her chronic pain meds and came to the hospital due to moderate severe post operative pain. She reports her pain is sharp and burning in nature mostly localized to the right lower quadrant. She reports bruising along the abdomen. She's not had a bowel movement in a week. She is passing flatus. Secondary to her moderate to severe abdominal pain including postsurgery status she has been admitted. PAST MEDICAL HISTORY: See list. PAST SURGICAL HISTORY: See list. MEDICATIONS: See list. ALLERGIES: See list. SOCIAL HISTORY: See list. FAMILY HISTORY: See list. REVIEW OF ORGAN SYSTEMS: CONSTITUTIONAL: No fevers or chills. Intentional weight loss over 300 pounds following gastric bypass surgery. EYES: Denies any trouble with vision. No glasses. HEENT: No difficulties with hearing. No nosebleeds. No difficulty swallowing. RESPIRATORY: Denies pneumonia. Has asthma CARDIOVASCULAR: Denies any chest pain, palpitations, or recent heart attacks. Has hypertension GASTROINTESTINAL: History of gastric bypass including multiple abdominal surgeries and abdominal adhesions GENITOURINARY: Denies any blood in urine or increased urinary frequency. No periods in over a year. NEUROLOGICAL: Denies any numbness or tingling along the distal extremities. Has chronic migraines. MUSCULOSKELETAL: Has back pain, stiffness or joint arthritis. Has chronic pain syndrome SKIN: No current skin cancer. No rash. PSYCHIATRIC: Has depression. No suicidal thoughts. ENDOCRINE: Denies current thyroid disorders. Denies any blood sugar glucose intolerance. HEME/LYMPHATIC: Denies any lumps and bumps around the neck. No recent deep venous thrombosis. ALLERGY/IMMUNOLOGY: No immunoglobulin therapy. No immune deficiencies. BREAST: Denies current breast lumps, pain or nipple discharge. Has history of breast reduction. PHYSICAL EXAM: VITALS: Reviewed CONSTITUTIONAL: Well developed and in no acute distress. EYES: Conjuctivae without sclera icterus. Pupils are equally round and reactive to light. Extraocular movements grossly intact. HEAD, EARS, NOSE, THROAT: Moist buccal mucosa. Head is atraumatic, no rmocephalic. Hears conversational speech. No nasal drainage. NECK: Supple. No JV distention. No thyroidomegaly. RESPIRATORY: Non-labored respirations and equal bilateral excursions. No gross wheezes. CARDIOVASCULAR: Regular rate and rhythm. Extremities without moderate edema. Palpable 2+ radial pulses. ABDOMEN: Soft. No peritonitis. Generalized tenderness with increased tenderness right lower quadrant. Incisions clean dry and intact. Edema along the lower abdomen. LYMPH: No neck lymphadenopathy. No axillary lymphadenopathy. MUSCULOSKELETAL: Nail and fingers with good capillary refill. SKIN: Warm and well perfused with good skin turgor. NEUROLOGIC: Cranial nerves I through XII grossly intact. Sensation upper and extremities intact. No focal or lateralizing signs. PSYCH: Appropriate affect. Alert and oriented to person, place and time. Displays appropriate insight. CLINCAL LABS: Reviewed. WBC normal. IMAGING: Independently reviewed CT of the abdomen and pelvis demonstrating post surgical changes along the abdominal wall and edema. No free air. No bowel obstruction. RADIOLOGY: Report reviewed with localized fluid right lower quadrant ASSESSMENT: 1. Postoperative pain, uncontrolled 2. History of chronic abdominal pain and chronic pain syndrome 3. Peritoneal adhesions 4. History of multiple abdominal surgeries 5. Medical noncompliance of medication regimen PLAN: 1. Overall her presentation is consistent with noncompliance to her chronic pain needs which is exacerbated by recent surgery. 2. Most her pain including spasms that are intermittent and severe. Will start Bentyl. 3. She also reports low appetite. We'll adjust diet from regular to clear liquid diet. 4. She has inadequate pain control with narcotics. We'll add Toradol with protection of her gastric pouch using Protonix. 5. She has not had a bowel movement over 1 week. Will start laxatives including lactulose and Colace 6. Anticipated disposition in 3 - 4 days. Past Medical History Past Medical History: Hypertension, Pneumonia Additional Past Medical History / Comment(s): CHRONIC ULCER'S X25 YEARS :(egd/COLONOSCOPY IN 2019 WAS FIRST EVER THAT WAS NEGATIVE FOR ULCER)LONG AGO . MIGRAINES, ABDOMINAL PAIN. hernia (UMBILICAL, RIGHT INGUINAL) History of Any Multi-Drug Resistant Organisms: None Reported Past Surgical History: Bariatric Surgery, Breast Surgery, Section, Cholecystectomy, Hernia Repair, Orthopedic Surgery, Tonsillectomy Additional Past Surgical History / Comment(s): CONCE[facility]N-[facility] 2007 ([place] [facility]). BREAST REDUCTION. TUMMY TUCK. INCARCERATED INGUIANAL Hernia repair 08/22/14, "pins and plates in left ankle" Past Anesthesia/Blood Transfusion Reactions: No Reported Reaction, Family History of Problems w/ Anesthesia Additional Past Anesthesia/Blood Transfusion Reaction / Comment(s): MOTHER AWAKENS DURING SURGERY. Past Psychological History: Anxiety, Panic Disorder Additional Psychological History / Comment(s): Pt resides with a roomate and her 16 yr old son. She is independent. Smoking Status: Current every day smoker Past Alcohol Use History: Occasional Additional Past Alcohol Use History / Comment(s): smokes 1/2ppd,started smoking age 19 approx Past Drug Use History: Marijuana Additional Drug Use History / Comment(s): Infrequent use of marijuana - Past Family History Mother Family Medical History: Hypertension Father Family Medical History: Hypertension Brother(s) Family Medical History: No Reported History Medications and Allergies Home Medications Medication Instructions Recorded Confirmed Type amLODIPine [Norvasc] 10 mg PO DAILY 03/26/14 06/26/19 History HYDROcodone/APAP 7.5-325MG [[place] 1 tab PO BID PRN 06/16/17 06/26/19 History 7.5-325] Vortioxetine Hydrobromide 10 mg PO DAILY 06/16/17 06/26/19 History [Trintellix] Cetirizine HCl [Zyrtec] 10 mg PO DAILY 09/25/18 06/26/19 History Fluticasone Propionate [Flonase 2 spray EA NOSTRIL DAILY 09/25/18 06/26/19 Hist ory Allergy Relief] Lisinopril 40 mg PO DAILY 09/25/18 06/26/19 History Ibuprofen [Motrin] 600 mg PO Q8HR PRN #30 tab 06/21/19 06/26/19 Rx ALPRAZolam [Xanax] 0.5 mg PO BID PRN 06/26/19 06/26/19 History Albuterol Inhaler [Ventolin Hfa 2 puff INHALATION RT-QID PRN 06/26/19 06/26/19 History Inhaler] Butalb/APAP/Caff 50-325-40Mg 2 tab PO Q4H PRN 06/26/19 06/26/19 History [Fioricet 50-325-40] Hydrochlorothiazide 25 mg PO DAILY 06/26/19 06/26/19 History busPIRone HCL [Buspar] 7.5 mg PO BID PRN 06/26/19 06/26/19 History medroxyPROGESTERone [Depo-Provera] 150 mg IM Q84D 06/26/19 06/26/19 History Allergies Allergy/AdvReac Type Severity Reaction Status Date / Time sulfamethoxazole Allergy Unknown Verified 06/26/19 08:40 [From Bactrim] Childhood trimethoprim [From Bactrim] Allergy Unknown Verified 06/26/19 08:40 Childhood sumatriptan [From Imitrex] AdvReac Severe Rapid Verified 06/26/19 08:40 Heart Rate Surgical - Exam Vital Signs Temp Pulse Resp BP Pulse Ox 98.5 F 82 16 141/96 99 06/26/19 08:37 06/26/19 08:37 06/26/19 08:37 06/26/19 08:37 06/26/19 08:37 Results - Labs 06/27/19 09:41 06/27/19 09:41 Abnormal Lab Results - Last 24 Hours (Table) 06/26/19 06/26/19 06/26/19 Range/Units 09:05 09:05 09:05 Neutrophils # 8.2 H (1.3-7.7) k/uL Lymphocytes # 0.6 L (1.0-4.8) k/uL Potassium 3.4 L (3.5-5.1) mmol/L Urine Appearance Cloudy H (Clear) Ur Specific [place] 1.049 H (1.001-1.035) Urine Protein 1+ H (Negative) Urine Ketones 2+ H (Negative) Urine Bilirubin 1+ H (Negative) Urine WBC 6 H (0-5) /hpf Ur Squamous Epith Cells 60 H (0-4) /hpf Urine Bacteria Few H (None) /hpf Urine Mucus Moderate H (None) /hpf Diabetes panel 06/26/19 Range/Units 09:05 Sodium 138 (137-145) mmol/L Potassium 3.4 L (3.5-5.1) mmol/L Chloride 104 (98-107) mmol/L Carbon Dioxide 25 (22-30) mmol/L BUN 9 (7-17) mg/dL Creatinine 0.63 (0.52-1.04) mg/dL Glucose 90 (74-99) mg/dL Calcium 9.2 (8.4-10.2) mg/dL AST 20 (14-36) U/L ALT 13 (4-34) U/L Alkaline Phosphatase 82 (38-126) U/L Total Protein 7.0 (6.3-8.2) g/dL Albumin 3.9 (3.5-5.0) g/dL Calcium panel 06/26/19 Range/Units 09:05 Calcium 9.2 (8.4-10.2) mg/dL Albumin 3.9 (3.5-5.0) g/dL Pituitary panel 06/26/19 Range/Units 09:05 Sodium 138 (137-145) mmol/L Potassium 3.4 L (3.5-5.1) mmol/L Chloride 104 (98-107) mmol/L Carbon Dioxide 25 (22-30) mmol/L BUN 9 (7-17) mg/dL Creatinine 0.63 (0.52-1.04) mg/dL Glucose 90 (74-99) mg/dL Calcium 9.2 (8.4-10.2) mg/dL Adrenal panel 06/26/19 Range/Units 09:05 Sodium 138 (137-145) mmol/L Potassium 3.4 L (3.5-5.1) mmol/L Chloride 104 (98-107) mmol/L Carbon Dioxide 25 (22-30) mmol/L BUN 9 (7-17) mg/dL Creatinine 0.63 (0.52-1.04) mg/dL Glucose 90 (74-99) mg/dL Calcium 9.2 (8.4-10.2) mg/dL Total Bilirubin 1.1 (0.2-1.3) mg/dL AST 20 (14-36) U/L ALT 13 (4-34) U/L Alkaline Phosphatase 82 (38-126) U/L Total Protein 7.0 (6.3-8.2) g/dL Albumin 3.9 (3.5-5.0) g/dL Assessment and Plan (1) Generalized abdominal cramping Current Visit: Yes Status: Acute Code(s): R10.84 - GENERALIZED ABDOMINAL PAIN SNOMED Code(s): 701388837 (2) Constipation Current Visit: Yes Status: Acute Code(s): K59.00 - CONSTIPATION, UNSPECIFIED SNOMED Code(s): 04338366 (3) Chronic pain syndrome Current Visit: Yes Status: Acute Code(s): G89.4 - CHRONIC PAIN SYNDROME SNOMED Code(s): 374760631 (4) Post-op pain Current Visit: No Status: Acute Code(s): G89.18 - OTHER ACUTE POSTPROCEDURAL PAIN SNOMED Code(s): 551909331 (5) Gastric bypass status for obesity Current Visit: No Status: Chronic Code(s): Z98.84 - BARIATRIC SURGERY STATUS SNOMED Code(s): 811516162 (6) Intestinal adhesions Current Visit: No Status: Chronic Code(s): K66.0 - PERITONEAL ADHESIONS (POSTPROCEDURAL) (POSTINFECTION) SNOMED Code(s): 48918474 (7) Noncompliance with medication regimen Current Visit: Yes Status: Acute Code(s): Z91.14 - PATIENT'S OTHER NONCOMPLIANCE WITH MEDICATION REGIMEN SNOMED Code(s): 825526610
[2019-06-26] MEDS: LACTULOSE 20 GM/30 ML CUP PO SCH (18:36)
[2019-06-26] MEDS: DICYCLOMINE 20 MG TAB PO SCH ×2 (20:05→23:55)
[2019-06-26] MEDS: DOCUSATE 100 MG CAP PO SCH (21:27)
[2019-06-26] MEDS: busPIRone HCl 5 MG TAB PO PRN (21:28)
[2019-06-26] MEDS: KETOROLAC 30 MG/ML 1 ML VIAL IVP SCH (23:54)
[2019-06-26] MEDS: ALPRAZolam 0.5 MG TAB PO PRN (23:54)
[2019-06-27] MEDS: HYDROcodone/APAP 7.5-325MG 1 EACH TAB PO PRN ×3 (02:39→17:48)
[2019-06-27] MEDS: SODIUM CHLORIDE 0.9% 1,000 ML IV SCH ×2 (02:40→17:49)
[2019-06-27] MEDS: KETOROLAC 30 MG/ML 1 ML VIAL IVP SCH ×3 (06:19→17:47)
[2019-06-27] MEDS: PANTOPRAZOLE 40 MG/10 ML VIAL IVP SCH (09:18)
[2019-06-27] MEDS: LACTULOSE 20 GM/30 ML CUP PO SCH ×2 (09:18→21:01)
[2019-06-27] MEDS: busPIRone HCl 5 MG TAB PO PRN ×2 (09:20→21:01)
[2019-06-27] MEDS: DOCUSATE 100 MG CAP PO SCH ×2 (09:20→21:01)
[2019-06-27] MEDS: VORTIOXETINE HYDROBROMIDE 10 MG TABLET PO SCH (09:21)
[2019-06-27] MEDS: LISINOPRIL 20 MG TAB PO SCH (09:22)
[2019-06-27] MEDS: amLODIPine 10 MG TAB PO SCH (09:22)
[2019-06-27] MEDS: HYDROCHLOROTHIAZIDE 25 MG TAB PO SCH (09:22)
[2019-06-27] MEDS: LORATADINE 10 MG TAB PO SCH (09:22)
[2019-06-27] MEDS: DICYCLOMINE 20 MG TAB PO SCH ×4 (09:22→23:13)
[2019-06-27] MEDS: FLUTICASONE 50MCG/SPRAY NASAL 16GM EA NOSTRIL SCH (10:08)
[2019-06-27 10:11] LABS: Basophils # (A) 0.1 k/uL (0-0.2); Basophils % (A) 1 %; Eosinophils # (A) 0.3 k/uL (0-0.7); Eosinophils % (A) 3 %; HCT 32.6 % (34.0-46.0); HGB 10.4 gm/dL (11.4-16.0); Lymphocytes # (A) 0.7 k/uL (1.0-4.8); Lymphocytes % (A) 8 %; MCH 28.1 pg (25.0-35.0); MCHC 31.9 g/dL (31.0-37.0); MCV 88.2 fL (80.0-100.0); Mean Platelet Volume 7.3; Monocytes # (A) 0.5 k/uL (0-1.0); Monocytes % (A) 6 %; Neutrophils # (A) 6.7 k/uL (1.3-7.7); Neutrophils % (A) 79 %; Platelet Count 330 k/uL (150-450); RDW 14.2 % (11.5-15.5); WBC 8.4 k/uL (3.8-10.6)
[2019-06-27 10:18] LABS: African American GFR (CKD) >90 (>60 ml/min/1.73 sqM); Anion Gap 8 mmol/L; Blood Urea Nitrogen 4 mg/dL (7-17); Calcium 8.2 mg/dL (8.4-10.2); Carbon Dioxide 22 mmol/L (22-30); Chloride 107 mmol/L (98-107); Glucose 91 mg/dL (74-99); Non-African American GFR(CKD) >90 (>60 ml/min/1.73 sqM); Potassium 3.6 mmol/L (3.5-5.1); Sodium 137 mmol/L (137-145)
[2019-06-27] MEDS: ALPRAZolam 0.5 MG TAB PO PRN ×2 (11:41→23:12)
--- NOTE | 2019-06-27 12:20 | P.PN ---
Subjective Progress Note Date: 06/27/19 CHIEF COMPLAINT: Abdominal pain HISTORY OF PRESENT ILLNESS: The patient is a 38 year old female with multiple medical comorbidities including morbid obesity, hypertensive heart disease, chronic pain syndrome, gastroesophageal reflux disease, history of multiple abdominal surgeries who is status post appendectomy including lysis of adhesions 06/21/2019. She had a large bowel movement with cathartics. She is passing flatus. She still reports moderate pain. ROS: No fevers or chills. Having bowel movements. No productive sputum. PHYSICAL EXAM: VITALS: Reviewed CONSTITUTIONAL: Well developed and in no acute distress. EYES: Conjuctivae without sclera icterus. Pupils are equally round and reactive to light. Extraocular movements grossly intact. HEAD, EARS, NOSE, THROAT: Moist buccal mucosa. Head is atraumatic, normocephalic. Hears conversational speech. No nasal drainage. RESPIRATORY: Non-labored respirations and equal bilateral excursions. No gross wheezes. CARDIOVASCULAR: Regular rate and rhythm. Extremities without moderate edema. Palpable 2+ radial pulses. ABDOMEN: Soft. Generalized tenderness without peritonitis MUSCULOSKELETAL: Nail and fingers with good capillary refill. SKIN: Warm and well perfused with good skin turgor. NEUROLOGIC: Cranial nerves I through XII grossly intact. Sensation upper and extremities intact. No focal or lateralizing signs. PSYCH: Appropriate affect. Alert and oriented to person, place and time. Displays appropriate insight. CLINCAL LABS: Reviewed. WBC normal ASSESSMENT: 1. Postoperative pain, uncontrolled 2. History of chronic abdominal pain and chronic pain syndrome 3. Peritoneal adhesions 4. History of multiple abdominal surgeries 5. Medical noncompliance of medication regimen PLAN: 1. Will add Dilaudid 2. Also trial of Neurontin/flexeril for pain. Objective - Vital Signs Vital signs: Vital Signs Temp 98.6 F 06/27/19 07:00 Pulse 73 06/27/19 07:17 Resp 14 06/27/19 07:17 BP 142/84 06/27/19 07:00 Pulse Ox 96 06/27/19 07:00 Intake & Output 06/26/19 06/27/19 06/27/19 18:59 06:59 18:59 Intake Total 1999 Balance 1999 Weight 89.811 kg Intake: Intake, IV Titration 2000 Amount Sodium Chloride 0.9% 1, 1000 000 ml @ 999 mls/hr IV . Q1H1M ONE Rx#:[id number] Sodium Chloride 0.9% 1, 1000 000 ml @ 999 mls/hr IV . Q1H1M STA Rx#:[id number] Other: Voiding Method Toilet Toilet Toilet # Voids 2 2 # Bowel Movements 1 2 - Labs CBC & Chem 7: 06/27/19 09:41 06/27/19 09:41 Labs: Abnormal Lab Results - Last 24 Hours (Table) 06/27/19 06/27/19 Range/Units 09:41 09:41 RBC 3.70 L (3.80-5.40) m/uL Hgb 10.4 L (11.4-16.0) gm/dL Hct 32.6 L (34.0-46.0) % Lymphocytes # 0.7 L (1.0-4.8) k/uL BUN 4 L (7-17) mg/dL Creatinine 0.49 L (0.52-1.04) mg/dL Calcium 8.2 L (8.4-10.2) mg/dL Assessment and Plan (1) Generalized abdominal cramping Current Visit: Yes Status: Acute Code(s): R10.84 - GENERALIZED ABDOMINAL PAIN SNOMED Code(s): 223282717 (2) Constipation Current Visit: Yes Status: Acute Code(s): K59.00 - CONSTIPATION, UNSPECIFIED SNOMED Code(s): 78604988 (3) Chronic pain syndrome Current Visit: Yes Status: Acute Code(s): G89.4 - CHRONIC PAIN SYNDROME SNOMED Code(s): 142546227 (4) Post-op pain Current Visit: No Status: Acute Code(s): G89.18 - OTHER ACUTE POSTPROCEDURAL PAIN SNOMED Code(s): 507840731 (5) Gastric bypass status for obesity Current Visit: No Status: Chronic Code(s): Z98.84 - BARIATRIC SURGERY STATUS SNOMED Code(s): 239655039 (6) Intestinal adhesions Current Visit: No Status: Chronic Code(s): K66.0 - PERITONEAL ADHESIONS (POSTPROCEDURAL) (POSTINFECTION) SNOMED Code(s): 55912632 (7) Noncompliance with medication regimen Current Visit: Yes Status: Acute Code(s): Z91.14 - PATIENT'S OTHER NONCOMPLIANCE WITH MEDICATION REGIMEN SNOMED Code(s): 820039017
[2019-06-27] MEDS: HYDROmorphone 1 MG/ML 1 ML SYRINGE IVP PRN ×2 (13:06→19:16)
[2019-06-27] MEDS: CYCLOBENZAPRINE 10 MG TAB PO SCH ×3 (13:06→23:12)
[2019-06-28] MEDS: KETOROLAC 30 MG/ML 1 ML VIAL IVP SCH ×5 (00:37→23:49)
[2019-06-28] MEDS: SODIUM CHLORIDE 0.9% 1,000 ML IV SCH ×3 (00:38→18:06)
[2019-06-28] MEDS: HYDROmorphone 1 MG/ML 1 ML SYRINGE IVP PRN ×3 (05:37→23:44)
[2019-06-28] MEDS: ALPRAZolam 0.5 MG TAB PO PRN (09:12)
[2019-06-28] MEDS: CYCLOBENZAPRINE 10 MG TAB PO SCH ×3 (09:12→23:37)
[2019-06-28] MEDS: HYDROcodone/APAP 7.5-325MG 1 EACH TAB PO PRN ×2 (09:12→20:03)
[2019-06-28] MEDS: VORTIOXETINE HYDROBROMIDE 10 MG TABLET PO SCH (09:12)
[2019-06-28] MEDS: LORATADINE 10 MG TAB PO SCH (09:13)
[2019-06-28] MEDS: DOCUSATE 100 MG CAP PO SCH ×2 (09:13→20:03)
[2019-06-28] MEDS: LISINOPRIL 20 MG TAB PO SCH (09:13)
[2019-06-28] MEDS: amLODIPine 10 MG TAB PO SCH (09:13)
[2019-06-28] MEDS: PANTOPRAZOLE 40 MG/10 ML VIAL IVP SCH (09:13)
[2019-06-28] MEDS: LACTULOSE 20 GM/30 ML CUP PO SCH ×2 (09:14→20:03)
[2019-06-28] MEDS: HYDROCHLOROTHIAZIDE 25 MG TAB PO SCH (09:15)
[2019-06-28] MEDS: FLUTICASONE 50MCG/SPRAY NASAL 16GM EA NOSTRIL SCH (09:15)
[2019-06-28] MEDS: DICYCLOMINE 20 MG TAB PO SCH ×4 (10:13→23:37)
--- NOTE | 2019-06-28 10:50 | P.PN ---
<Sandra Vo Gilbert - Last Filed: 06/28/19 10:48> Subjective Progress Note Date: 06/28/19 CHIEF COMPLAINT: Abdominal pain HISTORY OF PRESENT ILLNESS: 38-year-old female who is status post appendectomy completed on 06/21/2019. Patient is admitted for uncontrolled postoperative brooks n. Patient examined this morning the bedside. She continues to require IV narcotics along with oral medications to manage her pain. She is currently rating her pain 6/10. She states the pain is mostly in the right lower quadrant and describes it as a spasm. Patient states she has been walking around in her room but has not been ambulate in the hallway. PHYSICAL EXAM: VITALS: Reviewed CONSTITUTIONAL: Well developed and in no acute distress. EYES: Conjuctivae without sclera icterus. Pupils are equally round and reactive to light. Extraocular movements grossly intact. HEAD, EARS, NOSE, THROAT: Moist buccal mucosa. Head is atraumatic, normocephalic. Hears conversational speech. No nasal drainage. RESPIRATORY: Non-labored respirations and equal bilateral excursions. No gross wheezes. CARDIOVASCULAR: Regular rate and rhythm. Extremities without moderate edema. Palpable 2+ radial pulses. ABDOMEN: Soft. Nondistended. Incisions clean dry intact. Generalized tenderness without peritonitis MUSCULOSKELETAL: Nail and fingers with good capillary refill. SKIN: Warm and well perfused with good skin turgor. NEUROLOGIC: Cranial nerves I through XII grossly intact. Sensation upper and extremities intact. No focal or lateralizing signs. PSYCH: Appropriate affect. Alert and oriented to person, place and time. Displays appropriate insight. ASSESSMENT: 1. Postoperative pain, uncontrolled 2. History of chronic abdominal pain and chronic pain syndrome 3. Peritoneal adhesions 4. History of multiple abdominal surgeries 5. Medical noncompliance of medication regimen PLAN: -Continue current pain regimen. Attempt to decrease use of IV narcotics if possible -Incentive spirometer -Increase activity. Patient encouraged to be ambulate in the hallway -Discharge home when pain is tolerable on oral medications Nurse practitioner note has been reviewed by physician. Signing provider agrees with the documented findings, assessment, and plan of care. Objective - Vital Signs Vital signs: Vital Signs Temp 98.6 F 06/28/19 07:00 Pulse 99 06/28/19 07:00 Resp 16 06/28/19 07:00 BP 155/88 06/28/19 07:00 Pulse Ox 89 L 06/28/19 07:00 Intake & Output 06/27/19 06/28/19 06/28/19 18:59 06:59 18:59 Intake Total 700 Balance 700 Intake: Intake, IV Titration 700 Amount Sodium Chloride 0.9% 1, 700 000 ml @ 100 mls/hr IV . Q10H SABRINA Rx#:[id number] Other: Voiding Method Toilet Toilet # Voids 3 3 # Bowel Movements 1 2 - Labs CBC & Chem 7: 06/27/19 09:41 06/27/19 09:41 <Kaitlin Enriquez - Last Filed: 06/28/19 20:04> Subjective As above. Overall pain improving. Likely discharge in 24 hours. Objective - Vital Signs Vital signs: Vital Signs Temp 99.2 F 06/28/19 15:00 Pulse 101 H 06/28/19 15:00 Resp 18 06/28/19 15:00 BP 155/95 06/28/19 15:00 Pulse Ox 90 L 06/28/19 15:00 Intake & Output 06/28/19 06/28/19 06/29/19 06:59 18:59 06:59 Intake Total 600 Balance 600 Intake: Intake, IV Titration 400 Amount ceFAZolin 2 gm In Sodium 400 Chloride 0.9% 50 ml @ 100 mls/hr IVPB Q8H SABRINA Rx#: [id number] Oral 200 Other: Voiding Method Toilet # Voids 3 1 # Bowel Movements 2 - Labs CBC & Chem 7: 06/28/19 14:23 06/27/19 09:41 Labs: Abnormal Lab Results - Last 24 Hours (Table) 06/28/19 Range/Units 14:23 Hgb 10.9 L (11.4-16.0) gm/dL Assessment and Plan (1) Generalized abdominal cramping Current Visit: Yes Status: Acute Code(s): R10.84 - GENERALIZED ABDOMINAL PAIN SNOMED Code(s): 561083073 (2) Constipation Current Visit: Yes Status: Acute Code(s): K59.00 - CONSTIPATION, UNSPECIFIED SNOMED Code(s): 15096195 (3) Chronic pain syndrome Current Visit: Yes Status: Acute Code(s): G89.4 - CHRONIC PAIN SYNDROME SNOMED Code(s): 683202147 (4) Post-op pain Current Visit: No Status: Acute Code(s): G89.18 - OTHER ACUTE POSTPROCEDURAL PAIN SNOMED Code(s): 497039422 (5) Gastric bypass status for obesity Current Visit: No Status: Chronic Code(s): Z98.84 - BARIATRIC SURGERY STATUS SNOMED Code(s): 153057093 (6) Intestinal adhesions Current Visit: No Status: Chronic Code(s): K66.0 - PERITONEAL ADHESIONS (POSTPROCEDURAL) (POSTINFECTION) SNOMED Code(s): 93477938 (7) Noncompliance with medication regimen Current Visit: Yes Status: Acute Code(s): Z91.14 - PATIENT'S OTHER NONCOMPLIANCE WITH MEDICATION REGIMEN SNOMED Code(s): 048359862
[2019-06-28] MEDS: ACETAMINOPHEN TAB 325 MG TAB PO SCH ×3 (14:59→23:48)
[2019-06-28 15:19] LABS: Basophils % (A) 0 %; Eosinophils # (A) 0.3 k/uL (0-0.7); Eosinophils % (A) 3 %; HCT 34.8 % (34.0-46.0); HGB 10.9 gm/dL (11.4-16.0); Hypochromasia Slight; Lymphocytes % (A) 11 %; MCH 27.5 pg (25.0-35.0); MCHC 31.5 g/dL (31.0-37.0); MCV 87.3 fL (80.0-100.0); Mean Platelet Volume 7.9; Monocytes # (A) 0.7 k/uL (0-1.0); Monocytes % (A) 8 %; Neutrophils # (A) 6.8 k/uL (1.3-7.7); Neutrophils % (A) 75 %; Platelet Count 430 k/uL (150-450); RBC 3.98 m/uL (3.80-5.40); RDW 13.7 % (11.5-15.5); WBC 9.2 k/uL (3.8-10.6)
[2019-06-29] MEDS: HYDROmorphone 1 MG/ML 1 ML SYRINGE IVP PRN (04:23)
[2019-06-29] MEDS: SODIUM CHLORIDE 0.9% 1,000 ML IV SCH (04:24)
[2019-06-29] MEDS: ACETAMINOPHEN TAB 325 MG TAB PO SCH ×2 (05:42→12:28)
[2019-06-29] MEDS: KETOROLAC 30 MG/ML 1 ML VIAL IVP SCH ×2 (05:44→12:33)
[2019-06-29 07:33] VITALS: BP 147/92; PULSE 96; RESP 17; TEMP 98.1
[2019-06-29] MEDS: PANTOPRAZOLE 40 MG/10 ML VIAL IVP SCH (08:51)
[2019-06-29] MEDS: CYCLOBENZAPRINE 10 MG TAB PO SCH (08:51)
[2019-06-29] MEDS: LORATADINE 10 MG TAB PO SCH (08:51)
[2019-06-29] MEDS: LISINOPRIL 20 MG TAB PO SCH (08:51)
[2019-06-29] MEDS: HYDROCHLOROTHIAZIDE 25 MG TAB PO SCH (08:51)
[2019-06-29] MEDS: DOCUSATE 100 MG CAP PO SCH (08:51)
[2019-06-29] MEDS: LACTULOSE 20 GM/30 ML CUP PO SCH (08:51)
[2019-06-29] MEDS: amLODIPine 10 MG TAB PO SCH (08:51)
[2019-06-29] MEDS: VORTIOXETINE HYDROBROMIDE 10 MG TABLET PO SCH (08:52)
[2019-06-29] MEDS: FLUTICASONE 50MCG/SPRAY NASAL 16GM EA NOSTRIL SCH (08:52)
[2019-06-29] MEDS: DICYCLOMINE 20 MG TAB PO SCH ×2 (08:52→12:28)
[2019-06-29] MEDS: HYDROcodone/APAP 7.5-325MG 1 EACH TAB PO PRN (09:05)
--- NOTE | 2019-06-29 11:12 | P.DS ---
<Sandra Vo - Last Filed: 06/29/19 11:11> Providers Expected date of discharge: 06/29/19 Hospital Course: 38-year-old female who is status post appendectomy completed on 06/21/2019. Patient is admitted for uncontrolled postoperative pain. Patient required IV narcotics to control her pain. Her pain has now improved and is controlled on oral medications. She is stable for DC home today. Please see EMR for further hospital course details. Discharge Diagnosis: 1. Postoperative pain, uncontrolled 2. History of chronic abdominal pain and chronic pain syndrome 3. Peritoneal adhesions 4. History of multiple abdominal surgeries 5. Medical noncompliance of medication regimen Nurse practitioner note has been reviewed by physician. Signing provider agrees with the documented findings, assessment, and plan of care. Patient Condition at Discharge: Stable Plan - Discharge Summary Discharge Rx Participant: Yes New Discharge Prescriptions: Continue amLODIPine [Norvasc] 10 mg PO DAILY HYDROcodone/APAP 7.5-325MG [[place] 7.5-325] 1 tab PO BID PRN PRN Reason: Pain Vortioxetine Hydrobromide [Trintellix] 10 mg PO DAILY Cetirizine HCl [Zyrtec] 10 mg PO DAILY Lisinopril 40 mg PO DAILY Fluticasone Propionate [Flonase Allergy Relief] 2 spray EA NOSTRIL DAILY Ibuprofen [Motrin] 600 mg PO Q8HR PRN #30 tab PRN Reason: Pain medroxyPROGESTERone [Depo-Provera] 150 mg IM Q84D Albuterol Inhaler [Ventolin Hfa Inhaler] 2 puff INHALATION RT-QID PRN PRN Reason: Shortness Of Breath Hydrochlorothiazide 25 mg PO DAILY busPIRone HCL [Buspar] 7.5 mg PO BID PRN PRN Reason: Anxiety Butalb/APAP/Caff 50-325-40Mg [Fioricet 50-325-40] 2 tab PO Q4H PRN PRN Reason: Headache ALPRAZolam [Xanax] 0.5 mg PO BID PRN PRN Reason: Anxiety Discharge Medication List amLODIPine [Norvasc] 10 mg PO DAILY 03/26/14 [History] HYDROcodone/APAP 7.5-325MG [[place] 7.5-325] 1 tab PO BID PRN 06/16/17 [History] Vortioxetine Hydrobromide [Trintellix] 10 mg PO DAILY 06/16/17 [History] Cetirizine HCl [Zyrtec] 10 mg PO DAILY 09/25/18 [History] Fluticasone Propionate [Flonase Allergy Relief] 2 spray EA NOSTRIL DAILY 09/25/18 [History] Lisinopril 40 mg PO DAILY 09/25/18 [History] Ibuprofen [Motrin] 600 mg PO Q8HR PRN #30 tab 06/21/19 [Rx] ALPRAZolam [Xanax] 0.5 mg PO BID PRN 06/26/19 [History] Albuterol Inhaler [Ventolin Hfa Inhaler] 2 puff INHALATION RT-QID PRN 06/26/19 [History] Butalb/APAP/Caff 50-325-40Mg [Fioricet 50-325-40] 2 tab PO Q4H PRN 06/26/19 [History] Hydrochlorothiazide 25 mg PO DAILY 06/26/19 [History] busPIRone HCL [Buspar] 7.5 mg PO BID PRN 06/26/19 [History] medroxyPROGESTERone [Depo-Provera] 150 mg IM Q84D 06/26/19 [History] Follow up Appointment(s)/Referral(s): Pedro Luis Mandel MD [Primary Care Provider] - 07/06/19 10:00 am Kaitlin Enriquez MD [STAFF PHYSICIAN] - 07/06/19 9:40 am Patient Instructions/Handouts: Acute Abdominal Pain (DC), Laparoscopic Appendectomy (DC) Discharge Disposition: HOME SELF-CARE <Kaitlin Enriquez - Last Filed: 06/29/19 20:58> Providers Date of admission: 06/27/19 13:00 Attending physician: Kaitlin Enriquez Primary care physician: Tequila Cloud - Discharge Diagnosis(es) (1) Generalized abdominal cramping Status: Acute (2) Constipation Status: Acute (3) Chronic pain syndrome Status: Acute (4) Post-op pain Status: Acute (5) Gastric bypass status for obesity Status: Chronic (6) Intestinal adhesions Status: Chronic (7) Noncompliance with medication regimen Status: Acute
== END 2019-06-29 12:50 | disposition home or self-care (01) | DRG 948 ==
LOC: EC 08:35 → 4SSUR 10:59 → OBSVTOIN 06-27 13:00
PROVIDERS: ADMIT Surgery Plastic and Reconstructive Surgery; ATTEND Surgery Plastic and Reconstructive Surgery
DX: G89.18 Other acute postprocedural pain (principal); I11.9 Hypertensive heart disease without heart failure; E66.01 Morbid (severe) obesity due to excess calories; F17.210 Nicotine dependence, cigarettes, uncomplicated; F41.0 Panic disorder [episodic paroxysmal anxiety]; G89.4 Chronic pain syndrome; K21.9 Gastro-esophageal reflux disease without esophagitis; K59.00 Constipation, unspecified; E86.0 Dehydration; G43.909 Migraine, unspecified, not intractable, without status migrainosus; R10.84 Generalized abdominal pain; R50.9 Fever, unspecified; T50.996A Underdosing of other drugs, medicaments and biological substances, initial encounter; Z91.138 Patient's unintentional underdosing of medication regimen for other reason; Z79.899 Other long term (current) drug therapy; Z90.49 Acquired absence of other specified parts of digestive tract; Z98.84 Bariatric surgery status; Z88.1 Allergy status to other antibiotic agents; Z88.2 Allergy status to sulfonamides; Z87.01 Personal history of pneumonia (recurrent); Z82.49 Family history of ischemic heart disease and other diseases of the circulatory system
CPT/HCPCS: 36415; 74177; 80048; 80053; 81001; 82150; 83605; 83690; 85025; 85610; 85730; 96361; 96374; 96375; 99285

== ENCOUNTER 2019-11-04 21:43 | Emergency (ER) | payer OTHER ==
--- NOTE | 2019-11-04 23:33 | XR ---
EXAMINATION TYPE: XR chest 1V portable DATE OF EXAM: 11/04/2019 COMPARISON: 12/24/2013 HISTORY: Cough. Chest pain TECHNIQUE: FINDINGS: Heart and mediastinum are normal. Lungs are clear of infiltrate. There is no pleural effusi on. Bony thorax is intact. IMPRESSION: No active cardiopulmonary disease. No heart failure. No change.
--- NOTE | 2019-11-04 23:48 | ED ---
General Adult HPI - General Chief complaint: Nausea/Vomiting/Diarrhea Stated complaint: Chest Pain,Diff Breathing,Poss Fever Time Seen by Provider: 11/04/19 22:49 Source: patient, RN notes reviewed Mode of arrival: ambulatory Limitations: no limitations - History of Present Illness Initial comments: 39-year-old female with a past medical history of pneumonia, hypertension presents to the emergency department for a chief complaint of cough. Patient states she has had a cough for the past couple days. Stitches and mild shortness of breath when she gets into a coughing fit with this. He denies hurts in her chest when she coughs. Patient states she also has nausea and some mild diarrhea. Patient reports she feels that she could have a fever but has been taking Motrin and Tylenol so was not sure. 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 - Related Data Home Medications Medication Instructions Recorded Confirmed amLODIPine [Norvasc] 10 mg PO DAILY 03/26/14 06/26/19 HYDROcodone/APAP 7.5-325MG [[place] 1 tab PO BID PRN 06/16/17 06/26/19 7.5-325] Vortioxetine Hydrobromide 10 mg PO DAILY 06/16/17 06/26/19 [Trintellix] Cetirizine HCl [Zyrtec] 10 mg PO DAILY 09/25/18 06/26/19 Fluticasone Propionate [Flonase 2 spray EA NOSTRIL DAILY 09/25/18 06/26/19 Allergy Relief] Lisinopril 40 mg PO DAILY 09/25/18 06/26/19 ALPRAZolam [Xanax] 0.5 mg PO BID PRN 06/26/19 06/26/19 Albuterol Inhaler (Mhu) [Ventolin 2 puff INHALATION RT-QID PRN 06/26/19 06/26/19 Hfa Inhaler (Mhu)] Butalb/APAP/Caff 50-325-40Mg 2 tab PO Q4H PRN 06/26/19 06/26/19 [Fioricet 50-325-40] Hydrochlorothiazide 25 mg PO DAILY 02/15/20 02/15/20 busPIRone HCL [Buspar] 7.5 mg PO BID PRN 06/26/19 06/26/19 medroxyPROGESTERone [Depo-Provera] 150 mg IM Q84D 06/26/19 06/26/19 Previous Rx's Medication Instructions Recorded Ibuprofen [Motrin] 600 mg PO Q8HR PRN #30 tab 06/21/19 Pregabalin [Lyrica] 25 mg PO TID #30 cap 07/06/19 Allergies Allergy/AdvReac Type Severity Reaction Status Date / Time sulfamethoxazole Allergy Unknown Verified 11/04/19 21:55 [From Bactrim] Childhood trimethoprim [From Bactrim] Allergy Unknown Verified 11/04/19 21:55 Childhood sumatriptan [From Imitrex] AdvReac Severe Rapid Verified 11/04/19 21:55 Heart Rate Review of Systems ROS Statement: Those systems with pertinent positive or pertinent negative responses have been documented in the HPI. ROS Other: All systems not noted in ROS Statement are negative. Past Medical History Past Medical History: Hypertension, Pneumonia Additional Past Medical History / Comment(s): CHRONIC ULCER'S X25 YEARS:(egd/COLONOSCOPY IN 2019 WAS FIRST EVER THAT WAS NEGATIVE FOR ULCER)LONG AGO . MIGRAINES, ABDOMINAL PAIN. hernia (UMBILICAL, RIGHT INGUINAL) History of Any Multi-Drug Resistant Organisms: None Reported Past Surgical History: Bariatric Surgery, Breast Surgery, Section, Cholecystectomy, Hernia Repair, Orthopedic Surgery, Tonsillectomy Additional Past Surgical History / Comment(s): CONCEPCIÓN-N-Y 2007 ([facility]). BREAST REDUCTION. TUMMY TUCK. INCARCERATED INGUIANAL Hernia repair 08/22/14, "pins and plates in left ankle" Past Anesthesia/Blood Transfusion Reactions: No Reported Reaction, Family History of Problems w/ Anesthesia Additional Past Anesthesia/Blood Transfusion Reaction / Comment(s): MOTHER AWAKENS DURING SURGERY. Past Psychological History: Anxiety, Panic Disorder Smoking Status: Current every day smoker Past Alcohol Use History: Occasional Past Drug Use History: Marijuana - Past Family History Mother Family Medical History: Hypertension Father Family Medical History: Hypertension Brother(s) Family Medical History: No Reported History General Exam Limitations: no limitations General appearance: alert, in no apparent distress Head exam: Present: atraumatic, normocephalic, normal inspection Eye exam: Present: normal appearance, PERRL, EOMI. Absent: scleral icterus, conjunctival injection, periorbital swelling ENT exam: Present: normal exam, mucous membranes moist Neck exam: Present: normal inspection, full ROM. Absent: tenderness, meningismus, lymphadenopathy Respiratory exam: Present: normal lung sounds bilaterally, chest wall tenderness (Mild reproducible chest pain). Absent: respiratory distress, wheezes, rales, rhonchi, stridor Cardiovascular Exam: Present: regular rate, normal rhythm, normal heart sounds. Absent: systolic murmur, diastolic murmur, rubs, gallop, clicks GI/Abdominal exam: Present: soft, normal bowel sounds. Absent: distended, tenderness, guarding, rebound, rigid Neurological exam: Present: alert Course Vital Signs 11/04/19 11/04/19 21:50 22:56 Temperature 98.2 F Pulse Rate 94 Respiratory 18 16 Rate Blood Pressure 144/84 O2 Sat by Pulse 97 Oximetry EKG Findings - EKG Comments: EKG Findings:: Normal sinus rhythm, ventricular rate 84, TN interval 174, QTc 463 Medical Decision Making - Medical Decision Making Vitals are stable. Patient is 97% on room air. She is afebrile here. She is well-appearing sitting up in bed. Lung sounds are clear. Chest x-ray shows no acute process. EKG shows a normal sinus rhythm. Colitis is pending. Patient was written a work note. She was prescribed Tessalon Perles. She will follow up with primary care in 1-2 days. She'll return here for any worsening symptoms or shortness of breath. Disposition Clinical Impression: Cough Disposition: HOME SELF-CARE Condition: Good Instructions (If sedation given, give patient instructions): Acute Cough (ED) Additional Instructions: Please take Tessalon Perles as needed. Please follow-up with primary care in 1- 2 days. Follow up on Covid testing results which should be available to in 12- 24 hours. Return here to the emergency room if you have any worsening symptoms. Is patient prescribed a controlled substance at d/c from ED?: No Referrals: Pedro Luis Mandel MD [Primary Care Provider] - 1-2 days Time of Disposition: 23:56
[2019-11-05 00:40] VITALS: BP 135/90; PULSE 87; RESP 18; TEMP 97.8
== END 2019-11-05 00:40 | disposition home or self-care (01) ==
LOC: EC 21:43
DX: R05 Cough (principal); R06.02 Shortness of breath; R11.0 Nausea; R07.9 Chest pain, unspecified; Z20.828 Contact with and (suspected) exposure to other viral communicable diseases; I10 Essential (primary) hypertension; F41.0 Panic disorder [episodic paroxysmal anxiety]; F17.200 Nicotine dependence, unspecified, uncomplicated; Z79.51 Long term (current) use of inhaled steroids; Z79.899 Other long term (current) drug therapy; Z88.1 Allergy status to other antibiotic agents; Z88.2 Allergy status to sulfonamides; Z88.8 Allergy status to other drugs, medicaments and biological substances; Z98.84 Bariatric surgery status
CPT/HCPCS: 93005; 71045; 99284; U0003

== ENCOUNTER → 2020-02-04 | Outpatient (CLI) | payer OTHER ==
--- NOTE | 2020-02-04 18:09 | XR ---
EXAMINATION TYPE: XR lumbar spine 2 or 3V DATE OF EXAM: 02/04/2020 CLINICAL HISTORY: Chronic pain. No injury. TECHNIQUE: Frontal and lateral images of the lumbar spine obtained. COMPARISON: None FINDINGS: There are 5 lumbar type vertebral bodies identified. The lumbar spine shows satisfactory alignment without evidence of acute fracture or dislocation. Vertebral body heights and disk space he ights are within normal limits. No spondylolisthesis. Facet arthropathy inferiorly. Sacroiliac joints are symmetric. IMPRESSION: 1. No acute fracture or dislocation is seen in the lumbar spine. 2. Facet arthropathy.
--- NOTE | 2020-02-04 18:10 | XR ---
EXAMINATION TYPE: XR thoracic spine complete DATE OF EXAM: 02/04/2020 CLINICAL HISTORY: Chronic pain, no injury TECHNIQUE: Frontal, lateral, and swimmer's view of thoracic spine are obtained. COMPARISON: None. FINDINGS: Thoracic spine show satisfactory alignment without evidence of acute fracture or dislocatio n. Vertebral body heights and disc space heights are preserved. Significant osteophytic spurring of the mid and inferior thoracic spine. Visualized ribs are unremarkable. IMPRESSION: 1. No acute fracture or dislocation is seen in the thoracic spine. 2. Degenerative disc disease.
--- NOTE | 2020-02-05 07:05 | CT ---
EXAMINATION TYPE: CT abdomen pelvis w con DATE OF EXAM: 02/04/2020 HISTORY: abdominal pain, history of multiple hernias. CT DLP: 1502.4mGycm Automated Exposure Control for Dose Reduction was Utilized. CONTRAST: CT scan of the abdomen and pelvis is performed with oral and with IV Contrast, patient injected with 100 mL of Isovue 300. COMPARISON: CT abdomen and pelvis June 26, 2019 and older CTs FINDINGS: LUNG BASES: Persistent cardiomegaly. LIVER/GB: Cholecystectomy clips are redemonstrated. Liver remains low dense consistent with diffuse f atty infiltration PANCREAS: No significant abnormality is seen. SPLEEN: No significant abnormality is seen. ADRENALS: No significant abnormality is seen. KIDNEYS: Focal cortical volume loss laterally mid pole level left kidney axial image 33 redemonstrate d. Symmetric cortical medullary uptake and excretion without hydronephrosis seen bilaterally. Roughly 1 cm low dense lesion right kidney delayed image 31 series 7 favors a benign thin-walled cyst. BOWEL: The oral contrast does not reach level of distal ileum making evaluation of distal bowel sligh tly suboptimal. Some diverticula in the sigmoid colon are present. No CT evidence for acute diverticu litis. Surgical changes from gastric bypass procedure epigastric region redemonstrated. No suspicious small or large bowel dilatation. UTERUS/ADNEXA: Anteverted uterus. Left ovary slightly larger than right ovary with 2.2 cm low dense l esion posteriorly favoring prominent follicle or simple thin-walled cyst. LYMPH NODES: No new greater than 1cm abdominal or pelvic lymph nodes are appreciated. Prominent but s ubcentimeter anterior left pelvic lymph node axial image 69 is stable. OSSEOUS STRUCTURES: Facet arthropathy lower lumbar spine. OTHER: Evidence of prior ventral wall hernia repair with some soft tissue noted extending directly sh eath at level of umbilicus axial images 52 through 55, possible scar or surgical change. No recurrent hernia defect identified. IMPRESSION: No suspicious recurrent ventral wall hernia defect. No suspicious new or acute finding id entified.
== END | disposition home or self-care (01) ==
LOC: RADCTMAIN 16:32
PROVIDERS: ATTEND Family Medicine
DX: M54.5 Low back pain (principal); K76.9 Liver disease, unspecified; M47.896 Other spondylosis, lumbar region; M51.34 Other intervertebral disc degeneration, thoracic region
CPT/HCPCS: 72072; 72100; 74177; Q9967

== ENCOUNTER → 2020-02-28 | Outpatient (CLI) | payer OTHER ==
--- NOTE | 2020-03-06 10:37 | MM ---
Reason for exam: screening (asymptomatic). Last mammogram was performed 2 years and 8 months ago. History: Patient history of other cancer. Family history of breast cancer in maternal grandmother at age 40. Benign cyst aspiration of the left breast, June 26, 2017. Reductions of both breasts, 2006. Took hormonal contraceptives for 11 years beginning at age 21. Physical Findings: A clinical breast exam by your physician is recommended on an annual basis and results should be correlated with mammographic findings. MG 3D Screening Mammo W/Cad Bilateral CC and MLO view(s) were taken. Prior study comparison: June 23, 2017, bilateral MG 3d diag mammo w/cad [facility]. There are scattered fibroglandular densities. Global asymmetry left breast is unchanged. No significant changes when compared with prior studies. ASSESSMENT: Benign, BI-RAD 2 RECOMMENDATION: Routine screening mammogram of both breasts in 1 year.
== END | disposition home or self-care (01) ==
LOC: RADMAMWWP 12:47
PROVIDERS: ATTEND Family Medicine
DX: Z12.31 Encounter for screening mammogram for malignant neoplasm of breast (principal)
CPT/HCPCS: 77063; 77067

== ENCOUNTER → 2020-07-27 | Outpatient (CLI) | payer OTHER ==
--- NOTE | 2020-07-27 14:47 | XR ---
EXAMINATION TYPE: XR facial bones complete DATE OF EXAM: 07/27/2020 COMPARISON: NONE HISTORY: Pain post fall TECHNIQUE: 4 views submitted FINDINGS: There is moderate mucosal thickening involving the paranasal sinuses. Osseous structures ot herwise intact. IMPRESSION: 1. No obvious acute fracture. There are changes of chronic sinusitis. If the patient is point tender than CT scan of the facial bones should be considered.
== END ==
LOC: RADXRMAIN 13:00
PROVIDERS: ATTEND Family Medicine
DX: J32.9 Chronic sinusitis, unspecified (principal)
CPT/HCPCS: 70150

== ENCOUNTER → 2020-09-04 | Outpatient (CLI) | payer OTHER ==
--- NOTE | 2020-09-04 13:15 | US ---
EXAMINATION TYPE: US venous doppler duplex LE DATE OF EXAM: 09/04/2020 12:51 PM COMPARISON: NONE CLINICAL HISTORY: Bilateral calf pain M79.661 Pain in r lower leg. calf pain x 6 months whether sitti ng or standing, no swelling, no h/o dvt SIDE PERFORMED: Bilateral TECHNIQUE: The lower extremity deep venous system is examined utilizing real time linear array sonog jhoana with graded compression, doppler sonography and color-flow sonography. VESSELS IMAGED: Common Femoral Vein Deep Femoral Vein Greater Saphenous Vein * Femoral Vein Popliteal Vein Small Saphenous Vein * Proximal Calf Veins (* superficial vessels) Right Leg: Negative for DVT Left Leg: Negative for DVT IMPRESSION: No evidence for DVT.
== END | disposition home or self-care (01) ==
LOC: RADUSWWP 12:12
PROVIDERS: ATTEND Family Medicine
DX: M79.661 Pain in right lower leg (principal)
CPT/HCPCS: 93970

== ENCOUNTER → 2020-09-06 | Outpatient (CLI) | payer OTHER ==
--- NOTE | 2020-09-07 06:46 | CT ---
EXAMINATION TYPE: CT facial bones wo con DATE OF EXAM: 09/06/2020 COMPARISON: NONE HISTORY: Acute sinusitis. Headaches with dizziness and facial pain for years per patient. CT DLP: 758.8 mGycm. Automated Exposure Control for Dose Reduction was Utilized. TECHNIQUE: CT scan of the facial bone is performed without contrast, axial images are obtained, coron al reformatted images are also reviewed. FINDINGS: Mild to minimal mucosal thickening in the bilateral maxillary sinuses. Moderate mucosal thi ckening with additional opacification in the anterior ethmoid sinuses bilaterally. There is moderate mucosal thickening inferior right frontal sinus. There is hypoplastic or non-formed left frontal sinu s. Sphenoid sinuses are grossly clear. The ostiomeatal complex is occluded bilaterally on the coronal images due to antral mucosal thickening. Nasal septum is deviated to left of midline. Visualized portion of mastoid air cells show no abnormal opacification. The globes are intact bilate rally. Facial bones are grossly intact. IMPRESSION: Chronic paranasal sinus disease as detailed above. Subtle acute component anterior ethmoi d sinuses particularly on the right is difficult to exclude. Occlusion of bilateral ostiomeatal compl exes noted.
== END | disposition home or self-care (01) ==
LOC: RADCTMAIN 17:39
PROVIDERS: ATTEND Family Medicine
DX: J01.90 Acute sinusitis, unspecified (principal)
CPT/HCPCS: 70486

== ENCOUNTER → 2020-12-27 | Outpatient (CLI) | payer OTHER ==
[2020-12-27 15:50] VITALS: BP 152/75; PULSE 68; RESP 18; TEMP 98.1; BMI 43.8
--- NOTE | 2020-12-27 15:56 | P.HPBAR ---
Bariatric H&P - History & Physicial H&P Date: 12/27/20 History & Physicial: Visit/CC: follow up Patient initial contact: Initial weight: 117.027 kg Initial weight in pounds: 258.00 Height: 5 ft 1 in Initial BMI: 48.7 Last weight: Current weight: 105.233 kg Current weight in pounds: 232.00 Current BMI: 43.8 [place] body weight (based on NIH guidelines): 47.627 kg Excess body weight loss: 16.9% The patient is a 40 year-old F who presents for Bariatric Assessment. She comes in with periumbilical pain. She has scar tissue. She has poor absorption of Vitamin D. Recommend full bariatric labs. She is smoking again. Lysis of adhesions outpatient. Strict tobacco cessation advised. Past Medical History Past Medical History: Hypertension, Pneumonia Additional Past Medical History / Comment(s): CHRONIC ULCER'S X25 YEAR S:(egd/COLONOSCOPY IN 2019 WAS FIRST EVER THAT WAS NEGATIVE FOR ULCER)LONG AGO . MIGRAINES, ABDOMINAL PAIN. hernia (UMBILICAL, RIGHT INGUINAL) History of Any Multi-Drug Resistant Organisms: None Reported Past Surgical History: Bariatric Surgery, Breast Surgery, Section, Cholecystectomy, Hernia Repair, Orthopedic Surgery, Tonsillectomy Additional Past Surgical History / Comment(s): CONCEPCIÓN-N-Y 2007 ([facility]). BREAST REDUCTION. TUMMY TUCK. INCARCERATED INGUIANAL Hernia repair 08/22/14, "pins and plates in left ankle". 10/31/20 - pins and plates removed in left ankle. Past Anesthesia/Blood Transfusion Reactions: No Reported Reaction, Family History of Problems w/ Anesthesia Additional Past Anesthesia/Blood Transfusion Reaction / Comm: MOTHER AWAKENS DURING SURGERY. Smoking Status: Current some day smoker - Past Family History Mother Family Medical History: Hypertension Father Family Medical History: Hypertension Brother(s) Family Medical History: No Reported History Surgical - Exam Vital Signs Temp Pulse Resp BP 98.1 F 68 18 152/75 12/27/20 15:45 12/27/20 15:45 12/27/20 15:45 12/27/20 15:45 Bariatric Checklist Checklist: Plan: Checklist: EGD: 1. Hiatal hernia: 2. H. Pylori: HgbA1c: Vitamin D: Smoking: Current every day smoker Primary care physician referral: DR. Svetlana ADRIAN Psychiatry clearance: Cardiology clearance: Sleep study: Diet journal: VTE risk score: VTE risk level: Rehab needs at discharge:
== END | disposition home or self-care (01) ==
LOC: BARWHC3 14:20
PROVIDERS: ATTEND Surgery Plastic and Reconstructive Surgery
DX: E66.01 Morbid (severe) obesity due to excess calories (principal); Z68.41 Body mass index [BMI] 40.0-44.9, adult
CPT/HCPCS: 99211

== ENCOUNTER → 2021-01-08 | Outpatient (CLI) | payer OTHER ==
[2021-01-08 16:14] LABS: INR 0.9 (<1.2); Partial Thromboplastin Time 22.4 sec (22.0-30.0); Prothrombin Time 9.8 sec (9.0-12.0)
[2021-01-08 23:44] LABS: HCT 39.7 % (37.2-46.3); HGB 12.4 g/dL (12.0-15.0); MCH 28.2 pg (27.0-32.0); MCHC 31.2 g/dL (32.0-37.0); MCV 90.2 fL (80.0-97.0); Mean Platelet Volume 9.7 fL (9.5-12.2); Platelet Count 294 X 10*3/uL (140-440); RDW 13.3 % (11.5-14.5); WBC 6.26 X 10*3/uL (4.50-10.00)
[2021-01-09 00:50] LABS: Hemoglobin A1C 4.9 % (4.0-6.0)
[2021-01-09 04:43] LABS: % Iron Saturation 27.24 (12.00-45.00); African American GFR (CKD) 124.7 (60.0-200.0); Albumin 4.4 g/dL (3.80-4.90); Albumin/Globulin Ratio 2.1 (1.60-3.17); Anion Gap 11.7 mmol/L (4.00-12.00); Calcium 9.3 mg/dL (8.7-10.3); Carbon Dioxide 25.3 mmol/L (21.6-31.8); Chol/HDL Ratio 2.09; Globulin 2.1 g/dL (1.6-3.3); LDL Cholesterol,Calculated 66.4 mg/dL (0.0-131.0); Magnesium 1.7 mg/dL (1.5-2.4); Non-African American GFR(CKD) 107.6 (60.0-200.0); Phosphorus 3.4 mg/dL (2.4-5.1); Potassium 3.2 mmol/L (3.5-5.5); Total Bilirubin 0.4 mg/dL (0.3-1.2); Total Protein 6.5 g/dL (6.2-8.2); VLDL Calculation 26.6 mg/dL (5.00-40.00)
[2021-01-09 04:53] LABS: Folate, Serum 8.1 ng/mL
[2021-01-09 05:03] LABS: Ferritin 18.7 ng/mL (10.0-291.0)
[2021-01-09 15:07] LABS: Zinc, Serum 80 ug/dL (60-130)
[2021-01-10 07:43] LABS: Vitamin A 61 ug/dL (38-106)
== END | disposition home or self-care (01) ==
LOC: LABWHC1 15:03
PROVIDERS: ATTEND Surgery Plastic and Reconstructive Surgery
DX: E66.01 Morbid (severe) obesity due to excess calories (principal); E89.1 Postprocedural hypoinsulinemia; D50.8 Other iron deficiency anemias; K90.89 Other intestinal malabsorption; E55.9 Vitamin D deficiency, unspecified; K74.1 Hepatic sclerosis; N19 Unspecified kidney failure; K50.90 Crohn's disease, unspecified, without complications
CPT/HCPCS: 36415; 80053; 80061; 82306; 82525; 82607; 82728; 82746; 83036; 83540; 83550; 83735; 83970; 84100; 84134; 84255; 84425; 84443; 84590; 84630; 85027; 85610; 85730

== ENCOUNTER → 2021-03-14 | Outpatient (CLI) | payer OTHER ==
--- NOTE | 2021-03-16 14:13 | MM ---
Reason for exam: screening (asymptomatic). Last mammogram was performed 1 year ago. History: Patient history of other cancer. Family history of breast cancer in maternal grandmother at age 40. Benign cyst aspiration of the left breast, June 26, 2017. Reductions of both breasts, 2007. Took hormonal contraceptives for 11 years beginning at age 21. Physical Findings: A clinical breast exam by your physician is recommended on an annual basis and results should be correlated with mammographic findings. MG 3D Screening Mammo W/Cad Bilateral CC and MLO view(s) were taken. Prior study comparison: February 28, 2020, bilateral MG 3d screening mammo w/cad. June 23, 2017, bilateral MG 3d diag mammo w/cad [facility]. There are scattered fibroglandular densities. There are benign appearing round calcifications bilaterally. Asymmetric breast tissue left subareolar, stable. There is no discrete abnormality. ASSESSMENT: Negative, BI-RAD 1 RECOMMENDATION: Routine screening mammogram of both breasts in 1 year.
== END | disposition home or self-care (01) ==
LOC: RADMAMWWP 09:33
PROVIDERS: ATTEND Family Medicine
DX: Z12.39 Encounter for other screening for malignant neoplasm of breast (principal)
CPT/HCPCS: 77063; 77067

== ENCOUNTER → 2021-09-03 | Outpatient (CLI) | payer OTHER ==
--- NOTE | 2021-09-05 11:53 | USB ---
Reason for exam: clinical finding. History: Patient history of other cancer. Family history of breast cancer in maternal grandmother at age 40. Benign cyst aspiration of the left breast, June 26, 2017. Reductions of both breasts, 2006. Took hormonal contraceptives for 11 years beginning at age 21. Indicated problem(s): pain in the left breast. Physical Findings: A clinical breast exam by your physician is recommended on an annual basis and results should be correlated with mammographic findings. US Breast Limited LT Left complete breast ultrasound includes all four quadrants, the retroareolar region and axilla. Finding demonstrates a 5 x 3 x 5mm oval, solid, hypoechoic lesion at the posterior nipple. Results were given to the patient verbally at the time of the exam. ASSESSMENT: Suspicious, BI-RAD 4 RECOMMENDATION: Ultrasound core biopsy of the left breast. Called Dr. Garcia's office with mammographic findings and has scheduled an appointment for the patient for 09/26/21 at 9:[address] Sharp. Biopsy scheduled for 09/19/21 at 10:00. PRELIMINARY REPORT CALLED AND FAXED TO DR. SHARP ON 09/05/21.
== END | disposition home or self-care (01) ==
LOC: RADUSWWP 12:09
PROVIDERS: ATTEND Family Medicine
DX: N60.02 Solitary cyst of left breast (principal)

== ENCOUNTER → 2021-09-12 | Outpatient (CLI) | payer OTHER ==
[2021-09-12 10:20] VITALS: BP 136/90; PULSE 78; RESP 18; TEMP 98.2
--- NOTE | 2021-09-12 11:02 | P.GSHP ---
History of Present Illness H&P Date: 09/12/21 Chief Complaint: Radiographic abnormality left breast Raiza is a 41-year-old female seen in consultation for Dr. Garcia regarding a radiographic abnormality noted in her left breast. The patient's last bilateral mammogram was on . This was benign BIRADS 1. However since that time the patient has noticed some swelling in the area of the left axilla which has then progressed to some nodularity in the left nipple areolar region. She has a complex history in that she has had multiple abscesses drained in the left periareolar area, including having nurse home care for packing of the region. She ultimately underwent a resection of the area in the operating room approximately 2-1/2 years ago. She has not had recurrent abscess and tell recent new onset of nodularity. She is not complaining of any fever or chills. She does have discomfort at the site. She also had some drainage from the area. She had an initial injection of Rocephin prior to starting the doxycycline. She was recently started on doxycycline, it seems that had minimal benefit. An ultrasound was performed . This revealed a 5 x 5 mm oval density in the region of the palpable abnormality. Recommendation was for ultrasound-guided core biopsy. She has had bilateral breast reduction in 2007. She was a 52G, she is now a 38C. She also had an abdominoplasty after she had bariatric surgery and lost 320 pounds. Caffiene: 1 cup/day nicotine: /4 to 1/2 PPD chocolate: none BCP: 7 years started at 13, then DEPO for 15 years ablation done in 2021 Family history: maternal grandmother: thyroid cancer, bottom of foot cancer ? type mother: ? cancer ? cervical cancer Hormonal History: menarche: 11 M1, breast fed: no, age at first irth: 23 ablation done in 2021, done for bleeding hormones: none besides BCP: 7 years, and DEPO for 15 years Surgical history: Uterine ablation Gastric bypass Cholecystectomy 5 hernia repairs Bilateral breast reduction and abdominoplasty Appendectomy Left ankle fractured deviated septum Medical History: HTN anxiety migraine headache pain management for back (norco 7.5 up to TID) Social History: nicotine: 1/2 to 1 PPD alcohol: occasional weekends drugs: Marijuana THC edibles at bedtime - Constitutional Constitutional: Denies chills, Denies fever - EENT Eyes: denies blurred vision, denies pain Ears: deny: decreased hearing Ears, nose, mouth and throat: Reports headache, Denies sore throat - Breasts Breasts: bilateral: as per HPI - Cardiovascular Cardiovascular: Denies chest pain, Denies shortness of breath - Respiratory Respiratory: Denies cough, Denies 7 - Gastrointestinal Comment: history of PUD, irritable bowel syndrome diarrhea at times and constipation at times - Genitourinary (Female) Genitourinary: Denies dysuria, Denies hematuria - Menstruation Menstruation: Reports as per HPI - Musculoskeletal Comment: back pain Musculoskeletal: Reports myalgias - Integumentary Integumentary: Denies pruritus, Denies rash - Neurological Neurological: Denies numbness, Denies weakness - Psychiatric Psychiatric: Reports anxiety, Reports depression - Endocrine Endocrine: Reports fatigue, Reports weight change - Hematologic/Lymphatic Comment: none - Allergic/Immunologic Allergic/Immunologic: Reports as per HPI Past Medical History Past Medical History: Hypertension, Pneumonia Additional Past Medical History / Comment(s): CHRONIC ULCER'S X25 YEARS:(egd/COLONOSCOPY IN 2019 WAS FIRST EVER THAT WAS NEGATIVE FOR ULCER)LONG AGO . MIGRAINES, ABDOMINAL PAIN. hernia (UMBILICAL, RIGHT INGUINAL) History of Any Multi-Drug Resistant Organisms: None Reported Past Surgical History: Bariatric Surgery, Breast Surgery, Section, Cholecystectomy, Hernia Repair, Orthopedic Surgery, Tonsillectomy Additional Past Surgical History / Comment(s): CONCEPCIÓN-N-Y 2007 ([facility]). BREAST REDUCTION. TUMMY TUCK. INCARCERATED INGUIANAL Hernia repair 08/22/14, "pins and plates in left ankle". 10/31/20 - pins and plates removed in left ankle. Past Anesthesia/Blood Transfusion Reactions: No Reported Reaction, Family History of Problems w/ Anesthesia Additional Past Anesthesia/Blood Transfusion Reaction / Comment(s): MOTHER AWAKENS DURING SURGERY. Past Psychological History: Anxiety, Panic Disorder Additional Psychological History / Comment(s): Pt resides with a roomate and her 16 yr old son. She is independent. Smoking Status: Current some day smoker Past Alcohol Use History: Occasional Additional Past Alcohol Use History / Comment(s): smokes 1/2ppd,started smoking age 19 approx Past Drug Use History: Marijuana Additional Drug Use History / Comment(s): Infrequent use of marijuana - Past Family History Mother Family Medical History: Hypertension Father Family Medical History: Hypertension Brother(s) Family Medical History: No Reported History Medications and Allergies Home Medications Medication Instructions Recorded Confirmed Type HYDROcodone/APAP 7.5-325MG [[place] 1 tab PO TID 06/16/17 09/12/21 History 7.5-325] Fluticasone Propionate [Flonase 2 spray EA NOSTRIL DAILY 09/25/18 09/12/21 History Allergy Relief] Ibuprofen [Motrin] 600 mg PO Q8HR PRN #30 tab 06/21/19 09/12/21 Rx ALPRAZolam [Xanax] 0.5 mg PO BID PRN 06/26/19 09/12/21 History Butalb/APAP/Caff 50-325-40Mg 2 tab PO Q4H PRN 06/26/19 09/12/21 History [Fioricet 50-325-40] hydroCHLOROthiazide 25 mg PO DAILY 06/26/19 09/12/21 History Pregabalin [Lyrica] 25 mg PO TID #30 cap 07/06/19 09/12/21 Rx Diltiazem HCl [Cardizem] 120 mg PO DAILY 07/24/20 09/12/21 History Losartan [Cozaar] 100 mg PO DAILY 07/24/20 09/12/21 History busPIRone HCL 1 tab PO DAILY 07/24/20 09/12/21 History Allergies Allergy/AdvReac Type Severity Reaction Status Date / Time sulfamethoxazole Allergy Unknown Verified 09/12/21 10:16 [From Bactrim] Childhood trimethoprim [From Bactrim] Allergy Unknown Verified 09/12/21 10:16 Childhood sumatriptan [From Imitrex] AdvReac Severe Rapid Verified 09/12/21 10:16 Heart Rate Surgical - Exam Vital Signs Temp Pulse Resp BP Pulse Ox 98.2 F 78 18 136/90 99 09/12/21 10:18 09/12/21 10:18 09/12/21 10:18 09/12/21 10:18 09/12/21 10:18 BMI: 46.5 - General no distress - Eyes normal ocular movement - ENT no hearing loss - Neck trachea midline - Respiratory normal respiratory effort, clear to auscultation - Cardiovascular Rhythm: regular Heart Sounds: normal: S1, S2 - Abdomen Abdomen: soft, non tender, no guarding, no rigid, no rebound - Integumentary normal turgor - Neurologic no disoriented, no combative - Musculoskeletal normal gait - Psychiatric oriented to time, oriented to person, oriented to place, speech is normal, memory intact Breast Exam: BRA: 38C inspection: Bilateral grade 1 ptosis, prior bilateral breast reduction Palpation: Right breast: Multi-positional exam fibrocystic changes no dominant masses or nodules of concern Right axilla: No adenopathy of concern Left breast: Multiple positional exam increased fullness from the 7 to 9 o'clock position periareolar region of the left breast otherwise no dominant masses or nodules of concern Left axilla: No adenopathy of concern Results Mammogram and ultrasound reviewed in detail with Dr. Christine Assessment and Plan Assessment: Impression: 1. Fibrocystic breast changes 2. New-onset increased nodularity left breast periareolar area consistent with area seen on ultrasound 3. Prior history of left breast abscesses 4. Bilateral breast reduction 6. Family history of ? cancer/mother unknown type Plan: Ultrasound-guided core biopsy/aspiration area of fullness in left breast Complete antibiotic treatment Follow-up after ultrasound-guided core biopsy CC: Brenda Jerome; Dr. Garcia
== END | disposition home or self-care (01) ==
LOC: WWCWWP 09:56
PROVIDERS: ATTEND Surgery
DX: Z53.9 Procedure and treatment not carried out, unspecified reason (principal)

== ENCOUNTER → 2021-09-19 | Day surgery (SDC) | payer OTHER ==
--- NOTE | 2021-09-19 11:28 | USB ---
EXAMINATION TYPE: US biopsy breast VAD LT DATE OF EXAM: 09/19/2021 CLINICAL HISTORY: N63 BREAST LUMP/MASS. TECHNIQUE: Ultrasound guided core biopsy of left periareolar breast. COMPARISON: NONE FINDINGS: The procedure of ultrasound guided core biopsy was explained to the patient. Benefits, alternatives, and risks were discussed. An informed consent was then obtained. The patient was placed in supine positioning for imaging and for the procedure. The overlying skin was prepped and draped in usual sterile fashion. Lidocaine buffered with bicarbonate was used as anesthetic into the skin and subcutaneous tissue up to area of concern in the left periareolar breast. A ny was made with surgical scalpel. Under ultrasound guidance, a 12-gauge vacuum assisted biopsy gun device was used to obtain 3 core samples. Following this, a biopsy clip was left in lesion. The patient tolerated the procedure well without any immediate complication. The patient was kept in the radiology department for short stay after the procedure and then discharged home in stable condition. IMPRESSION: Successful, uncomplicated ultrasound guided core biopsy of area of concern in the left periareolar breast, full pathology results to follow. Pathology Results: Benign LEFT BREAST POSTERIOR NIPPLE, ULTRASOUND GUIDED NEEDLE CORE BIOPSY: Fibrocystic changes with focal fibrosis/scar, inflammation and histiocytes. Epidermal inclusion cyst with features of rupture. Negative for malignancy. Recommendation Follow up ultrasound of the left breast in 6 months. MTDD
== END ==
LOC: RADUSWWP 09:48
PROVIDERS: ATTEND Student in an Organized Health Care Education/Training Program
DX: N60.12 Diffuse cystic mastopathy of left breast (principal); N60.02 Solitary cyst of left breast; R92.8 Other abnormal and inconclusive findings on diagnostic imaging of breast
CPT/HCPCS: 88305; 19083; A4648

== ENCOUNTER → 2022-02-27 | Outpatient (CLI) | payer OTHER ==
--- NOTE | 2022-02-27 12:31 | MM ---
Reason for Exam: Hx of benign breast biopsy. Last screening mammogram was performed 11 month(s) ago. Patient History: Menarche at age 10. First Full-Term at age 23. Hormonal Contraceptives for 11 years from age 21 until age 32. 2006, Bilateral Reduction. 06/26/2017, Benign Cyst Aspiration on the left side. 09/19/2021, Benign Core Biopsy on the left side. Maternal grandmother had breast cancer, age 40. Last menstrual period: 06/26/2021 Risk Values: Crystal 5 year model risk: 1.0%. NCI Lifetime model risk: 11.8%. Prior Study Comparison: 06/23/2017 Bilateral Diagnostic Mammogram, [facility]. 02/28/2020 Bilateral Screening Mammogram, [facility]. 03/14/2021 Bilateral Screening Mammogram, [facility]. Tissue Density: There are scattered fibroglandular densities. Findings: Analyzed By CAD. Previous mammotome biopsy clip in the left breast. No new cluster or worrisome microcalcifications or new suspicious mass within either breast. No significant change from prior examination. Overall Assessment: Benign, BI-RAD 2 Management: Screening Mammogram of both breasts in 1 year. A clinical breast exam by your physician is recommended on an annual basis and results should be correlated with mammographic findings. This exam should not preclude additional follow-up of suspicious palpable abnormalities. Results were given to the patient verbally at the time of exam. Electronically signed and approved by: Dameon Haile D.O.
--- NOTE | 2022-02-27 12:31 | MM ---
Reason for Exam: Hx of benign breast biopsy. Last screening mammogram was performed 11 month(s) ago. Patient History: Menarche at age 10. First Full-Term at age 23. Hormonal Contraceptives for 11 years from age 21 until age 32. 2006, Bilateral Reduction. 06/26/2017, Benign Cyst Aspiration on the left side. 09/19/2021, Benign Core Biopsy on the left side. Maternal grandmother had breast cancer, age 40. Last menstrual period: 06/26/2021 Risk Values: Crystal 5 year model risk: 1.0%. NCI Lifetime model risk: 11.8%. Prior Study Comparison: 06/23/2017 Bilateral Diagnostic Mammogram, [facility]. 02/28/2020 Bilateral Screening Mammogram, [facility]. 03/14/2021 Bilateral Screening Mammogram, [facility]. Tissue Density: There are scattered fibroglandular densities. Findings: Analyzed By CAD. Previous mammotome biopsy clip in the left breast. No new cluster or worrisome microcalcifications or new suspicious mass within either breast. No significant change from prior examination. Overall Assessment: Benign, BI-RAD 2 Management: Screening Mammogram of both breasts in 1 year. A clinical breast exam by your physician is recommended on an annual basis and results should be correlated with mammographic findings. This exam should not preclude additional follow-up of suspicious palpable abnormalities. Results were given to the patient verbally at the time of exam. Electronically signed and approved by: Dameon Haile D.O.
== END | disposition home or self-care (01) ==
LOC: RADMAMWWP 10:47
PROVIDERS: ATTEND Family Medicine
DX: Z12.31 Encounter for screening mammogram for malignant neoplasm of breast (principal)
CPT/HCPCS: 77066; G0279; 77062

== ENCOUNTER → 2022-02-27 | Outpatient (CLI) | payer OTHER | END | disposition home or self-care (01) | LOC: LABWHC1 12:41 | PROVIDERS: ATTEND Nurse Practitioner Family | DX: Z01.812 Encounter for preprocedural laboratory examination (principal) | CPT/HCPCS: 93005 ==

== ENCOUNTER → 2022-12-18 | Outpatient (CLI) | payer OTHER ==
--- NOTE | 2022-12-18 14:56 | XR ---
EXAMINATION TYPE: XR lumbar spine 2 or 3V, XR thoracic spine complete DATE OF EXAM: 12/18/2022 CLINICAL HISTORY: pain TECHNIQUE: Frontal and lateral views of the lumbar spine. Frontal, swimmer's and lateral views of the thoracic spine. COMPARISON: Thoracolumbar spine radiograph 02/04/2020 FINDINGS: No acute fracture or dislocation. Alignment is within normal limits. Vertebral body heights are withi n normal limits. Mild multilevel degenerative disease of the thoracic spine with endplate sclerosis a nd osteophytosis. Disc spaces are normal involving the lumbar spine. Lower lumbar spine facet arthrop athy. Cholecystectomy clips right upper quadrant. Suture material within the left upper quadrant. The overlying soft tissue appears unremarkable. IMPRESSION: 1. No acute fracture. 2. 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
== END | disposition home or self-care (01) ==
LOC: RADXRMAIN 14:12
PROVIDERS: ATTEND Nurse Practitioner Family
DX: M51.34 Other intervertebral disc degeneration, thoracic region (principal); M47.816 Spondylosis without myelopathy or radiculopathy, lumbar region
CPT/HCPCS: 72072; 72100

== ENCOUNTER → 2023-01-02 | Outpatient (CLI) | payer OTHER ==
--- NOTE | 2023-01-06 11:04 | US ---
EXAMINATION TYPE: US abdomen limited DATE OF EXAM: 01/02/2023 COMPARISON: 02/04/2020 CLINICAL INDICATION: Female, 42 years old with history of K42.9 UMBILICAL HERNIA WITHOUT OBSTRUCTION OR GANG; h/o multiple surgeries as recent as Jun 2022, after this past surgery patient feels lump and pain near umbilicus Assess for hernia at location of: Umbilicus No herniation was seen but at area of complaint was probable seroma that extends to skin line. Estima aron at 5.4cm in length. Real-time scanning was performed by the coach operator utilizing Valsalva and additional dynamic maneuve rs to assess for hernia. IMPRESSION: No evidence for hernia. There is probable postop seroma containing simple fluid visualiz ed. This is new from 2019.
== END | disposition home or self-care (01) ==
LOC: RADUSWWP 08:03
PROVIDERS: ATTEND Family Medicine
DX: K42.9 Umbilical hernia without obstruction or gangrene (principal)
CPT/HCPCS: 76705

== ENCOUNTER → 2023-03-07 | Outpatient (CLI) | payer BC ==
--- NOTE | 2023-03-07 09:56 | CT ---
EXAMINATION TYPE: CT abdomen pelvis w con CT DLP: 2327.90 mGycm, Automated exposure control for dose reduction was used. DATE OF EXAM: 03/07/2023 9:31 AM COMPARISON: CT abdomen pelvis most recent from CLINICAL INDICATION:Female, 42 years old with history of K42.9 UMBILICAL HERNIA WITHOUT OBSTRUCTION O R GANG; Umbilical hernia w/out obstruction/gangrene, multiple sx on hernia, gastric bypass, tummy tuc k. TECHNIQUE: Axial CT of the ;CT abdomen pelvis w con;Sagittal and coronal reformats were created on a separate workstation. Contrast used:100 mL of Isovue 300 with IV Contrast, (none if empty) Oral contrast used: with Oral Contrast (none if empty) FINDINGS: LOWER CHEST: The heart is mildly enlarged for size. There is some coronary artery atherosclerosis par tially visualized. ABDOMEN LIVER: Unremarkable GALLBLADDER AND BILE DUCTS: Gallbladder surgically absent. PANCREAS: Unremarkable. SPLEEN: Unremarkable. ADRENAL GLANDS: Unremarkable. KIDNEYS AND URETERS: No evidence of hydronephrosis or renal calculus. The ureters are unremarkable. PELVIS BLADDER: Unremarkable REPRODUCTIVE: Unremarkable. ABDOMEN & PELVIS STOMACH AND BOWEL: No evidence of bowel obstruction. Postsurgical changes in the gastric lumen. No ev idence for bowel wall thickening. Oral contrast extends to nearly the terminal ileum. Few scattered c olonic diverticula are present throughout the large bowel. PERITONEUM/RETROPERITONEUM: No evidence of pneumoperitoneum or free fluid. VASCULATURE: No evidence of aortic aneurysm. MUSCULOSKELETAL: No acute osseous abnormalities. Mild disc degeneration changes are present throughou t the thoracolumbar spine. LYMPH NODES: No gross evidence for lymphadenopathy. SOFT TISSUE/ABDOMINAL WALL: Umbilical hernia which hasn't suspected fluid in the area of the umbilicu s. There is oral contrast within the small bowel extending to nearly the terminal ileum and there is no contrast within these loops of bowel. IMPRESSION: 1. Umbilical hernia containing suspected fluid versus post surgical change in the setting of prior r epair. No bowel enters this hernia. Oral contrast does extend through a majority of the small bowel. This could be evaluated with ultrasound if clinically warranted. 2. No acute abdominal process. 3. Post surgical changes to the gastric lumen. 4. Mild cardiomegaly
== END | disposition home or self-care (01) ==
LOC: RADCTMAIN 07:21
PROVIDERS: ATTEND Surgery
DX: K42.9 Umbilical hernia without obstruction or gangrene (principal); I51.7 Cardiomegaly
CPT/HCPCS: 74177; Q9967

== ENCOUNTER → 2023-10-03 | Outpatient (CLI) | payer BC ==
--- NOTE | 2023-10-03 15:17 | XR ---
EXAMINATION TYPE: XR ribs LT w pa chest xray DATE OF EXAM: 10/03/2023 2:14 PM CLINICAL INDICATION:Female, 43 years old with history of M25.512 W19.XXXA PAIN IN LEFT SHOULDER UNSPE CIFIED; [facility] COMPARISON: None TECHNIQUE: XR ribs LT w pa chest xray; Frontal and oblique views of the ribs with frontal chest radio graph. FINDINGS: Underpenetration limits evaluation. The ribs have a normal appearance. No evidence of frac ture. Overall, the lungs are clear. The cardiac silhouette is normal in size. The remaining osseous structures are intact. IMPRESSION: Underpenetrated film no obvious displaced rib fractures. Consider CT imaging for further evaluation i f clinically warranted.
--- NOTE | 2023-10-03 15:19 | XR ---
EXAMINATION TYPE: XR shoulder complete LT, XR humerus LT DATE OF EXAM: 10/03/2023 2:14 PM CLINICAL INDICATION:Female, 43 years old with history of M25.512 W19.XXXA PAIN IN LEFT SHOULDER UNSPE CIFIED; [facility] COMPARISON: None TECHNIQUE: XR shoulder complete LT, XR humerus LT; examined in AP, internally rotated and scapular Y projections. Frontal and lateral views of the humerus. FINDINGS/IMPRESSION: Underpenetrated film which limits evaluation. Lucency through the humeral head seen on a couple image s. Consider CT imaging for further evaluation for nondisplaced fracture.
== END | disposition home or self-care (01) ==
LOC: RADXRMAIN 13:30
PROVIDERS: ATTEND Nurse Practitioner Family
DX: M25.512 Pain in left shoulder (principal); W19.XXXA Unspecified fall, initial encounter

== ENCOUNTER → 2024-09-01 | Outpatient (CLI) | payer BC ==
--- NOTE | 2024-09-01 14:48 | MM ---
Reason for Exam: Screening (asymptomatic). Last mammogram was performed 1 year(s) and 1 month(s) ago. Patient History: Menarche at age 10. First Full-Term at age 23. Premenopausal. Hormonal Contraceptives for 11 years from age 21 until age 32. 2006, Bilateral Reduction. 06/26/2017, Benign Cyst Aspiration on the left side. 09/19/2021, Benign Core Biopsy on the left side. Maternal grandmother had breast cancer, age 40. Risk Values: Crystal 5 year model risk: 1.0%. NCI Lifetime model risk: 9.4%. Prior Study Comparison: 03/14/2021 Bilateral Screening Mammogram, [facility]. 02/27/2022 Bilateral MG 3D diag mammo w/cad FELISA, [facility]. 07/11/2023 Bilateral MG 3D screening mammo w/cad, [facility]. Tissue Density: The breasts are heterogeneously dense, which may obscure small masses. Findings: Analyzed By CAD. There is no suspicious group of microcalcifications or new suspicious mass in either breast. Overall Assessment: Benign, BI-RAD 2 Management: Screening Mammogram of both breasts in 1 year. . Patient should continue monthly self-breast exams. A clinical breast exam by your physician is recommended on an annual basis. This exam should not preclude additional follow-up of suspicious palpable abnormalities. Note on Crystal scores and lifetime risk: 1. A Crystal score greater than 3% is considered moderate risk. If this is the case, consider specialist referral to assess eligibility for a risk reducing agent. 2. If overall lifetime risk for the development of breast cancer is 20% or higher, the patient may qualify for future screening with alternating mammogram and breast MRI. [facility], , 09/01/2024 2:45 PM. Electronically signed and approved by: Mauricio Yin M.D. Radiologis
== END | disposition home or self-care (01) ==
LOC: RADMAMWWP 14:14
PROVIDERS: ATTEND Family Medicine
DX: Z12.31 Encounter for screening mammogram for malignant neoplasm of breast (principal); R92.333 Mammographic heterogeneous density, bilateral breasts; Z92.0 Personal history of contraception; Z80.3 Family history of malignant neoplasm of breast
CPT/HCPCS: 77063; 77067

== ENCOUNTER 2024-10-18 07:31 | Day surgery (SDC) | payer BC ==
[2024-10-15 12:29] VITALS: BMI 44.8
[2024-10-18] MEDS ORDERED: LIDOCAINE 1% (10MG/ML) FOR IV START INTRADERMA PRN (07:40)
--- NOTE | 2024-10-18 07:40 | P.GSHP ---
History of Present Illness H&P Date: 10/18/24 CHIEF COMPLAINT: GERD and dysphagia HISTORY OF PRESENT ILLNESS: The patient is a 44-year-old female who presents reports gastroesophageal reflux disease and dysphagia. Upper endoscopy was offered for further evaluation and management. PAST MEDICAL HISTORY: Please see list. PAST SURGICAL HISTORY: Please see list. MEDICATIONS: Please see list. ALLERGIES: Please see list. SOCIAL HISTORY: No illicit drug use FAMILY HISTORY: No reports of Crohn disease or ulcerative colitis. REVIEW OF ORGAN SYSTEMS: CONSTITUTIONAL: No reports of fevers or chills. GI: Denies any blood in stools or constipation. PHYSICAL EXAM: VITAL SIGNS: Stable GENERAL: Well-developed and pleasant in no acute distress. HEENT: No scleral icterus. Extraocular movements grossly intact. Moist buccal mucosa. NECK: Supple without lymphadenopathy. CHEST: Unlabored respirations. Equal bilateral excursions. CARDIOVASCULAR: Regular rate and rhythm. Distal 2+ pulses. ABDOMEN: Soft, nondistended. MUSCULOSKELETAL: No clubbing, cyanosis, or edema. ASSESSMENT: 1. Gastroesophageal reflux disease 2. Dysphagia PLAN: 1. Recommend proceeding with an upper endoscopy Past Medical History Past Medical History: Hypertension, Pneumonia Additional Past Medical History / Comment(s): CHRONIC ULCER'S X25 YEARS, MIGRAINES, ABDOMINAL PAIN. hernia (UMBILICAL, RIGHT INGUINAL) History of Any Multi-Drug Resistant Organisms: None Reported Past Surgical History: Bariatric Surgery, Breast Surgery, Section, Cholecystectomy, Hernia Repair, Orthopedic Surgery, Tonsillectomy, Uterine Ablation Additional Past Surgical History / Comment(s): CONCEPCIÓN-N-Y 2007 ([facility]). BREAST REDUCTION. TUMMY TUCK. INCARCERATED INGUINAL Hernia repair 08/22/14, "pins and plates in left ankle". 10/31/20 - pins and plates removed in left ankle, Lysis of adhesions-2022, Umbilical hernia repair 2023 Past Anesthesia/Blood Transfusion Reactions: No Reported Reaction, Family History of Problems w/ Anesthesia Additional Past Anesthesia/Blood Transfusion Reaction / Comment(s): MOTHER AWAKENS DURING SURGERY. Smoking Status: Former smoker - Past Family History Mother Family Medical History: Hypertension Father Family Medical History: Hypertension Brother(s) Family Medical History: No Reported History Medications and Allergies Home Medications Medication Instructions Recorded Confirmed Type HYDROcodone/APAP 7.5-325MG [[place] 1 tab PO TID 06/16/17 10/15/24 History 7.5-325] Fluticasone Propionate [Flonase 2 spray EA NOSTRIL DAILY PRN 09/25/18 10/15/24 History Allergy Relief] ALPRAZolam [Xanax] 0.5 mg PO BID PRN 06/26/19 10/15/24 History hydroCHLOROthiazide 25 mg PO DAILY 06/26/19 10/15/24 History Losartan [Cozaar] 100 mg PO DAILY 07/24/20 10/15/24 History busPIRone HCL [Buspar] 30 mg PO DAILY 07/24/20 10/15/24 History dilTIAZem HCL [Cardizem] 240 mg PO DAILY 07/24/20 10/15/24 History buPROPion HCL [Wellbutrin SR] 300 mg PO DAILY 09/14/21 10/15/24 History Loratadine [Claritin] 10 mg PO DAILY PRN 06/21/22 10/15/24 History QUEtiapine [SEROquel] 200 mg PO HS 06/21/22 10/15/24 History Simethicone [Gas-X] 125 mg PO AC-TID PRN #20 capsule 06/27/22 10/15/24 Rx Dicyclomine HCl 1 tab PO TID 10/13/24 10/15/24 History Famotidine 40 mg PO BID 10/13/24 10/15/24 History Hyoscyamine Sulfate [Levsin] 0.125 mg PO QID PRN 10/13/24 10/15/24 History Magnesium 1 tab PO DAILY 10/13/24 10/15/24 History Meclizine HCl [Antivert] 1 tab PO DAILY PRN 10/13/24 10/15/24 History Montelukast [Singulair] 1 tab PO DAILY 10/13/24 10/15/24 History Potassium Chloride ER [K-Dur 10] 1 tab PO DAILY 10/13/24 10/15/24 History Allergies Allergy/AdvReac Type Severity Reaction Status Date / Time sulfamethoxazole Allergy Unknown Verified 10/15/24 12:16 [From Bactrim] Childhood trimethoprim [From Bactrim] Allergy Unknown Verified 10/15/24 12:16 Childhood sumatriptan [From Imitrex] AdvReac Severe Rapid Verified 10/15/24 12:16 Heart Rate
[2024-10-18] MEDS ORDERED: PROPOFOL 10 MG/ML 20 ML VIAL IV ONE (08:14)
[2024-10-18] MEDS ORDERED: LIDOCAINE 1% INJ 10MG/ML (20 ML MDV) ONE (08:14)
[2024-10-18] MEDS: IV FLUID CONTINUATION 1,000 ML IV ONE (08:18)
[2024-10-18] MEDS: LACTATED RINGERS 1,000 ML IV SCH (08:18)
[2024-10-18 08:20] VITALS: TEMP 97
[2024-10-18 08:47] VITALS: BP 146/97; PULSE 71; RESP 18
--- NOTE | 2024-10-18 08:58 | P.PCN ---
Date of Procedure: 10/18/24 Description of Procedure: PREOPERATIVE DIAGNOSES: 1. Dysphagia 2. Gastric ulcers 3. History of Tricia-en-Y gastric bypass 4. Epigastric abdominal pain. POSTOPERATIVE DIAGNOSES: 1. Gastritis 2. Epigastric abdominal pain. 3. History of Tricia-en-Y gastric bypass PROCEDURE PERFORMED: Esophagogastrojejunoscopy with biopsies on the gastric pouch, esophagus, jejunum SURGEON: Kaitlin Enriquez MD ANESTHESIA: MAC. INDICATIONS: The patient is a 44-year-old female with prior history of Tricia-en-Y gastric bypass perform an outside institution. She presents with intermittent nausea and vomiting, particularly of the epigastric abdominal pain. With her history of Tricia-en-Y gastric bypass, upper endoscopy was offered for further evaluation and management. Benefits and risks described. Informed consent was obtained. DESCRIPTION: Patient was brought to the endoscopy suite and laid in the left lateral decubitus position. After adequate IV sedation, a bite block was placed. An Olympus gastroscope was passed along the posterior oropharynx down to the distal esophagus where the squamocolumnar junction was found at approximately 38 cm from the incisors. The diaphragmatic hiatus was found at 38 cm from the incisors. Her anastomosis was found at 46 cm, consistent with approximately 8 cm gastric pouch. A diaphragmatic hiatal hernia of 3 cm was confirmed. No evidence of foreign body was found. No active gastrojejunal ulceration was encountered. Biopsies along the gastric pouch. The scope was passed to 60 cm of the Tricia limb. No remnant of blind jejunal limb was retained. The GI tract was desufflated. The patient tolerated the procedure well. FINDINGS: 1. No acute gastrojejunal ulceration 2. No foreign body found along the anastomosis. 3. No elongated jejunal blind pouch. 4. Squamocolumnar junction at 38 cm from the incisors. 5. Diaphragmatic hiatus at 38 cm from the incisors. 6. No stricture of the anastomosis 7. Anastomosis at 46 cm from the incisors. 8. Gastric pouch 8 cm. 9. Chronic gastritis of the gastric pouch. Biopsies obtained 10. Biopsies obtained of jejunum 11. LA grade A erosive esophagitis with biopsies obtained PLAN: 1. May benefit from diagnostic laparoscopy due to abdominal pain Plan - Discharge Summary Discharge Rx Participant: Yes New Discharge Prescriptions: Continue HYDROcodone/APAP 7.5-325MG [Fleming 7.5-325] 1 tab PO TID Fluticasone Propionate [Flonase Allergy Relief] 2 spray EA NOSTRIL DAILY PRN PRN Reason: allergies hydroCHLOROthiazide 25 mg PO DAILY ALPRAZolam [Xanax] 0.5 mg PO BID PRN PRN Reason: Anxiety Losartan [Cozaar] 100 mg PO DAILY busPIRone HCL [Buspar] 30 mg PO DAILY dilTIAZem HCL [Cardizem] 240 mg PO DAILY buPROPion HCL [Wellbutrin SR] 300 mg PO DAILY Loratadine [Claritin] 10 mg PO DAILY PRN PRN Reason: allergies Simethicone [Gas-X] 125 mg PO AC-TID PRN #20 capsule PRN Reason: Pain Hyoscyamine Sulfate [Levsin] 0.125 mg PO QID PRN PRN Reason: stomach Famotidine 40 mg PO BID Dicyclomine HCl 1 tab PO TID Montelukast [Singulair] 1 tab PO DAILY QUEtiapine [SEROquel] 200 mg PO HS Potassium Chloride ER [K-Dur 10] 1 tab PO DAILY Magnesium 1 tab PO DAILY Meclizine HCl [Antivert] 1 tab PO DAILY PRN PRN Reason: dizziness Discharge Medication List HYDROcodone/APAP 7.5-325MG [Fleming 7.5-325] 1 tab PO TID 06/16/17 [History] Fluticasone Propionate [Flonase Allergy Relief] 2 spray EA NOSTRIL DAILY PRN 09/25/18 [History] ALPRAZolam [Xanax] 0.5 mg PO BID PRN 06/26/19 [History] hydroCHLOROthiazide 25 mg PO DAILY 06/26/19 [History] Losartan [Cozaar] 100 mg PO DAILY 07/24/20 [History] busPIRone HCL [Buspar] 30 mg PO DAILY 07/24/20 [History] dilTIAZem HCL [Cardizem] 240 mg PO DAILY 07/24/20 [History] buPROPion HCL [Wellbutrin SR] 300 mg PO DAILY 09/14/21 [History] Loratadine [Claritin] 10 mg PO DAILY PRN 06/21/22 [History] QUEtiapine [SEROquel] 200 mg PO HS 06/21/22 [History] Simethicone [Gas-X] 125 mg PO AC-TID PRN #20 capsule 06/27/22 [Rx] Dicyclomine HCl 1 tab PO TID 10/13/24 [History] Famotidine 40 mg PO BID 10/13/24 [History] Hyoscyamine Sulfate [Levsin] 0.125 mg PO QID PRN 10/13/24 [History] Magnesium 1 tab PO DAILY 10/13/24 [History] Meclizine HCl [Antivert] 1 tab PO DAILY PRN 10/13/24 [History] Montelukast [Singulair] 1 tab PO DAILY 10/13/24 [History] Potassium Chloride ER [K-Dur 10] 1 tab PO DAILY 10/13/24 [History] [facility]Ref[facility] [facility] [place] [facility] - 10/27/24 3:00 pm Patient Instructions/Handouts: *Surgery [facility] - (Anesthesia) Discharge Instructions Outpatient Surgery, Gastritis (DC), Upper Endoscopy (DC) Activity/Diet/Wound Care/Special Instructions: Drink plenty of fluids and rest today Discharge Disposition: HOME SELF-CARE
== END 2024-10-18 09:20 | disposition home or self-care (01) ==
LOC: ORWHC2ENDO 07:31
PROVIDERS: ATTEND Surgery Plastic and Reconstructive Surgery
DX: K29.50 Unspecified chronic gastritis without bleeding (principal); K25.9 Gastric ulcer, unspecified as acute or chronic, without hemorrhage or perforation; K21.9 Gastro-esophageal reflux disease without esophagitis; I10 Essential (primary) hypertension; Z79.899 Other long term (current) drug therapy; Z87.891 Personal history of nicotine dependence; Z88.1 Allergy status to other antibiotic agents; Z88.2 Allergy status to sulfonamides; Z90.49 Acquired absence of other specified parts of digestive tract; Z98.84 Bariatric surgery status; Z98.890 Other specified postprocedural states
CPT/HCPCS: 81025; 88305; 43239; J2003; J2704

== ENCOUNTER → 2024-10-27 | Outpatient (CLI) | payer BC ==
[2024-10-27 15:55] VITALS: BP 152/103; PULSE 81; RESP 16; TEMP 98.5; BMI 46.8
--- NOTE | 2024-10-27 16:21 | P.BASOAP ---
Subjective Progress Note Date: 10/27/24 Still having abdominal pain. She saw heart doctor in the past. EKG repeat. Needs scar tissue. Objective - Vital Signs Vital signs: Vital Signs Temp 98.5 F 10/27/24 15:49 Pulse 81 10/27/24 15:49 Resp 16 10/27/24 15:49 BP 152/103 10/27/24 15:49 Pulse Ox FiO2 Intake & Output 10/26/24 10/27/24 10/27/24 18:59 06:59 18:59 Weight 112.491 kg Assessment/Plan Plan: Date: 10/27/24 Initial Weight: 117.027 kg Initial BMI: 48.7 Current Weight: 112.491 kg Current BMI: 46.8 Type of Surgery: Total Volume in Band: Previous Volume: Volume Removed: Volume Added: Band Size:
== END ==
LOC: BARWHC3 14:54
PROVIDERS: ATTEND Surgery Plastic and Reconstructive Surgery
DX: E66.01 Morbid (severe) obesity due to excess calories (principal); F17.200 Nicotine dependence, unspecified, uncomplicated; Z88.1 Allergy status to other antibiotic agents; Z88.8 Allergy status to other drugs, medicaments and biological substances; Z88.2 Allergy status to sulfonamides; Z68.42 Body mass index [BMI] 45.0-49.9, adult
CPT/HCPCS: 99211

== ENCOUNTER → 2024-11-24 | Outpatient (CLI) | payer BC ==
--- NOTE | 2024-11-24 14:21 | CT ---
EXAMINATION TYPE: CT sinus wo con DATE OF EXAM: 11/24/2024 COMPARISON: None CLINICAL INDICATION: Female, 44 years old with history of J32.0 CHRONIC MAXILLARY SINUSITIS; PHH, chr onic sinusitis, polyps, and infection in maxillary sinus TECHNIQUE: CT scan of the sinuses is performed without contrast, axial images are obtained, coronal r eformatted images are also reviewed. CT DLP: 630.[address] CTDI: mGy Automated exposure control for dose reduction was used. FINDINGS: There are postsurgical changes of sinonasal nasal antrostomy. There are mild chronic inflammatory haseeb nges in the inferior aspect of the maxillary sinuses and to a lesser extent within the ethmoid sinuse s. The frontal sinuses are hypoplastic. The mastoid air cells are well aerated. Nasal cavity is intact. There are no focal osseous lesions. The intraorbital contents are normal and symmetric. IMPRESSION: 1. Postsurgical changes of bilateral sinonasal antrostomy. 2. Mild chronic laboratory change in the maxillary sinuses and ethmoid air cells 3 no air-fluid level s to suggest acute sinusitis. [facility], , 11/24/2024 2:19 PM
== END | disposition home or self-care (01) ==
LOC: RADCTMAIN 13:30
PROVIDERS: ATTEND Otolaryngology Sleep Medicine
DX: J32.0 Chronic maxillary sinusitis (principal); I10 Essential (primary) hypertension; J34.89 Other specified disorders of nose and nasal sinuses; Z98.890 Other specified postprocedural states
CPT/HCPCS: 70486